=== PATIENT | female | born 1980 | race Caucasian/White ===

== ENCOUNTER 2017-08-13 14:44 | Emergency (ER) | payer SELFPAY ==
[2017-08-13 15:16] VITALS: BP 124/80
[2017-08-13] MEDS ORDERED: NORMAL SALINE 1000 ML 1,000 ML IV PRN (16:17)
[2017-08-13] MEDS ORDERED: MORPHINE SULFATE 10 MG/ML INJ IV ONE (16:17)
[2017-08-13] MEDS ORDERED: ONDANSETRON HCL INJ/PF 4 MG/2 ML SDV IV ONE (16:17)
--- NOTE | 2017-08-13 16:18 | ER Document Report ---
ED Medical Screen (RME) - General Chief Complaint: Abdominal Pain Stated Complaint: ABDOMINAL PAIN Time Seen by Provider: 08/13/17 16:16 Notes: Patient presents with 1 year of right upper quadrant and epigastric pain. It is gotten worse over last 24 hours. She has severe nausea and diarrhea. She has had 3 previous C-sections and several D&Cs. No problems with urination. TRAVEL OUTSIDE OF THE [place] IN LAST 30 DAYS: No - Related Data Allergies/Adverse Reactions: No Known Allergies Allergy (Unverified 08/13/17 15:16) Home Medications: Current Home Medications No Home Medications 08/13/17 [History] Past Medical History - Social History Chew tobacco use (# tins/day): No Frequency of alcohol use: None Drug Abuse: None Neurological Medical History: Reports: Hx Migraine Renal/ Medical History: Denies: Hx Peritoneal Dialysis Past Surgical History: Reports: Hx Section - X3, Hx Genitourinary Surgery - D&Cs, Hx Hysterectomy - Immunizations Hx Diphtheria, Pertussis, Tetanus Vaccination: Yes Physical Exam - Vital signs Vitals: Temp Pulse Resp BP Pulse Ox 97.5 F 92 18 124/80 97 08/13/17 15:13 08/13/17 15:13 08/13/17 15:13 08/13/17 15:13 08/13/17 15:13 Course - Vital Signs Vital signs: Temp Pulse Resp BP Pulse Ox 97.5 F 92 18 124/80 97 08/13/17 15:13 08/13/17 15:13 08/13/17 15:13 08/13/17 15:13 08/13/17 15:13
[2017-08-13 17:12] LABS: ABSOLUTE BASOPHILS # (AUTO) 0.1 10^3/uL (0.0-0.2); ABSOLUTE EOSINOPHILS # (AUTO) 0.1 10^3/uL (0.0-0.6); ABSOLUTE LYMPHOCYTES (AUTO) 1.9 10^3/uL (0.5-4.7); ABSOLUTE MONOCYTES (AUTO) 0.4 10^3/uL (0.1-1.4); ABSOLUTE NEUT (AUTO) 4.9 10^3/uL (1.7-8.2); BASOPHILS % (AUTO) 0.9 % (0-2); EOSINOPHILS % (AUTO) 1.7 % (0-6); HEMOGLOBIN 15.4 g/dL (12.0-15.5); HGB HCT DIFFERENCE 2.2; LYMPHOCYTES % (AUTO) 25.9 % (13-45); MEAN CORPUSCULAR HEMOGLOBIN 36.6 pg (27.0-33.4); MEAN CORPUSCULAR HGB CONC 35.1 g/dL (32.0-36.0); MEAN CORPUSCULAR VOLUME 104 fl (80-97); MONOCYTES % (AUTO) 5.4 % (3-13); RED BLOOD COUNT 4.22 10^6/uL (3.72-5.28); RED CELL DISTRIBUTION WIDTH 12.9 % (11.5-14.0); SEGMENTED NEUTROPHILS % (AUTO) 66.1 % (42-78); WHITE BLOOD COUNT 7.5 10^3/uL (4.0-10.5)
[2017-08-13 17:29] LABS: APPEARANCE,URINE SLIGHTLY-CLOUDY; BILIRUBIN,URINE NEGATIVE (NEGATIVE); GLUCOSE, URINE NEGATIVE (NEGATIVE); KETONES,URINE NEGATIVE (NEGATIVE); LEUKOCYTE ESTERASE,URINE NEGATIVE (NEGATIVE); NITRITE,URINE NEGATIVE (NEGATIVE); PROTEIN,URINE 30 mg/dL (NEGATIVE); URINE SPECIFIC GRAVITY 1.021; UROBILINOGEN,URINE NEGATIVE mg/dL (<2.0)
[2017-08-13 17:39] LABS: ALANINE AMINOTRANSFERASE 24 U/L (9-52); ALBUMIN 4.6 g/dL (3.5-5.0); ALKALINE PHOSPHATASE 40 U/L (38-126); ANION GAP 16 (5-19); ASPARTATE AMINO TRANSFERASE 19 U/L (14-36); BILIRUBIN,DIRECT 0.4 mg/dL (0.0-0.4); BILIRUBIN,TOTAL 0.5 mg/dL (0.2-1.3); BLOOD UREA NITROGEN 14 mg/dL (7-20); CALCIUM 10.1 mg/dL (8.4-10.2); CARBON DIOXIDE 23 mmol/L (22-30); CHLORIDE 105 mmol/L (98-107); CREATININE RESULT 0.86 mg/dL (0.52-1.25); GLUCOSE 87 mg/dL (75-110); LIPASE 68.7 U/L (23-300); POTASSIUM 3.5 mmol/L (3.6-5.0); SODIUM 143.5 mmol/L (137-145); TOTAL PROTEIN 8.2 g/dL (6.3-8.2)
[2017-08-13] MEDS ORDERED: KETOROLAC TROMETHAMINE INJ/PF 30 MG/1 ML SDV IV ONE (19:23)
[2017-08-13] MEDS ORDERED: LIDOCAINE 2% VISCOUS SOLN 20 ML UDCUP PO ONE (19:32)
[2017-08-13] MEDS ORDERED: METOCLOPRAMIDE HCL ORAL SOLN 10 MG/10 ML UDCUP PO ONE (19:32)
[2017-08-13] MEDS ORDERED: MAG HYDROX/AL HYDROX/SIMETH SUSP 30 ML UDCUP PO ONE (19:32)
[2017-08-13] MEDS ORDERED: FAMOTIDINE 20 MG TABLET PO ONE (19:33)
--- NOTE | 2017-08-13 19:34 | ER Document Report ---
ED General - General Chief Complaint: Abdominal Pain Stated Complaint: ABDOMINAL PAIN Time Seen by Provider: 08/13/17 16:16 Notes: Patient is a 37-year-old female with a past medical history, history of chronic abdominal pain for the past 1 year who presents with an acute exacerbation of this chronic abdominal pain. States this pain is located in her central and epigastric abdomen. Describes it as a dull, burning pain that radiates as a burning pain up into her chest. States it is worsened by eating. She has tried Pepto-Bismol without improvement of her symptoms. States that typically the pain does resolve after she takes an [id number] medication such as Pepto-Bismol but has not responded today. She has not seen a primary care doctor regarding today's concerns. She denies any vomiting, melena, hematochezia or hematemesis. She has never seen a GI physician for this pain or had an endoscopy. TRAVEL OUTSIDE OF THE [place] IN LAST 30 DAYS: No - Related Data Allergies/Adverse Reactions: No Known Allergies Allergy (Unverified 08/13/17 15:16) Past Medical History - General Information source: Patient - Social History Smoking Status: Current Every Day Smoker Chew tobacco use (# tins/day): No Frequency of alcohol use: None Drug Abuse: None Lives with: Spouse/Significant other Family History: Reviewed & Not Pertinent Patient has suicidal ideation: No Patient has homicidal ideation: No Neurological Medical History: Reports: Hx Migraine Renal/ Medical History: Denies: Hx Peritoneal Dialysis Past Surgical History: Reports: Hx Section - X3, Hx Genitourinary Surgery - D&Cs, Hx Hysterectomy - Immunizations Hx Diphtheria, Pertussis, Tetanus Vaccination: Yes Review of Systems - Review of Systems Notes: Constitutional: Negative for fever. HENT: Negative for sore throat. Eyes: Negative for visual changes. Cardiovascular: Negative for chest pain. Respiratory: Negative for shortness of breath. Gastrointestinal: Positive for abdominal pain and nausea Genitourinary: Negative for dysuria. Musculoskeletal: Negative for back pain. Skin: Negative for rash. Neurological: Negative for headaches, weakness or numbness. 10 point ROS negative except as marked above and in HPI. Physical Exam - Vital signs Vitals: Temp Pulse Resp BP Pulse Ox 97.5 F 92 18 124/80 97 08/13/17 15:13 08/13/17 15:13 08/13/17 15:13 08/13/17 15:13 08/13/17 15:13 Interpretation: Normal Notes: PHYSICAL EXAMINATION: GENERAL: Appears mildly uncomfortable but no acute distress HEAD: Atraumatic, normocephalic. EYES: Pupils equal round and reactive to light, extraocular movements intact, sclera anicteric, conjunctiva are normal. ENT: nares patent, oropharynx clear without exudates. Moist mucous membranes. NECK: Normal range of motion, supple without lymphadenopathy LUNGS: Breath sounds clear to auscultation bilaterally and equal. No wheezes rales or rhonchi. HEART: Regular rate and rhythm without murmurs ABDOMEN: Soft, focal tenderness to the epigastrium and central abdomen. Negative Terrazas sign. Mild right upper quadrant abdominal tenderness. No focal rebound or guarding. No rigidity. Bowel sounds are present. EXTREMITIES: Normal range of motion, no pitting or edema. No cyanosis. NEUROLOGICAL: No focal neurological deficits. Moves all extremities spontaneously and on command. PSYCH: Normal mood, normal affect. SKIN: Warm, Dry, normal turgor, no rashes or lesions noted. Course - Re-evaluation Re-evalutation: 08/13/17 19:33 Patient presents with epigastric abdominal pain with associated reflux symptoms most consistent with likely chronic upper intestinal irritation. Right upper quadrant ultrasound does not demonstrate any evidence of acute cholecystitis or cholelithiasis. Although patient was reported to have a sonographic Terrazas sign and has sludge, there is no gallbladder wall thickening or pericholecystic fluid. Repeat abdominal exams again consistently show more pain in the epigastrium and central abdomen versus the right upper quadrant. I do not believe she requires an acute cholecystectomy as I suspect that based on her history and exam her symptoms are most more likely to be related to intestinal irritation versus an acute cholecystitis. Lipase is normal. No LFT changes. Based on history and exam, I do not suspect ACS, pulmonary embolus, SBO, mesenteric ischemia, acute pancreatitis, biliary pathology, or an abdominal aortic dissection. Patient has no lower abdominal tenderness to suggest an acute appendicitis. At this time will discharge with return precautions and follow-up recommendations. Verbal discharge instructions given a the bedside and opportunity for questions given. Medication warnings reviewed. Patient is in agreement with this plan and has verbalized understanding of return precautions and the need for primary care follow-up in the next 24-72 hours. - Vital Signs Vital signs: Temp Pulse Resp BP Pulse Ox 97.5 F 92 18 124/80 97 08/13/17 15:13 08/13/17 15:13 08/13/17 15:13 08/13/17 15:13 08/13/17 15:13 - Laboratory Result Diagrams: 08/13/17 16:50 08/13/17 16:50 Laboratory results interpreted by me: 08/13/17 08/13/17 08/13/17 16:36 16:50 16:50 MCV 104 H MCH 36.6 H Potassium 3.5 L Urine Protein 30 H - Diagnostic Test Radiology reviewed: Reports reviewed Discharge - Discharge Clinical Impression: Nausea Abdominal pain Qualifiers: Abdominal location: epigastric Qualified Code(s): R10.13 - Epigastric pain Condition: Good Disposition: HOME, SELF-CARE Additional Instructions: Your symptoms appear to be most consistent with stomach or upper intestinal irritation. Please begin taking famotidine 40 mg in the morning and 40 mg at night. This medicine can be purchased directly [id number]. You may also take medicine such as Pepto-Bismol or Tums to assist with your pain. Please return to emergency department immediately if you have worsening of your pain, shortness of breath, vomiting, become unable to exert yourself due to pain or difficulty breathing, you pass out, or have any pain that radiates into your arms, jaw, or back. Please also return if you have any additional symptoms that are concerning to you. Prescriptions: Sucralfate [Carafate 1 gm Tablet] 1 gm PO ACHS #120 tablet
--- NOTE | 2017-08-13 21:16 | RADIOLOGY REPORT (SQ) ---
EXAM DESCRIPTION: U/S ABDOMEN LIMITED W/O DOP COMPLETED DATE/TIME: 08/13/2017 9:01 pm REASON FOR STUDY: ruq, epigastric pain COMPARISON: None. TECHNIQUE: Dynamic and static grayscale images acquired of the abdomen and recorded on PACS. Additio nal selected color Doppler and spectral images recorded. LIMITATIONS: None. FINDINGS: PANCREAS: No masses. Visualized pancreatic duct normal caliber. LIVER: No masses. Echotexture normal. LIVER VASCULATURE: Normal directional flow of the main portal vein and hepatic veins. GALLBLADDER: Sludge in the gallbladder. No thickening of the gallbladder wall. ULTRASOUND-DETECTED TERRAZAS'S SIGN: Positive. INTRAHEPATIC DUCTS AND COMMON DUCT: CBD and intrahepatic ducts normal caliber. No filling defects. INFERIOR VENA CAVA: Normal flow. AORTA: No aneurysm. RIGHT KIDNEY: Normal size. Normal echogenicity. No solid or suspicious masses. No hydronephrosis. No calcifications. PERITONEAL AND RIGHT PLEURAL SPACE: No ascites or effusions. OTHER: No other significant findings. IMPRESSION: Gallbladder sludge. Positive ultrasound detected Terrazas's sign. TECHNICAL DOCUMENTATION: JOB ID: [id number]- All Rights Reserved
== END 2017-08-13 23:00 | disposition home or self-care (01) ==
LOC: ER 14:44
DX: R10.13 Epigastric pain (principal); G89.29 Other chronic pain; K82.8 Other specified diseases of gallbladder; R11.0 Nausea; F17.200 Nicotine dependence, unspecified, uncomplicated; Z90.710 Acquired absence of both cervix and uterus
CPT/HCPCS: 99284; 96361; 96374; 96375; 36415; 83690; 85025; 80053; 81001; 76705; J3490; J1885; J2270; J2405; J7030

== ENCOUNTER 2017-09-21 08:23 | Emergency (ER) | payer SELFPAY ==
[2017-09-21] MEDS ORDERED: MORPHINE SULFATE 10 MG/ML INJ IV ONE ×2 (09:02→11:28)
[2017-09-21] MEDS ORDERED: ONDANSETRON HCL INJ/PF 4 MG/2 ML SDV IV ONE (09:02)
[2017-09-21] MEDS ORDERED: FLUCONAZOLE 100 MG TABLET PO ONE (09:06)
--- NOTE | 2017-09-21 09:06 | ER Document Report ---
ED General - General Chief Complaint: Abdominal Pain Stated Complaint: ABDOMINAL PAIN, VOMITING Notes: 37-year-old female with a known history of gallbladder sludge presents with pain right upper quadrant worse with eating radiating the left upper quadrant consistent with nausea vomiting and weakness. This is been going on for about a month intermittently but is worse for 2 days. She says she has had fevers and chills but did not measure. She does have some vaginal discharge but it "feels like a yeast infection." No vaginal bleeding. Decreased oral intake for 2-3 days. TRAVEL OUTSIDE OF THE [place] IN LAST 30 DAYS: No - Related Data Allergies/Adverse Reactions: No Known Allergies Allergy (Unverified 09/21/17 08:26) Past Medical History - Social History Smoking Status: Unknown if Ever Smoked Family History: Reviewed & Not Pertinent, Other Patient has suicidal ideation: No Patient has homicidal ideation: No Neurological Medical History: Reports: Hx Migraine Renal/ Medical History: Denies: Hx Peritoneal Dialysis Past Surgical History: Reports: Hx Section - X3, Hx Genitourinary Surgery - D&Cs, Hx Hysterectomy - Immunizations Hx Diphtheria, Pertussis, Tetanus Vaccination: Yes Review of Systems - Review of Systems Notes: REVIEW OF SYSTEMS GEN: Denies fever, chills, weight loss ENT: Denies sore throat, nasal discharge, ear pain EYES: Denies blurry vision, eye pain, discharge CV: Denies chest pain, palpitations, edema RESP: Denies cough, shortness of breath, wheezing GI: Abdominal pain anorexia vomiting MSK: Denies joint pain/swelling, edema, SKIN: Denies rash, skin lesions LYMPH: Denies swollen glands/lymph nodes NEURO: Denies headache, focal weakness or numbness, dizziness PSYCH: Denies depression, suicidal or homicidal ideation PHYSICAL EXAMINATION General: No acute distress, well-nourished Head: Atraumatic, normocephalic ENT: Mouth normal, oropharynx moist, no exudates or tonsillar enlargement Eyes: Conjunctiva normal, pupils equal, lids normal Neck: No JVD, supple, no guarding CVS: Normal rate, regular rhythm, no murmurs Resp: No resp distress, equal and normal breath sounds bilaterally GI: Nondistended, soft, right upper quadrant tenderness with Terrazas's sign, no other tenderness or rebound or guarding Ext: No deformities, no edema, normal range of motion in upper and lower ext Back: No CVA or midline TTP Skin: No rash, warm Lymphatic: No lymphadeopathy noted Neuro: Awake, alert. Face symmetric. GCS 15. Physical Exam - Vital signs Vitals: Temp Pulse Resp BP Pulse Ox 98.2 F 100 16 138/85 H 98 09/21/17 08:26 09/21/17 08:26 09/21/17 08:26 09/21/17 08:26 09/21/17 08:26 Course - Re-evaluation Re-evalutation: 09/21/17 09:06 Ongoing right upper quadrant pain with nausea vomiting anorexia. Well- appearing patient but does have Terrazas sign. Differential includes biliary colic, sludge, stones, cholecystitis. In terms of vaginal discharge is likely yeast I will treat empirically as such. She will receive medicine for symptoms , labs and ultrasound. - Vital Signs Vital signs: Temp Pulse Resp BP Pulse Ox 97.5 F 77 16 113/70 96 09/21/17 11:28 09/21/17 11:28 09/21/17 08:26 09/21/17 11:28 09/21/17 11:28 - Laboratory Result Diagrams: 09/21/17 09:15 09/21/17 10:31 Laboratory results interpreted by me: 09/21/17 09/21/17 09:15 10:31 MCV 105 H MCH 36.1 H Chloride 109 H Carbon Dioxide 20 L AST 11 L Alkaline Phosphatase 37 L Discharge - Discharge Clinical Impression: Abdominal pain, bilateral upper quadrant, Biliary sludge determined by ultrasound Condition: Good Disposition: HOME, SELF-CARE Instructions: Gallbladder Disease ([facility]) Additional Instructions: Your ultrasound looks like it did last time, with sludge but no gallstones or infection. Please eat a mild diet with no fatty foods or spicy foods, take pain medicine and nausea medicine as needed, and call the surgeon today for a follow-up appointment. Prescriptions: Hydrocodone/Acetaminophen [[place] 5-325 Tablet] 1 each PO Q4 PRN 3 Days tablet PRN Reason: Ondansetron HCl [Zofran 4 mg Tablet] 1 - 2 tab PO Q4H PRN #10 tablet PRN Reason: Forms: Return to Work Referrals: OSMAN CLINE DO [SURESH OSPINA] - Follow up in 3-5 days
[2017-09-21 09:29] LABS: ABSOLUTE EOSINOPHILS # (AUTO) 0.1 10^3/uL (0.0-0.6); ABSOLUTE LYMPHOCYTES (AUTO) 1.8 10^3/uL (0.5-4.7); ABSOLUTE MONOCYTES (AUTO) 0.4 10^3/uL (0.1-1.4); ABSOLUTE NEUT (AUTO) 2.5 10^3/uL (1.7-8.2); BASOPHILS % (AUTO) 0.4 % (0-2); EOSINOPHILS % (AUTO) 1.9 % (0-6); HEMATOCRIT 41.1 % (36.0-47.0); HEMOGLOBIN 14.2 g/dL (12.0-15.5); HGB HCT DIFFERENCE 1.5; LYMPHOCYTES % (AUTO) 37.2 % (13-45); MEAN CORPUSCULAR HEMOGLOBIN 36.1 pg (27.0-33.4); MEAN CORPUSCULAR HGB CONC 34.5 g/dL (32.0-36.0); MEAN CORPUSCULAR VOLUME 105 fl (80-97); MONOCYTES % (AUTO) 8.8 % (3-13); RED BLOOD COUNT 3.93 10^6/uL (3.72-5.28); SEGMENTED NEUTROPHILS % (AUTO) 51.7 % (42-78); WHITE BLOOD COUNT 4.8 10^3/uL (4.0-10.5)
--- NOTE | 2017-09-21 10:52 | RADIOLOGY REPORT (SQ) ---
EXAM DESCRIPTION: U/S ABDOMEN LIMITED W/O DOP COMPLETED DATE/TIME: 09/21/2017 10:31 am REASON FOR STUDY: known sludge, ongoing n/v COMPARISON: Comparison 08/13/2017 TECHNIQUE: Dynamic and static grayscale images acquired of the liver and recorded on PACS. Additiona l selected color Doppler and spectral images recorded. Selected velocities recorded. LIMITATIONS: None. FINDINGS: LIVER: Normal in echogenicity and size. No focal lesions are seen. LIVER VASCULATURE: Normal directional flow of the main portal vein and hepatic veins. The IVC is pat ent. GALLBLADDER: Some sludge seen. No definite stones. No pericholecystic fluid. ULTRASOUND-DETECTED SMITH'S SIGN: Negative. INTRAHEPATIC DUCTS AND COMMON DUCT: No dilated intrahepatic ducts. CBD diameter normal. ASCITES: None. OTHER: No hydronephrosis right kidney. Limited visualization of the pancreas. No AAA. IMPRESSION: Some sludge seen of the gallbladder. No definite stones. TECHNICAL DOCUMENTATION: JOB ID: [id number] [employer]- All Rights Reserved
[2017-09-21 11:06] LABS: ALANINE AMINOTRANSFERASE 26 U/L (9-52); ALBUMIN 3.8 g/dL (3.5-5.0); ALKALINE PHOSPHATASE 37 U/L (38-126); ANION GAP 12 (5-19); ASPARTATE AMINO TRANSFERASE 11 U/L (14-36); BILIRUBIN,DIRECT 0.3 mg/dL (0.0-0.4); BILIRUBIN,TOTAL 0.4 mg/dL (0.2-1.3); BLOOD UREA NITROGEN 12 mg/dL (7-20); CARBON DIOXIDE 20 mmol/L (22-30); CHLORIDE 109 mmol/L (98-107); CREATININE RESULT 0.63 mg/dL (0.52-1.25); GLUCOSE 86 mg/dL (75-110); POTASSIUM 3.7 mmol/L (3.6-5.0); SODIUM 141.4 mmol/L (137-145); TOTAL PROTEIN 6.4 g/dL (6.3-8.2)
[2017-09-21 11:08] LABS: CALCIUM 8.9 mg/dL (8.4-10.2)
[2017-09-21 11:30] VITALS: BP 113/70
== END 2017-09-21 11:52 | disposition home or self-care (01) ==
LOC: ER 08:23
DX: R10.10 Upper abdominal pain, unspecified (principal); K83.8 Other specified diseases of biliary tract; Z90.710 Acquired absence of both cervix and uterus
CPT/HCPCS: 96376; 99284; 96374; 96375; 36415; 83690; 85025; 80053; 76705; J2270; J2405

== ENCOUNTER 2017-09-30 19:47 | Inpatient (IN) | payer MEDICAID ==
[2017-09-30] MEDS ORDERED: KETOROLAC TROMETHAMINE INJ/PF 30 MG/1 ML SDV IV ONE (20:50)
[2017-09-30] MEDS ORDERED: NORMAL SALINE 1000 ML 1,000 ML IV ONE (20:50)
[2017-09-30] MEDS ORDERED: ONDANSETRON HCL INJ/PF 4 MG/2 ML SDV IV ONE (20:50)
--- NOTE | 2017-09-30 20:51 | ER Document Report ---
ED Medical Screen (RME) - General Chief Complaint: Abdominal Pain Stated Complaint: VOMITING Time Seen by Provider: 09/30/17 20:49 Notes: Patient states this is her third visit in approximately a month for upper abdominal and epigastric pain. She states she has been diagnosed with gallbladder sludge. She states she has an appointment with a surgeon next Thursday but could not wait due to the pain and vomiting. TRAVEL OUTSIDE OF THE [place] IN LAST 30 DAYS: No - Related Data Allergies/Adverse Reactions: No Known Allergies Allergy (Unverified 09/21/17 08:26) Past Medical History - Social History Chew tobacco use (# tins/day): No Frequency of alcohol use: Rare Drug Abuse: None - Past Medical History Cardiac Medical History: Reports: Hx Hypercholesterolemia, Hx Hypertension Neurological Medical History: Reports: Hx Migraine Renal/ Medical History: Denies: Hx Peritoneal Dialysis Past Surgical History: Reports: Hx Section - X3, Hx Genitourinary Surgery - D&Cs, Hx Hysterectomy - Immunizations Hx Diphtheria, Pertussis, Tetanus Vaccination: Yes Physical Exam - Vital signs Vitals: Temp Pulse Resp BP Pulse Ox 98.2 F 107 H 18 123/79 99 09/30/17 20:07 09/30/17 20:07 09/30/17 20:07 09/30/17 20:07 09/30/17 20:07 Course - Vital Signs Vital signs: Temp Pulse Resp BP Pulse Ox 98.2 F 107 H 18 123/79 99 09/30/17 20:07 09/30/17 20:07 09/30/17 20:07 09/30/17 20:07 09/30/17 20:07
[2017-09-30 21:34] LABS: ABSOLUTE EOSINOPHILS # (AUTO) 0.1 10^3/uL (0.0-0.6); ABSOLUTE LYMPHOCYTES (AUTO) 2.5 10^3/uL (0.5-4.7); ABSOLUTE MONOCYTES (AUTO) 0.4 10^3/uL (0.1-1.4); ABSOLUTE NEUT (AUTO) 3.2 10^3/uL (1.7-8.2); BASOPHILS % (AUTO) 0.6 % (0-2); HEMATOCRIT 47.2 % (36.0-47.0); HGB HCT DIFFERENCE 0.8; LYMPHOCYTES % (AUTO) 41.1 % (13-45); MEAN CORPUSCULAR HEMOGLOBIN 35.5 pg (27.0-33.4); MEAN CORPUSCULAR HGB CONC 33.9 g/dL (32.0-36.0); MEAN CORPUSCULAR VOLUME 105 fl (80-97); MONOCYTES % (AUTO) 6.3 % (3-13); RED BLOOD COUNT 4.51 10^6/uL (3.72-5.28); RED CELL DISTRIBUTION WIDTH 13.3 % (11.5-14.0); WHITE BLOOD COUNT 6.2 10^3/uL (4.0-10.5)
--- NOTE | 2017-09-30 21:43 | ER Document Report ---
ED General - General Chief Complaint: Abdominal Pain Stated Complaint: VOMITING Time Seen by Provider: 09/30/17 20:49 TRAVEL OUTSIDE OF THE [place] IN LAST 30 DAYS: No - HPI Notes: Patient is a 37-year-old female with known history of gallbladder sludge who presents the ED for the second time in 8-9 days and the third time in the last 2 months complaining of right upper quadrant pain that radiates to her left upper quadrant, nausea, vomiting, and decreased p.o. intake. Patient states that over the last 3 days, patient has not had a normal meal because of the nausea and vomiting. Patient states that she has been having trouble keeping any fluids down over the last 24 hours as well. Patient states that she is scheduled to meet with the general surgeon in 6 days, but came here because the pain worsened and unable to keep anything down. Patient denies any drug allergies or significant medical history otherwise. Denies any headache, fever , URI, sore throat, chest pain, palpitations, syncope, cough, shortness of breath, wheeze, dyspnea, melena, hematochezia, hematemesis, acholic stool, diarrhea, urinary retention, dysuria, hematuria, back pain, loss of control of bowel or bladder, numbness/tingling, muscle paralysis/weakness, or rash. - Related Data Allergies/Adverse Reactions: No Known Allergies Allergy (Unverified 09/21/17 08:26) Past Medical History - Social History Smoking Status: Current Every Day Smoker Chew tobacco use (# tins/day): No Frequency of alcohol use: Rare Drug Abuse: None Family History: Reviewed & Not Pertinent, Other Patient has suicidal ideation: No Patient has homicidal ideation: No - Past Medical History Cardiac Medical History: Reports: Hx Hypercholesterolemia, Hx Hypertension Neurological Medical History: Reports: Hx Migraine Renal/ Medical History: Denies: Hx Peritoneal Dialysis Past Surgical History: Reports: Hx Section - X3, Hx Genitourinary Surgery - D&Cs, Hx Hysterectomy - Immunizations Hx Diphtheria, Pertussis, Tetanus Vaccination: Yes Review of Systems - Review of Systems Notes: REVIEW OF SYSTEMS: CONSTITUTIONAL : Denies fever, chills, or sweats. Denies recent illness. EENT: Denies eye, ear, throat, or mouth pain or symptoms. Denies nasal or sinus congestion or discharge. Denies throat, tongue, or mouth swelling or difficulty swallowing. CARDIOVASCULAR: Denies chest pain. Denies palpitations or racing or irregular heart beat. Denies ankle edema. RESPIRATORY: Denies cough, cold, or chest congestion. Denies shortness of breath, difficulty breathing, or wheezing. GASTROINTESTINAL: see hpi GENITOURINARY: Denies difficulty urinating, painful urination, burning, frequency, blood in urine, or discharge. FEMALE GENITOURINARY: Denies vaginal bleeding, heavy or abnormal periods, irregular periods. Denies vaginal discharge or odor. MUSCULOSKELETAL: Denies back or neck pain or stiffness. Denies joint pain or swelling. SKIN: Denies rash, lesions or sores. NEUROLOGICAL: Denies confusion or altered mental status. Denies passing out or loss of consciousness. Denies dizziness or lightheadedness. Denies headache. Denies weakness or paralysis or loss of use of either side. Denies problems with gait or speech. Denies sensory loss, numbness, or tingling. ALL OTHER SYSTEMS REVIEWED AND NEGATIVE. Dictation was performed using [email or web address] voice recognition software Physical Exam - Vital signs Vitals: Temp Pulse Resp BP Pulse Ox 98.2 F 107 H 18 123/79 99 09/30/17 20:07 09/30/17 20:07 09/30/17 20:07 09/30/17 20:07 09/30/17 20:07 Notes: PHYSICAL EXAMINATION: GENERAL: Well-appearing, well-nourished and in no acute distress. A&Ox4 HEAD: Atraumatic, normocephalic. EYES: Pupils equal round and reactive to light, extraocular movements intact, sclera anicteric, conjunctiva are normal. ENT: oropharynx clear without exudates. No tonsilar hypertrophy or erythema. Moist mucous membranes. NECK: Normal range of motion, supple without lymphadenopathy LUNGS: Breath sounds clear to auscultation bilaterally and equal. No wheezes rales or rhonchi. HEART: Regular rate and rhythm without murmurs, rubs, gallops. ABDOMEN: Soft, nondistended abdomen. No guarding, no rebound. No masses appreciated. Normal bowel sounds present. No CVA tenderness bilaterally. + tenderness to the RUQ and epigastrum. Musculoskeletal: FROM to passive/active. Strength 5+/5. Extremities: No cyanosis, clubbing, or edema b/l. Peripheral pulses 2+. Capillary refill less than 3 seconds. NEUROLOGICAL: Normal speech, normal gait. Normal sensory, motor exams PSYCH: Normal mood, normal affect. SKIN: Warm, Dry, normal turgor, no rashes or lesions noted. Course - Re-evaluation Re-evalutation: 09/30/17 23:[address] Arrington and Dr. Garcia (Gen Surg) Dr. Garcia wants patient admitted under his care. He will come in and eval patient and place his orders. Vitals and labs appear stable, clinically, however, she seems in discomfort from what is suspected to be a gallbladder etiology at this time. - Vital Signs Vital signs: Temp Pulse Resp BP Pulse Ox 98.2 F 107 H 18 123/79 99 09/30/17 20:07 09/30/17 20:07 09/30/17 20:07 09/30/17 20:07 09/30/17 20:07 - Laboratory Result Diagrams: 09/30/17 21:07 09/30/17 21:07 Laboratory results interpreted by me: 09/30/17 09/30/17 09/30/17 21:07 21:07 21:59 Hgb 16.0 H Hct 47.2 H MCV 105 H MCH 35.5 H Potassium 5.5 H Carbon Dioxide 17 L Anion Gap 21 H Calcium 11.2 H Total Protein 9.1 H Albumin 5.4 H Urine Ketones 20 H Discharge - Discharge Clinical Impression: Biliary sludge Condition: Stable Disposition: ADMITTED INPATIENT Admitting Provider: Surgicalist - Dr. Garcia Unit Admitted: Surgical Floor
[2017-09-30 21:46] LABS: ALANINE AMINOTRANSFERASE 31 U/L (9-52); ALBUMIN 5.4 g/dL (3.5-5.0); ALKALINE PHOSPHATASE 56 U/L (38-126); ASPARTATE AMINO TRANSFERASE 16 U/L (14-36); BILIRUBIN,DIRECT 0.4 mg/dL (0.0-0.4); BILIRUBIN,TOTAL 0.7 mg/dL (0.2-1.3); BLOOD UREA NITROGEN 16 mg/dL (7-20); CALCIUM 11.2 mg/dL (8.4-10.2); CREATININE RESULT 0.91 mg/dL (0.52-1.25); GLUCOSE 80 mg/dL (75-110); LIPASE 116.2 U/L (23-300); TOTAL PROTEIN 9.1 g/dL (6.3-8.2)
[2017-09-30 21:55] LABS: CARBON DIOXIDE 17 mmol/L (22-30); CHLORIDE 104 mmol/L (98-107); POTASSIUM 5.5 mmol/L (3.6-5.0); SODIUM 141.6 mmol/L (137-145)
[2017-09-30 22:07] LABS: ANION GAP 21 (5-19)
[2017-09-30 22:27] LABS: APPEARANCE,URINE CLEAR; BILIRUBIN,URINE NEGATIVE (NEGATIVE); GLUCOSE, URINE NEGATIVE (NEGATIVE); KETONES,URINE 20 mg/dL (NEGATIVE); LEUKOCYTE ESTERASE,URINE NEGATIVE (NEGATIVE); NITRITE,URINE NEGATIVE (NEGATIVE); PROTEIN,URINE NEGATIVE (NEGATIVE); URINE SPECIFIC GRAVITY 1.026; UROBILINOGEN,URINE NEGATIVE mg/dL (<2.0)
[2017-09-30] MEDS ORDERED: MORPHINE SULFATE 10 MG/ML INJ IV ONE (22:49)
--- NOTE | 2017-09-30 22:55 | RADIOLOGY REPORT (SQ) ---
EXAM DESCRIPTION: U/S ABDOMEN LIMITED W/O DOP COMPLETED DATE/TIME: 09/30/2017 10:42 pm REASON FOR STUDY: RUQ pain, n/v COMPARISON: 09/21/2017. TECHNIQUE: Dynamic and static grayscale images acquired of the abdomen and recorded on PACS. Lyno amy selected color Doppler and spectral images recorded. LIMITATIONS: None. FINDINGS: PANCREAS: No masses. Visualized pancreatic duct normal caliber. Obscured tail. LIVER: No masses. Echotexture normal. LIVER VASCULATURE: Normal directional flow of the main portal vein and hepatic veins. GALLBLADDER: No stones. Normal wall thickness. No pericholecystic fluid. Minimal gallbladder sludge. ULTRASOUND-DETECTED SMITH'S SIGN: Negative. INTRAHEPATIC DUCTS AND COMMON DUCT: 0.2 cm diameter CBD and intrahepatic ducts normal caliber. No parmjit ling defects. INFERIOR VENA CAVA: Normal flow. AORTA: No aneurysm. RIGHT KIDNEY: Normal size. Normal echogenicity. No solid or suspicious masses. No hydronephrosis. No calcifications. PERITONEAL AND RIGHT PLEURAL SPACE: No ascites or effusions. OTHER: No other significant findings. IMPRESSION: No acute findings. Minimal gallbladder sludge. TECHNICAL DOCUMENTATION: JOB ID: [id number] [email or web address]- All Rights Reserved
[2017-09-30] MEDS ORDERED: MAG HYDROX/AL HYDROX/SIMETH SUSP 30 ML UDCUP PO ONE (23:07)
[2017-09-30] MEDS ORDERED: METOCLOPRAMIDE HCL ORAL SOLN 10 MG/10 ML UDCUP PO ONE (23:07)
[2017-09-30] MEDS ORDERED: LIDOCAINE 2% VISCOUS SOLN 20 ML UDCUP PO ONE (23:07)
[2017-09-30] MEDS ORDERED: ACETAMINOPHEN 325 MG TABLET PO PRN (23:53)
[2017-09-30] MEDS ORDERED: ONDANSETRON 4 MG TAB.RAPDIS PO PRN (23:53)
[2017-09-30] MEDS ORDERED: PROMETHAZINE HCL INJ 25 MG/1 ML VIAL IV PRN (23:53)
[2017-09-30] MEDS ORDERED: OXYCODONE-ACETAMINOPHEN 5-325 MG TABLET PO PRN (23:53)
[2017-09-30] MEDS ORDERED: DEXTROSE 50%-WATER 25 GM/50 ML DISP.SYRIN IV PRN ×2 (23:53)
[2017-09-30] MEDS ORDERED: DEXTROSE 40% GEL 15 GM TUBE PO PRN ×2 (23:53)
[2017-09-30] MEDS ORDERED: ONDANSETRON HCL INJ/PF 4 MG/2 ML SDV IV PRN (23:53)
[2017-09-30] MEDS ORDERED: GLUCAGON,HUMAN RECOMB 1 MG INJ SUBCUT PRN (23:53)
[2017-09-30] MEDS ORDERED: MAGNESIUM HYDROXIDE SUSP 30 ML UDCUP PO PRN (23:53)
[2017-09-30] MEDS ORDERED: PROMETHAZINE HCL 25 MG TABLET PO PRN (23:53)
--- NOTE | 2017-09-30 23:56 | RADIOLOGY REPORT (SQ) ---
EXAM DESCRIPTION: CHEST PA/LAT COMPLETED DATE/TIME: 09/30/2017 11:29 pm REASON FOR STUDY: epigastric/RUQ pain COMPARISON: None. EXAM PARAMETERS: NUMBER OF VIEWS: two views TECHNIQUE: Digital Frontal and Lateral radiographic views of the chest acquired. RADIATION DOSE: NA LIMITATIONS: none FINDINGS: LUNGS AND PLEURA: No opacities, masses or pneumothorax. No pleural effusion. MEDIASTINUM AND HILAR STRUCTURES: No masses or contour abnormalities. HEART AND VASCULAR STRUCTURES: Heart normal size. No evidence for failure. BONES: No acute findings. HARDWARE: None in the chest. OTHER: No other significant finding. IMPRESSION: NO SIGNIFICANT RADIOGRAPHIC FINDING IN THE CHEST. TECHNICAL DOCUMENTATION: JOB ID: [id number] [email or web address]- All Rights Reserved
--- NOTE | 2017-10-01 00:08 | PDOC H&P ---
History of Present Illness Admission Date/PCP: 09/30/17 23:30 Patient complains of: Abdominal pain History of Present Illness: AMBER DAMICO is a 37 year old female who presents with a one-year history of abdominal pain. This is been worse over the past 3 months. She reports crampy epigastric and right upper quadrant pain which is worse after eating. She reports about a 100 pound weight loss over the past year because of these symptoms. She reports nausea and vomiting associated with eating as well. She has been seen 3 times in the emergency department over the past several months. She had a scheduled appointment to see a surgeon in the outpatient setting for this coming Thursday but because of the worsening pain nausea and vomiting she presented to the emergency department. Her gallbladder ultrasound revealed sludge. There is no pericholecystic fluid or gallbladder wall thickening. Laboratory studies were normal with normal white count as well as normal liver function test. Because of severe symptomatology, she is being admitted for cholecystectomy. She has no history of pancreatitis. She does not drink alcohol. She does smoke. She does not use nonsteroidals. She has no history of ulcer disease. Past Medical History Cardiac Medical History: Reports: Hyperlipidema, Hypertension Neurological Medical History: Reports: Migraine Psychiatric Medical History: Reports: Depression Past Surgical History Past Surgical History: Tube tympanoplasty Past Surgical History: Reports: Section - X3, Hysterectomy Social History Smoking Status: Current Every Day Smoker Cigarettes Packs Per Day: 0.5 Frequency of Alcohol Use: None Family History Family History: Reviewed & Not Pertinent, Other Parental Family History Reviewed: Yes Children Family History Reviewed: Yes Sibling(s) Family History Reviewed.: Yes Medication/Allergy Home Medications: Hydrocodone/Acetaminophen [[place] 5-325 Tablet] 1 each PO Q4 PRN 3 Days tablet 09/21/17 Ondansetron HCl [Zofran 4 mg Tablet] 1 - 2 tab PO Q4H PRN #10 tablet 09/21/17 Allergies/Adverse Reactions: No Known Allergies Allergy (Unverified 09/21/17 08:26) Physical Exam Vital Signs: Temp Pulse Resp BP Pulse Ox 98.2 F 107 H 18 123/79 99 09/30/17 20:07 09/30/17 20:07 09/30/17 20:07 09/30/17 20:07 09/30/17 20:07 Exam: Awake, alert, oriented. Appears uncomfortable. HEENT: Pupils equal and reactive to light, extraocular motions intact. Sclera is anicteric. Mucous membranes are dry. Neck: Supple without adenopathy or thyromegaly. Lungs: Clear Cardiovascular: Regular rate Abdomen: Soft, tender in the epigastric and right upper quadrant. She does not have Terrazas sign. No hepatomegaly is noted. Results Impressions: Abdomen Ultrasound 09/30/17 21:38 IMPRESSION: No acute findings. Minimal gallbladder sludge. Chest X-Ray 09/30/17 23:07 IMPRESSION: NO SIGNIFICANT RADIOGRAPHIC FINDING IN THE CHEST. Assessment & Plan - Diagnosis (1) Symptomatic cholelithiasis Is this a current diagnosis for this admission?: Yes Plan: She has symptomatic cholelithiasis and this is her third emergency department presentation. She does have right upper quadrant tenderness. She reports 100 pound weight loss over the past year secondary to symptoms of postprandial food intolerance. She will be admitted to the hospital. Start IV fluid hydration. Dr. Mcconnell will see her in the morning and discuss cholecystectomy with her at that time.
[2017-10-01] MEDS: DEXTROSE 5%-LACTATED RINGERS 1,000 ML IV PRN ×3 (00:32→23:38)
[2017-10-01] MEDS: MORPHINE SULFATE 10 MG/ML INJ IV PRN ×5 (00:35→20:35)
[2017-10-01] MEDS ORDERED: INFLUENZA ADLT QUAD (36MOS+) 2017-18 VAC 0.5 ML SYR IM PRN (02:32)
--- NOTE | 2017-10-01 09:16 | PDOC PROGRESS REPORT ---
Subjective Progress Note for:: 10/01/17 Subjective:: Feels better this morning still has some epigastric abdominal pain. Patient notes that symptoms have been present for over a year with resultant 100 pound weight loss. Physical Exam Vital Signs: Temp Pulse Resp BP Pulse Ox 97.9 F 65 16 80/49 L 97 10/01/17 07:50 10/01/17 07:50 10/01/17 07:50 10/01/17 07:50 10/01/17 07:50 Intake & Output 09/30/17 10/01/17 10/02/17 06:59 06:59 06:59 Intake Total 240 Output Total 0 Balance 240 Weight 71 kg General appearance: PRESENT: no acute distress, cooperative Respiratory exam: PRESENT: clear to auscultation jennie Cardiovascular exam: PRESENT: RRR GI/Abdominal exam: PRESENT: other - Soft, nondistended, epigastric and right upper quadrant mild tenderness to palpation with no peritoneal signs. Extremities exam: PRESENT: other - No swelling Results Impressions: Abdomen Ultrasound 09/30/17 21:38 IMPRESSION: No acute findings. Minimal gallbladder sludge. Chest X-Ray 09/30/17 23:07 IMPRESSION: NO SIGNIFICANT RADIOGRAPHIC FINDING IN THE CHEST. Assessment & Plan - Diagnosis (1) Abdominal pain Qualifiers: Abdominal location: epigastric Qualified Code(s): R10.13 - Epigastric pain Is this a current diagnosis for this admission?: Yes Plan: Hard to attribute 100 pound weight loss on fairly minimal findings on ultrasound , that is sludge only. Will obtain an abdominal pelvic CT scan to start her workup. If the study is unremarkable she will need an upper endoscopy.
[2017-10-01] MEDS ORDERED: NORMAL SALINE 1000 ML 1,000 ML IV PRN (09:37)
[2017-10-01] MEDS ORDERED: ENOXAPARIN SODIUM INJ 30 MG/0.3 ML DISP.SYRIN SUBCUT SCH (10:00)
[2017-10-01] MEDS ORDERED: MAGNESIUM HYDROXIDE SUSP 30 ML UDCUP PO PRN (11:00)
[2017-10-01] MEDS ORDERED: OXYCODONE-ACETAMINOPHEN 5-325 MG TABLET PO PRN (11:00)
[2017-10-01] MEDS ORDERED: ONDANSETRON 4 MG TAB.RAPDIS PO PRN (11:00)
[2017-10-01] MEDS ORDERED: PROMETHAZINE HCL INJ 25 MG/1 ML VIAL IV PRN (11:00)
[2017-10-01] MEDS ORDERED: PROMETHAZINE HCL 25 MG TABLET PO PRN (11:00)
[2017-10-01] MEDS ORDERED: ACETAMINOPHEN 325 MG TABLET PO PRN (11:00)
[2017-10-01] MEDS: ONDANSETRON HCL INJ/PF 4 MG/2 ML SDV IV PRN ×2 (11:21→20:35)
--- NOTE | 2017-10-01 13:24 | RADIOLOGY REPORT (SQ) ---
EXAM DESCRIPTION: CT ABD/PELVIS WITH IV ORAL COMPLETED DATE/TIME: 10/01/2017 12:57 pm REASON FOR STUDY: weight loss, abdominal pain COMPARISON: Abdominal ultrasound 09/30/2017, 09/21/2017, 08/13/2017 TECHNIQUE: CT scan of the abdomen and pelvis performed using helical scanning technique with dynamic intravenous contrast injection. Patient drank oral contrast. Images reviewed with lung, soft tissue, and bone windows. Reconstructed coronal and sagittal MPR imag es reviewed. Delayed images for evaluation of the urinary system also acquired. All images stored on PACS. All CT scanners at this facility use dose modulation, iterative reconstruction, and/or weight based d osing when appropriate to reduce radiation dose to as low as reasonably achievable (ALARA). [facility]: Dose Right [facility]: CareDose [facility]: Dose Right [facility]: Teradose 4D [facility]: Unbxd CONTRAST TYPE AND DOSE: contrast/concentration: Isovue 370.00 mg/ml; Total Contrast Delivered: 77.0 ml; Total Saline Delivered: 67.0 ml RENAL FUNCTION: Creatinine 0.91 RADIATION DOSE: Up-to-date CT equipment and radiation dose reduction techniques were employed. CTDIv ol: 9.1 - 12.9 mGy. DLP: 1163 mGy-cm.. LIMITATIONS: None. FINDINGS: There is wall thickening and stranding in the fat around the 2nd portion of the duodenum and duodenum old on axial images 25-34. Question duodenum ulcer or peptic disease/duodenitis. No e xtravasation of contrast or abscess is identified. No free air or fluid. Patient drank oral contrast. No CT evidence of bowel obstruction. No colonic diverticuli. No free air or fluid. LOWER CHEST: No significant findings. No nodules or infiltrates. LIVER: Normal size. No masses. No dilated ducts. SPLEEN: Normal size. No focal lesions. PANCREAS: No masses. No significant calcifications. No adjacent inflammation or peripancreatic fluid collections. Pancreatic duct not dilated. GALLBLADDER: No identified stones by CT criteria. No inflammatory changes to suggest cholecystitis. ADRENAL GLANDS: No significant masses or asymmetry. RIGHT KIDNEY AND URETER: No solid masses. No significant calcifications. No hydronephrosis or hyd roureter. LEFT KIDNEY AND URETER: No solid masses. No significant calcifications. No hydronephrosis or hydr oureter. AORTA AND VESSELS: No aneurysm. No dissection. Renal arteries, SMA, celiac without stenosis. RETROPERITONEUM: No retroperitoneal adenopathy, hemorrhage or masses. BOWEL AND PERITONEAL CAVITY: No masses or inflammatory changes. No free fluid or peritoneal masses. APPENDIX: Normal. PELVIS: No mass. No free fluid. Normal bladder. ABDOMINAL WALL: No masses. No hernias. BONES: No significant or acute findings. OTHER: No other significant finding. IMPRESSION: Wall thickening, luminal narrowing and surrounding inflammation along the proximal duode num worrisome for duodenitis, or peptic disease. Ulcer may be present. TECHNICAL DOCUMENTATION: JOB ID: [id number] Quality ID # [id number]: Final reports with documentation of one or more dose reduction techniques (e.g., Au tomated exposure control, adjustment of the mA and/or kV according to patient size, use of iterative reconstruction technique) 2010 [employer]- All Rights Reserved
--- NOTE | 2017-10-01 15:21 | PDOC PROGRESS REPORT ---
Subjective Progress Note for:: 10/01/17 Physical Exam Vital Signs: Temp Pulse Resp BP Pulse Ox 97.5 F 69 16 100/60 100 10/01/17 11:47 10/01/17 11:47 10/01/17 11:47 10/01/17 13:00 10/01/17 11:47 Intake & Output 09/30/17 10/01/17 10/02/17 06:59 06:59 06:59 Intake Total 240 Output Total 0 Balance 240 Weight 71 kg Results Impressions: Abdomen Ultrasound 09/30/17 21:38 IMPRESSION: No acute findings. Minimal gallbladder sludge. Chest X-Ray 09/30/17 23:07 IMPRESSION: NO SIGNIFICANT RADIOGRAPHIC FINDING IN THE CHEST. Abdomen/Pelvis CT 10/01/17 12:30 IMPRESSION: Wall thickening, luminal narrowing and surrounding inflammation along the proximal duodenum worrisome for duodenitis, or peptic disease. Ulcer may be present. Assessment & Plan - Diagnosis (1) Abdominal pain Qualifiers: Abdominal location: epigastric Qualified Code(s): R10.13 - Epigastric pain Is this a current diagnosis for this admission?: Yes Plan: CT scan demonstrates inflammatory changes around the duodenum consistent with peptic ulcer disease. Will place the patient on Prevacid. Will plan EGD tomorrow.
[2017-10-01] MEDS: LANSOPRAZOLE 30 MG TAB.RAP.DR PO SCH (16:20)
[2017-10-02] MEDS: LANSOPRAZOLE 30 MG TAB.RAP.DR PO SCH ×2 (05:21→16:46)
[2017-10-02] MEDS ORDERED: GLYCOPYRROLATE INJ 0.4 MG/2 ML VIAL ONE (12:02)
[2017-10-02] MEDS ORDERED: NALOXONE HCL INJ/PF 0.4 MG/1 ML SDV ONE ×2 (12:02→18:50)
[2017-10-02] MEDS ORDERED: MIDAZOLAM 2 MG/2 ML INJ ONE (12:03)
[2017-10-02] MEDS ORDERED: FLUMAZENIL INJ 0.5 MG/5 ML VIAL ONE ×2 (12:03→18:51)
[2017-10-02] MEDS ORDERED: EPINEPHRINE INJ 1 MG/10 ML DISP.SYRIN ONE ×2 (12:04→18:51)
[2017-10-02] MEDS ORDERED: ONDANSETRON HCL INJ/PF 4 MG/2 ML SDV ONE ×2 (12:32→18:50)
[2017-10-02] MEDS: MIDAZOLAM 2 MG/2 ML INJ ONE ×7 (12:36→20:39)
[2017-10-02] MEDS: FENTANYL CITRATE INJ/PF 100 MCG/2 ML AMPUL ONE ×4 (12:38→20:34)
[2017-10-02 14:53] LABS: ABSOLUTE EOSINOPHILS # (AUTO) 0.1 10^3/uL (0.0-0.6); ABSOLUTE LYMPHOCYTES (AUTO) 1.4 10^3/uL (0.5-4.7); ABSOLUTE MONOCYTES (AUTO) 0.4 10^3/uL (0.1-1.4); ABSOLUTE NEUT (AUTO) 3.2 10^3/uL (1.7-8.2); BASOPHILS % (AUTO) 0.3 % (0-2); EOSINOPHILS % (AUTO) 1.5 % (0-6); HEMATOCRIT 35.6 % (36.0-47.0); HGB HCT DIFFERENCE 1.3; LYMPHOCYTES % (AUTO) 27.7 % (13-45); MEAN CORPUSCULAR HEMOGLOBIN 35.8 pg (27.0-33.4); MEAN CORPUSCULAR HGB CONC 34.6 g/dL (32.0-36.0); MEAN CORPUSCULAR VOLUME 104 fl (80-97); MONOCYTES % (AUTO) 8.4 % (3-13); RED BLOOD COUNT 3.44 10^6/uL (3.72-5.28); RED CELL DISTRIBUTION WIDTH 12.8 % (11.5-14.0); SEGMENTED NEUTROPHILS % (AUTO) 62.1 % (42-78); WHITE BLOOD COUNT 5.1 10^3/uL (4.0-10.5)
[2017-10-02 14:55] LABS: HEMOGLOBIN 12.3 g/dL (12.0-15.5)
--- NOTE | 2017-10-02 15:22 | OPERATIVE REPORT E ---
Operative Report NAME: AMBER DAMICO : 1980 AGE: 37Y DATE OF SURGERY: 10/02/2017 ROOM: 416 INDICATION: A 37-year-old female admitted with abdominal pain. Upper endoscopy was requested. Patient was seen by Dr. Mcconnell and patient underwent upper scope by myself. PREOPERATIVE DIAGNOSIS: Abdominal pain. POSTOPERATIVE DIAGNOSIS: Prepyloric gastric ulcer, chronic looking penetrating about 1 cm in size causing deformity in the duodenal bulb and prepyloric gastritis. PROCEDURES: 1. Esophagoscopy. 2. Gastroscopy. 3. Duodenoscopy. SURGEON: JV COPPOLA M.D. TISSUE REMOVED OR ALTERED: Gastric biopsy for H. pylori. ANESTHESIA: Versed 6, fentanyl 100. DESCRIPTION: Baby scope passed under guided vision, no difficulties. Esophagoscopy junction at 40. No varices. Gastroscopy: Prepyloric gastric ulcer with some deformity in the antrum and duodenal bulb. Descending duodenum was not visualized. CONCLUSION: Prepyloric gastric ulcer and gastritis. The gastric ulcer looks chronic H. pylori. Biopsy obtained. PLAN: Continue same medications. We will obtain a serology for H. pylori and will do a serum gastrin. Case to be discussed with the attending. DICTATING PHYSICIAN: JV COPPOLA M.D. [id number] [facility]#: [id number] ID: [id number] JOB#: [id number] ACCT: [id number] cc:NATALIO MCCONNELL M.D., MAHMOUD M.D. PRUITT, RUSSELL M.D. >
[2017-10-02] MEDS: MORPHINE SULFATE 10 MG/ML INJ IV PRN (16:44)
[2017-10-02] MEDS ORDERED: GLUCAGON,HUMAN RECOMB 1 MG INJ ONE (18:51)
--- NOTE | 2017-10-02 19:16 | PDOC PROGRESS REPORT ---
Subjective Progress Note for:: 10/02/17 Subjective:: Patient wide-awake and alert. Complained of a headache but otherwise okay. Physical Exam Vital Signs: Temp Pulse Resp BP Pulse Ox 98.1 F 81 14 101/60 99 10/02/17 11:40 10/02/17 13:15 10/02/17 13:15 10/02/17 13:15 10/02/17 13:15 Intake & Output 10/01/17 10/02/17 10/03/17 06:59 06:59 06:59 Intake Total 240 6484 400 Output Total 0 2400 650 Balance 240 4084 -250 Weight 71 kg 71 kg Results Laboratory Results: 10/02/17 14:31 10/02/17 10/02/17 14:31 14:31 WBC 5.1 RBC 3.44 L Hgb 12.3 D Hct 35.6 L MCV 104 H MCH 35.8 H MCHC 34.6 RDW 12.8 Plt Count 166 Seg Neutrophils % 62.1 Lymphocytes % 27.7 Monocytes % 8.4 Eosinophils % 1.5 Basophils % 0.3 Absolute Neutrophils 3.2 Absolute Lymphocytes 1.4 Absolute Monocytes 0.4 Absolute Eosinophils 0.1 Absolute Basophils 0.0 C-Reactive Protein < 5.0 Impressions: Abdomen Ultrasound 09/30/17 21:38 IMPRESSION: No acute findings. Minimal gallbladder sludge. Chest X-Ray 09/30/17 23:07 IMPRESSION: NO SIGNIFICANT RADIOGRAPHIC FINDING IN THE CHEST. Abdomen/Pelvis CT 10/01/17 12:30 IMPRESSION: Wall thickening, luminal narrowing and surrounding inflammation along the proximal duodenum worrisome for duodenitis, or peptic disease. Ulcer may be present. Assessment & Plan - Diagnosis (1) Abdominal pain Qualifiers: Abdominal location: epigastric Qualified Code(s): R10.13 - Epigastric pain Is this a current diagnosis for this admission?: Yes (2) Gastric ulcer Qualifiers: Gastric ulcer chronicity: unspecified ulcer chronicity Is this a current diagnosis for this admission?: Yes Plan: Patient underwent esophagogastroduodenoscopy today. She was noted with a gastric ulcer. Biopsy was taken for H. pylori but the ulcer periphery was not biopsied due to concerns about possibility of causing bleeding. The endoscopy was felt that the gastric ulcer did not appear malignant. I have had a long discussion with the patient concerning management options. One option is to treat her with proton pump inhibitor and H. pylori treatment and re-scope her in a few weeks to ensure that the ulcer has healed. The other option is to go ahead and re-scope today and do biopsies to exclude diagnosis of malignancy followed by repeat scope in a few weeks if the biopsies are negative to ensure healing of the ulcer. I have discussed both of these options with the patient and the patient's . I have discussed with him the risk and benefits. They understand and want to proceed with a upper endoscopy and biopsies now.
[2017-10-02] MEDS: DEXTROSE 5%-LACTATED RINGERS 1,000 ML IV PRN (20:08)
--- NOTE | 2017-10-02 21:02 | Operative Report ---
Operative Report DATE OF SURGERY: 10/02/17 PREOPERATIVE DIAGNOSIS: Gastric ulcer POSTOPERATIVE DIAGNOSIS: Prepyloric ulcer OPERATION: Esophagogastroduodenoscopy with multiple antral and pyloric channel biopsies. ANESTHESIA: Moderate Sedation TISSUE REMOVED OR ALTERED: Prepyloric region. COMPLICATIONS: None ESTIMATED BLOOD LOSS: 10 cc INTRAOPERATIVE FINDINGS: Narrowing at the prepyloric region with marked inflammatory changes with mucosal thickening and a prepyloric ulcer with narrowing of the pylorus. Normal-appearing duodenal bulb and first and second portion the duodenum. PROCEDURE: Informed consent was obtained. Patient was brought to the endoscopy suite. IV sedation with Versed and fentanyl was administered. Endoscope was passed via the patient's mouth patient's prepyloric region was markedly inflamed and narrowed with a ulcer in this region. There was quite a bit of spasm in this area making visualization difficult. The scope was able to be passed into the duodenum. The duodenum itself appeared normal as did the duodenal bulb. However the pylorus was narrowed and the prepyloric region was markedly inflamed with mucosal thickening with deep-seated ulcer with the base that was difficult to visualize. Multiple biopsies were taken of this region with attempts at biopsy of the periphery of the ulcer as well. We had difficulty in sedating the patient. We had to administer 8 mg of Versed and 150 micrograms of fentanyl to finally get her sedated enough to do the biopsies. Patient did have a small hiatal hernia. At the distal esophagus there were small projections of salmon colored mucosa but no ulcerations. With the difficulty with sedating the patient to do the prepyloric biopsies I did not attempt to do a distal esophageal biopsies. Remainder of the esophagus appeared normal. Patient was taken to the recovery area in stable condition. Will await biopsy results.
[2017-10-03] MEDS: MORPHINE SULFATE 10 MG/ML INJ IV PRN ×5 (01:27→23:05)
[2017-10-03] MEDS: DEXTROSE 5%-LACTATED RINGERS 1,000 ML IV PRN (03:21)
[2017-10-03] MEDS: LANSOPRAZOLE 30 MG TAB.RAP.DR PO SCH ×2 (05:09→16:25)
[2017-10-03] MEDS: CLARITHROMYCIN 500 MG TABLET PO SCH ×2 (09:37→21:34)
[2017-10-03] MEDS: AMOXICILLIN TRIHYDRATE 500 MG CAPSULE PO SCH ×2 (09:37→21:33)
[2017-10-03] MEDS ORDERED: AMPICILLIN TRIHYD 500 MG CAPSULE PO SCH (10:00)
[2017-10-03] MEDS ORDERED: SUMATRIPTAN SUCCINATE 50 MG TABLET PO PRN (10:04)
[2017-10-03] MEDS: ONDANSETRON HCL INJ/PF 4 MG/2 ML SDV IV PRN (10:57)
--- NOTE | 2017-10-03 12:43 | PDOC PROGRESS REPORT ---
Subjective Progress Note for:: 10/03/17 Subjective:: Abdominal pain Physical Exam Vital Signs: Temp Pulse Resp BP Pulse Ox 98.1 F 86 20 105/61 94 10/03/17 11:37 10/03/17 11:37 10/03/17 11:37 10/03/17 11:37 10/03/17 11:37 Pulse Oximeter Continuous Start: 10/02/17 22: 04 Freq: RTQ4 Status: Complete Document 10/03/17 08:00 [facility] (Rec: 10/03/17 08:53 [facility] [email or web address]) Pulse Oximetry Assessment Oxygen Saturation (92-100) 95 Oxygen Delivery Method Room Air Fraction of Inspired Oxygen (FIO2) 21 Equipment Usage Equipment Discontinued Continuous SpO2 Machine # 6 Intake & Output 10/02/17 10/03/17 10/04/17 06:59 06:59 06:59 Intake Total 6484 3420 Output Total 2400 1650 Balance 4084 1770 Weight 71 kg 72.4 kg Exam: Abdomen is soft with the tenderness at the epigastric area Results Laboratory Results: 10/02/17 14:31 10/02/17 10/02/17 14:31 14:31 WBC 5.1 RBC 3.44 L Hgb 12.3 D Hct 35.6 L MCV 104 H MCH 35.8 H MCHC 34.6 RDW 12.8 Plt Count 166 Seg Neutrophils % 62.1 Lymphocytes % 27.7 Monocytes % 8.4 Eosinophils % 1.5 Basophils % 0.3 Absolute Neutrophils 3.2 Absolute Lymphocytes 1.4 Absolute Monocytes 0.4 Absolute Eosinophils 0.1 Absolute Basophils 0.0 C-Reactive Protein < 5.0 Impressions: Abdomen Ultrasound 09/30/17 21:38 IMPRESSION: No acute findings. Minimal gallbladder sludge. Chest X-Ray 09/30/17 23:07 IMPRESSION: NO SIGNIFICANT RADIOGRAPHIC FINDING IN THE CHEST. Abdomen/Pelvis CT 10/01/17 12:30 IMPRESSION: Wall thickening, luminal narrowing and surrounding inflammation along the proximal duodenum worrisome for duodenitis, or peptic disease. Ulcer may be present. Assessment & Plan - Time Time Spent with patient: 15-24 minutes - Inpatient Certification Medical Necessity: Need For IV Fluids, Need for Pain Control, Need for IV Antibiotics - Plan Summary Plan Summary: #1 patient had a upper endoscopy yesterday with biopsy. I spoke with Dr. Mcconnell who feels that patient should take it easy with diet since the ulcer right at the prepyloric area with a very narrow opening. 2. Start with anti-H pylori therapy while awaiting biopsy results. Start with Protonix drip because patient still continuing to have severe abdominal pains. 3. Start with clear liquids and gradually increased to full liquid diet 4. Hopefully can be discharged in the next 24-48 hours.
[2017-10-03] MEDS: NORMAL SALINE 100 ML with PANTOPRAZOLE SODIUM 80 MG IV PRN ×4 (13:28→23:34)
[2017-10-03] MEDS ORDERED: SUCRALFATE SUSP 1 GM/10 ML UDCUP PO ONE (13:30)
[2017-10-03] MEDS: SUCRALFATE SUSP 1 GM/10 ML UDCUP PO SCH ×2 (16:25→21:34)
[2017-10-04] MEDS: LANSOPRAZOLE 30 MG TAB.RAP.DR PO SCH (05:51)
[2017-10-04] MEDS: SUCRALFATE SUSP 1 GM/10 ML UDCUP PO SCH ×2 (07:37→11:03)
[2017-10-04] MEDS: AMOXICILLIN TRIHYDRATE 500 MG CAPSULE PO SCH (09:33)
[2017-10-04] MEDS: CLARITHROMYCIN 500 MG TABLET PO SCH (09:33)
[2017-10-04] MEDS: MORPHINE SULFATE 10 MG/ML INJ IV PRN (09:33)
--- NOTE | 2017-10-04 11:58 | DISCHARGE SUMMARY E ---
Discharge Summary NAME: AMBER DAMICO : 1980 AGE: 37Y ADMITTED: 09/30/2017 DISCHARGED: 10/04/2017 FINAL DIAGNOSIS: Gastric ulcer with severe abdominal pains with nausea and vomiting. PROCEDURES: Upper endoscopy by Dr. Whitley and by Dr. Mcconnell. HOSPITAL COURSE: This is a 37-year-old female with chronic abdominal pains about a year with nausea and vomiting and weight loss about 100 pounds. She has sludge in her gallbladder by ultrasound, but a CAT scan showed inflammation around the area of the duodenum. An upper endoscopy done by Dr. Whitley showed large inflamed area of the gastric ulcer, the prepyloric area. This was repeated by Dr. Mcconnell who this time took a biopsy. The first biopsy apparently was not done, though biopsy for H. pylori was obtained initially. The patient was then treated with anti-ulcer regimen with Protonix and clarithromycin and amoxicillin. The patient is being treated as if positive for H. pylori. The patient's symptoms improved and pain is more tolerable with pain pills on 10/04/2017. The patient able to tolerate a soft diet. The pains also subsided and abdomen is soft and nontender. The patient discharged improved somewhat on anti-H. pylori regimen and antacid regimen. The patient to be followed in the surgical clinic care of Dr. Mcconnell in about 2 weeks. The patient will be informed if H. pylori biopsy is negative and, therefore, can stop her anti-H. pylori medications. Otherwise, continue all the medications and follow up in the clinic. DICTATING PHYSICIAN: HORACIO LEIVA M.D. [id number] PHY#: [id number] ID: [id number] JOB#: [id number] ACCT: [id number] cc:ROXANNA RUIZ M.D., FAUSTINO M.D. >
[2017-10-04 12:16] VITALS: BP 107/66
== END 2017-10-04 13:47 | disposition home or self-care (01) | DRG 384 ==
LOC: ER 19:47 → UNDOADMIN 23:30 → EH 23:30 → 4W 10-01 01:57
PROVIDERS: ADMIT Specialist; ATTEND Specialist
PROC: 0DB68ZX Excision of Stomach, Via Natural or Artificial Opening Endoscopic, Diagnostic (ICD-10-PCS; 2017-10-02)
PROC: 0DD78ZX Extraction of Stomach, Pylorus, Via Natural or Artificial Opening Endoscopic, Diagnostic (ICD-10-PCS; principal; 2017-10-02 12:00)
DX: K25.7 Chronic gastric ulcer without hemorrhage or perforation (principal); A04.8 Other specified bacterial intestinal infections; K44.9 Diaphragmatic hernia without obstruction or gangrene; K29.70 Gastritis, unspecified, without bleeding; K83.8 Other specified diseases of biliary tract; F17.210 Nicotine dependence, cigarettes, uncomplicated; E78.5 Hyperlipidemia, unspecified; R63.4 Abnormal weight loss; F32.9 Major depressive disorder, single episode, unspecified; I10 Essential (primary) hypertension; G43.909 Migraine, unspecified, not intractable, without status migrainosus; Z90.710 Acquired absence of both cervix and uterus
CPT/HCPCS: 36415; 43239; 71020; 74177; 76705; 80053; 81001; 82941; 83690; 84703; 85025; 86140; 88305; 88342; 94762; 96361; 96374; 96375; 99285; J0171; J1610; J1885; J2250; J2270; J2310; J2405; J2550; J3010; J3490; J7030; S0164

== ENCOUNTER 2017-11-18 16:13 | Emergency (ER) | payer SELFPAY ==
--- NOTE | 2017-11-18 17:09 | ER Document Report ---
ED Medical Screen (RME) - General Chief Complaint: Vomiting Stated Complaint: VOMITING Time Seen by Provider: 11/18/17 17:03 Notes: 37-year-old female past medical history gastric ulcer here with complaints of one episode of emesis with bright red blood and small blood clots. Patient states she has never had this in the past. She has epigastric abdominal pain but states that she has had this for the past few months and it is at her baseline pain level and is not of concern today. She denies any liver disease alcohol use. Denies history of esophageal varices but states that heartburn runs in the family. EXAM Clear to auscultation bilaterally Tachycardic low 110s-120s Minimal epigastric tenderness to palpation No peritoneal signs TRAVEL OUTSIDE OF THE [place] IN LAST 30 DAYS: No - Related Data Allergies/Adverse Reactions: No Known Allergies Allergy (Verified 11/18/17 16:14) Home Medications: Current Home Medications No Home Medications 11/18/17 [History] Past Medical History - Social History Frequency of alcohol use: Rare Drug Abuse: None - Past Medical History Cardiac Medical History: Reports: Hx Hypercholesterolemia, Hx Hypertension Neurological Medical History: Reports: Hx Migraine. Denies: Hx Seizures Renal/ Medical History: Denies: Hx Peritoneal Dialysis Psychiatric Medical History: Reports: Hx Depression Past Surgical History: Reports: Hx Section - X3, Hx Genitourinary Surgery - D&Cs. Denies: Hx Hysterectomy - Immunizations Hx Diphtheria, Pertussis, Tetanus Vaccination: Yes History of Influenza Vaccine for 08/2017 - 01/2018 Season: Refused Physical Exam - Vital signs Vitals: Temp Pulse Resp BP Pulse Ox 97.9 F 104 H 18 118/72 100 11/18/17 16:30 11/18/17 16:30 11/18/17 16:30 11/18/17 16:30 11/18/17 16:30 Course - Vital Signs Vital signs: Temp Pulse Resp BP Pulse Ox 97.9 F 104 H 18 118/72 100 11/18/17 16:30 11/18/17 16:30 11/18/17 16:30 11/18/17 16:30 11/18/17 16:30
[2017-11-18] MEDS ORDERED: NORMAL SALINE 1000 ML 1,000 ML IV ONE (17:10)
[2017-11-18] MEDS ORDERED: ONDANSETRON HCL INJ/PF 4 MG/2 ML SDV IV ONE (17:10)
[2017-11-18] MEDS ORDERED: PANTOPRAZOLE SODIUM 40 MG VIAL IV ONE (17:14)
[2017-11-18] MEDS ORDERED: FENTANYL CITRATE INJ/PF 100 MCG/2 ML AMPUL IV ONE (17:14)
[2017-11-18 17:42] LABS: ABSOLUTE EOSINOPHILS # (AUTO) 0.1 10^3/uL (0.0-0.6); ABSOLUTE LYMPHOCYTES (AUTO) 1.1 10^3/uL (0.5-4.7); ABSOLUTE MONOCYTES (AUTO) 0.7 10^3/uL (0.1-1.4); ABSOLUTE NEUT (AUTO) 7.1 10^3/uL (1.7-8.2); BASOPHILS % (AUTO) 0.3 % (0-2); EOSINOPHILS % (AUTO) 1.6 % (0-6); HEMATOCRIT 40.3 % (36.0-47.0); HEMOGLOBIN 13.5 g/dL (12.0-15.5); LYMPHOCYTES % (AUTO) 12.6 % (13-45); MEAN CORPUSCULAR HEMOGLOBIN 35.3 pg (27.0-33.4); MEAN CORPUSCULAR HGB CONC 33.6 g/dL (32.0-36.0); MEAN CORPUSCULAR VOLUME 105 fl (80-97); MONOCYTES % (AUTO) 7.8 % (3-13); PLATELET COUNT 277 10^3/uL (150-450); RED BLOOD COUNT 3.83 10^6/uL (3.72-5.28); RED CELL DISTRIBUTION WIDTH 14.5 % (11.5-14.0); SEGMENTED NEUTROPHILS % (AUTO) 77.7 % (42-78); TOTAL CELLS COUNTED % (AUTO) 100 %; WHITE BLOOD COUNT 9.1 10^3/uL (4.0-10.5)
[2017-11-18 17:55] LABS: ALANINE AMINOTRANSFERASE 19 U/L (9-52); ALBUMIN 4.2 g/dL (3.5-5.0); ALKALINE PHOSPHATASE 47 U/L (38-126); ANION GAP 15 (5-19); ASPARTATE AMINO TRANSFERASE 16 U/L (14-36); BILIRUBIN,DIRECT 0.5 mg/dL (0.0-0.4); BILIRUBIN,TOTAL 0.5 mg/dL (0.2-1.3); BLOOD UREA NITROGEN 24 mg/dL (7-20); CALCIUM 10.4 mg/dL (8.4-10.2); CARBON DIOXIDE 23 mmol/L (22-30); CHLORIDE 104 mmol/L (98-107); GLUCOSE 80 mg/dL (75-110); LIPASE 45.9 U/L (23-300); POTASSIUM 4.9 mmol/L (3.6-5.0); SODIUM 141.9 mmol/L (137-145); TOTAL PROTEIN 6.9 g/dL (6.3-8.2)
--- NOTE | 2017-11-18 17:56 | RADIOLOGY REPORT (SQ) ---
EXAM DESCRIPTION: CHEST PA/LAT COMPLETED DATE/TIME: 11/18/2017 5:34 pm REASON FOR STUDY: vomiting blood; eval boerhaave's COMPARISON: 09/30/2017 EXAM PARAMETERS: NUMBER OF VIEWS: two views TECHNIQUE: Digital Frontal and Lateral radiographic views of the chest acquired. RADIATION DOSE: NA LIMITATIONS: none FINDINGS: LUNGS AND PLEURA: No opacities, masses or pneumothorax. No pleural effusion. MEDIASTINUM AND HILAR STRUCTURES: No masses or contour abnormalities. HEART AND VASCULAR STRUCTURES: Heart normal size. No evidence for failure. BONES: No acute findings. HARDWARE: None in the chest. OTHER: No other significant finding. IMPRESSION: NO SIGNIFICANT RADIOGRAPHIC FINDING IN THE CHEST. TECHNICAL DOCUMENTATION: JOB ID: [id number] [email or web address]- All Rights Reserved
--- NOTE | 2017-11-18 17:58 | ER Document Report ---
ED GI/ - General Chief Complaint: Vomiting Stated Complaint: VOMITING Time Seen by Provider: 11/18/17 17:03 Notes: The patient is a 37-year-old female, past medical history gastric ulcer, cholecystectomy, presents with 1 day of diarrhea and epigastric pain. She had an episode of vomiting and noticed blood in her vomit. She had 2 EGDs performed a few months ago which showed gastric and duodenal ulcers. She was taking Carafate and said this was helping her pain, but it ran out. When she saw her surgeon, Dr. Mcconnell, she was taken off the Carafate. Patient denies lightheadedness, blood in stool, dark stool, back pain, urinary symptoms, fevers , abdominal distention or rash. TRAVEL OUTSIDE OF THE [place] IN LAST 30 DAYS: No - Related Data Allergies/Adverse Reactions: No Known Allergies Allergy (Verified 11/18/17 16:14) Past Medical History - General Information source: Patient - Social History Smoking Status: Current Every Day Smoker Frequency of alcohol use: Rare Drug Abuse: None Family History: Reviewed & Not Pertinent, Other Patient has suicidal ideation: No Patient has homicidal ideation: No - Past Medical History Cardiac Medical History: Reports: Hx Hypercholesterolemia, Hx Hypertension Neurological Medical History: Reports: Hx Migraine. Denies: Hx Seizures Renal/ Medical History: Denies: Hx Peritoneal Dialysis Psychiatric Medical History: Reports: Hx Depression Past Surgical History: Reports: Hx Section - X3, Hx Genitourinary Surgery - D&Cs. Denies: Hx Hysterectomy - Immunizations Hx Diphtheria, Pertussis, Tetanus Vaccination: Yes Review of Systems - Review of Systems Notes: REVIEW OF SYSTEMS: CONSTITUTIONAL: -fevers, -chills EENT: -eye pain, -difficulty swallowing, -nasal congestion CARDIOVASCULAR:-chest pain, -syncope. RESPIRATORY: -cough, -SOB GASTROINTESTINAL: +epigastric abdominal pain, +nausea, +vomiting, +diarrhea GENITOURINARY: -dysuria, -hematuria MUSCULOSKELETAL: -back pain, -neck pain SKIN: -rash or skin lesions. HEMATOLOGIC: -easy bruising or bleeding. LYMPHATIC: -swollen, enlarged glands. NEUROLOGICAL: -altered mental status or loss of consciousness, -headache, - neurologic symptoms PSYCHIATRIC: -anxiety, -depression. ALL OTHER SYSTEMS REVIEWED AND NEGATIVE. Physical Exam - Vital signs Vitals: Temp Pulse Resp BP Pulse Ox 97.9 F 104 H 18 118/72 100 11/18/17 16:30 11/18/17 16:30 11/18/17 16:30 11/18/17 16:30 11/18/17 16:30 - Notes Notes: PHYSICAL EXAMINATION: GENERAL: Well-appearing, well-nourished and in no acute distress. HEAD: Atraumatic, normocephalic. EYES: Pupils equal round and reactive to light, extraocular movements intact, sclera anicteric, conjunctiva are normal. ENT: nares patent, oropharynx clear without exudates. Moist mucous membranes. NECK: Normal range of motion, supple without lymphadenopathy LUNGS: Breath sounds clear to auscultation bilaterally and equal. No wheezes rales or rhonchi. HEART: Regular rate and rhythm without murmurs ABDOMEN: Soft, mild epigastric tenderness, normoactive bowel sounds. No guarding, no rebound. No masses appreciated. EXTREMITIES: Normal range of motion, no pitting or edema. No cyanosis. NEUROLOGICAL: Cranial nerves grossly intact. Normal speech, normal gait. Normal sensory and motor exams. PSYCH: Normal mood, normal affect. SKIN: Warm, Dry, normal turgor, no rashes or lesions noted. Course - Re-evaluation Re-evalutation: Patient appears well. Her initial tachycardia in triage resolved after IV fluids and pain control. Patient's hemoglobin is 13.5 and she is hemodynamically stable. Instructed patient to increase her Nexium from once a day to twice a day and will add Carafate. She will follow-up with her surgeon and GI doctor for further evaluation and treatment. Given very strict return precautions and she understands. - Vital Signs Vital signs: Temp Pulse Resp BP Pulse Ox 97.9 F 104 H 18 118/72 100 11/18/17 16:30 11/18/17 16:30 11/18/17 16:30 11/18/17 16:30 11/18/17 16:30 - Laboratory Result Diagrams: 11/18/17 17:25 11/18/17 17:25 Laboratory results interpreted by me: 11/18/17 11/18/17 17:25 17:25 MCV 105 H MCH 35.3 H RDW 14.5 H Lymphocytes % 12.6 L BUN 24 H Calcium 10.4 H Direct Bilirubin 0.5 H Discharge - Discharge Clinical Impression: Epigastric pain, Nausea vomiting and diarrhea Condition: Stable Disposition: HOME, SELF-CARE Additional Instructions: Gastritis You have an inflammation of the stomach called gastritis. This commonly causes upper abdominal pain, nausea, and vomiting. In severe cases, bleeding of the stomach lining can occur. Gastritis can be caused by bacteria or viruses , alcohol, or stomach-irritating drugs. Begin with sips of clear liquids. Take increasing amounts of fluid over the first 24 hours. Then start small amounts of bland foods (such as dry toast , applesauce, mashed potato). Gradually resume your usual diet. You should take antacids every two hours until the pain has subsided. Acid -suppressing drugs may be prescribed as well. Avoid aspirin, caffeine, tobacco , and alcohol. If the abdominal pain worsens, or there is evidence of major bleeding in the stomach (such as black, tarry stool, bloody or black vomit, or lightheadedness), you should return immediately. Call the doctor if you aren't improved in 24 to 36 hours. VOMITING: Vomiting (or nausea without vomiting) can be caused by many other different problems. It can mean that something's wrong with the stomach, such as ulcers or inflammation or the intestinal tract, such as appendicitis. But it can also be a symptom of a problem that has nothing to do with the stomach or intestines. Vomiting is common with severe headaches, earaches, tonsillitis, and kidney infections, etc. We see it with pneumonia or heart attacks. Drugs can cause nausea and vomiting. Many abdominal problems cause vomiting; for example, gallstones, kidney stones, pancreatitis, and intestinal obstruction ( blocked bowels). In most cases, curing the vomiting depends on fixing the problem that caused it. For temporary relief, we may use an anti-nausea medicine. For home use, we can prescribe suppositories, chewable pills, pills that dissolve in the mouth, or liquid anti-nausea drugs. If the vomiting seems to be caused by a problem in the stomach, acid-suppressing drugs may be prescribed as well. It's important to avoid dehydration. Sip small amounts of clear liquids ( soft drinks, tea, broth, etc) . Try to take fluids frequently even if you are vomiting to prevent dehydration. Take increasing amounts of fluid and when liquids are being consumed successfully, advance to small amounts of bland food (toast, soups, mashed potatoes, etc.) until you are able to resume a regular diet. Avoid aspirin, tobacco, and alcohol. If the vomiting worsens, if the problem that's making you vomit worsens, or if there's evidence of bleeding in the stomach (such as black, tarry stool, or bloody or black vomit), you should return immediately. Also, return if abdominal pain worsens or becomes localized to one area or you develop high fever. Call your doctor if you aren't improved in 24 hours. DIARRHEA, NON-SPECIFIC: Diarrhea means frequent, watery stools. There are many causes. Any problem that keeps the intestinal tract from absorbing water from the stool can lead to diarrhea. A sudden new diarrhea problem is usually caused by a virus, food sensitivity, toxic bacteria, or drugs. In this case, we expect the problem to go away soon. Testing is done only if you seem seriously ill from the diarrhea. If you have chronic diarrhea, or diarrhea that keeps coming back, we need to find out why. Chronic diarrhea can be due to inflammation of the bowels such as Crohn's disease or ulcerative colitis, food sensitivity such as intolerance to lactose or wheat protein, irritable bowel syndrome, and other problems. If your diarrhea is a significant problem but it's not clear why you have it, we' ll refer you to a specialist for further testing. During an episode of diarrhea, drink small amounts (two to six ounces) of clear liquids (soft drinks, sport drinks, herb teas, broth, etc). Take fluids frequently to prevent dehydration. It's usually not a problem to take mild anti- diarrhea medication such as Kaopectate or Pepto-Bismol. As the diarrhea eases, advance to small amounts of bland food (mashed potato, toast) for 24 hours. Call the physician if blood appears in your vomit or stool, if vomiting lasts longer than 24 hours, if the abdominal pain worsens or becomes localized to one area, if you develop high fever, or if you become lightheaded and weak. VIRAL SYNDROME: The physician has diagnosed a viral infection. Viruses not only cause "colds," but can cause many different symptoms including generalized aching, fever, headache, cough, diarrhea, nausea, vomiting, and fatigue. The treatment, for the most part, is simply relief of symptoms. This means that antibiotics are usually not given. Rest, fluids, pain medications and, occasionally, medication for the specific symptoms that are most bothersome will be prescribed. Use good handwashing to avoid passing the virus to others. Shared toys should be cleaned with disinfectant. Clean the toilets, sinks, and counter surfaces in bathrooms. Launder clothing in hot water. Contact the physician if you develop any new or unusual symptoms such as severe headache, stiff neck, high fever, chest pain, productive cough, or shortness of breath. You should be rechecked if you don't see marked improvement within seven to 10 days. INTRAVENOUS (I V) FLUIDS: As part of your care today, you received intravenous (IV) fluids. IV fluids are administered to patients who are dehydrated or to those who have certain chemical (electrolyte) abnormalities that need correcting. ANTINAUSEA MEDICATION: You have been given a medication to suppress nausea and vomiting. This type of medication can be given as a shot, pill, or suppository. It will usually last for many hours. Pills and shots usually last six to eight hours. For the typical illness, only one or two doses of the medication may be necessary. Mild lightheadedness may occur. This type of medicine can cause drowsiness. Do not drive or operate dangerous machinery while under its influence. Do not mix with alcohol. See your doctor at once if you have muscle spasms or tightness, or uncontrollable motions (particularly of the neck, mouth, or jaw). Persistent vomiting or severe lightheadedness should also be evaluated by the physician. FOLLOW-UP CARE: If you have been referred to a physician for follow-up care, call the physician s office for an appointment as you were instructed or within the next two days. If you experience worsening or a significant change in your symptoms, notify the physician immediately or return to the Emergency Department at any time for re-evaluation. Prescriptions: Ondansetron [Zofran Odt 4 mg Tablet] 1 - 2 tab PO Q4H PRN #15 tab.rapdis PRN Reason: For Nausea/Vomiting Sucralfate [Carafate 1 gm Tablet] 1 gm PO ACHS #30 tablet Referrals: KIEL BEGUM MD [ACTIVE STAFF] - Follow up as needed
[2017-11-18] MEDS ORDERED: SUCRALFATE 1 GM TABLET PO ONE (19:18)
[2017-11-18 19:23] VITALS: BP 121/71
== END 2017-11-18 19:45 | disposition home or self-care (01) ==
LOC: ER 16:13
DX: R10.13 Epigastric pain (principal); R11.2 Nausea with vomiting, unspecified; R19.7 Diarrhea, unspecified; R00.0 Tachycardia, unspecified; E78.00 Pure hypercholesterolemia, unspecified; I10 Essential (primary) hypertension; Z90.49 Acquired absence of other specified parts of digestive tract
CPT/HCPCS: 99284; 96361; 96374; 96375; 36415; 83690; 85025; 80053; 71020; J3010; S0164; J2405; J7030

== ENCOUNTER 2017-11-23 17:52 | Emergency (ER) | payer MEDICAID ==
[2017-11-23] MEDS ORDERED: ONDANSETRON HCL INJ/PF 4 MG/2 ML SDV IV ONE ×2 (18:49→21:46)
[2017-11-23] MEDS ORDERED: PANTOPRAZOLE SODIUM 40 MG VIAL IV ONE (18:50)
[2017-11-23] MEDS ORDERED: DEXTROSE 5%-LACTATED RINGERS 1,000 ML IV ONE (18:50)
--- NOTE | 2017-11-23 18:53 | ER Document Report ---
ED Medical Screen (RME) - General Chief Complaint: Nausea/Vomiting/Diarrhea Stated Complaint: DIARRHEA Time Seen by Provider: 11/23/17 18:43 Notes: 37-year-old female patient with nausea vomiting diarrhea abdominal pain. She has been here 5 times since 08/13/2017 with abdominal issues. On October 02, 2017 she is brought in with gallbladder disease, but ended up having EGD twice with biopsies of ulcers. She last came in here on 11/18/2017 with symptoms and felt like things got worse when her Carafate was stopped. They started her Carafate back and increase Nexium but it did not seem to help any. She states she has not really been able to eat since Thursday and has lost 5 pounds. I have greeted and performed a rapid initial assessment of this patient. A comprehensive ED assessment and evaluation of the patient, analysis of test results and completion of the medical decision making process will be conducted by additional ED providers. TRAVEL OUTSIDE OF THE [place] IN LAST 30 DAYS: No - Related Data Allergies/Adverse Reactions: No Known Allergies Allergy (Verified 11/23/17 18:33) Past Medical History - Social History Chew tobacco use (# tins/day): No Frequency of alcohol use: None Drug Abuse: None - Past Medical History Cardiac Medical History: Reports: Hx Hypercholesterolemia, Hx Hypertension Neurological Medical History: Reports: Hx Migraine. Denies: Hx Seizures Renal/ Medical History: Denies: Hx Peritoneal Dialysis Psychiatric Medical History: Reports: Hx Depression Past Surgical History: Reports: Hx Section - X3, Hx Genitourinary Surgery - D&Cs x 2, Hx Hysterectomy - Immunizations Hx Diphtheria, Pertussis, Tetanus Vaccination: Yes History of Influenza Vaccine for 08/2017 - 01/2018 Season: Refused Physical Exam - Vital signs Vitals: Temp Pulse Resp BP Pulse Ox 98.4 F 108 H 18 114/78 96 11/23/17 18:15 11/23/17 18:15 11/23/17 18:15 11/23/17 18:15 11/23/17 18:15 Course - Vital Signs Vital signs: Temp Pulse Resp BP Pulse Ox 98.4 F 108 H 18 114/78 96 11/23/17 18:15 11/23/17 18:15 11/23/17 18:15 11/23/17 18:15 11/23/17 18:15
[2017-11-23 19:25] LABS: APPEARANCE,URINE SLIGHTLY-CLOUDY; BILIRUBIN,URINE NEGATIVE (NEGATIVE); COLOR,URINE YELLOW; GLUCOSE, URINE NEGATIVE (NEGATIVE); KETONES,URINE 20 mg/dL (NEGATIVE); LEUKOCYTE ESTERASE,URINE NEGATIVE (NEGATIVE); NITRITE,URINE NEGATIVE (NEGATIVE); PROTEIN,URINE 30 mg/dL (NEGATIVE); URINE SPECIFIC GRAVITY 1.041; UROBILINOGEN,URINE NEGATIVE mg/dL (<2.0)
[2017-11-23 19:37] LABS: ABSOLUTE EOSINOPHILS # (AUTO) 0.1 10^3/uL (0.0-0.6); ABSOLUTE LYMPHOCYTES (AUTO) 1.9 10^3/uL (0.5-4.7); ABSOLUTE MONOCYTES (AUTO) 0.6 10^3/uL (0.1-1.4); ABSOLUTE NEUT (AUTO) 11.4 10^3/uL (1.7-8.2); BASOPHILS % (AUTO) 0.2 % (0-2); EOSINOPHILS % (AUTO) 0.5 % (0-6); HEMATOCRIT 42.1 % (36.0-47.0); HEMOGLOBIN 14.3 g/dL (12.0-15.5); LYMPHOCYTES % (AUTO) 13.4 % (13-45); MEAN CORPUSCULAR HEMOGLOBIN 35.3 pg (27.0-33.4); MEAN CORPUSCULAR VOLUME 104 fl (80-97); MONOCYTES % (AUTO) 4.4 % (3-13); PLATELET COUNT 554 10^3/uL (150-450); RED BLOOD COUNT 4.06 10^6/uL (3.72-5.28); RED CELL DISTRIBUTION WIDTH 14.4 % (11.5-14.0); SEGMENTED NEUTROPHILS % (AUTO) 81.5 % (42-78); TOTAL CELLS COUNTED % (AUTO) 100 %
[2017-11-23 20:42] LABS: ALANINE AMINOTRANSFERASE 21 U/L (9-52); ALKALINE PHOSPHATASE 32 U/L (38-126); ANION GAP 9 (5-19); ASPARTATE AMINO TRANSFERASE 9 U/L (14-36); BILIRUBIN,DIRECT 0.2 mg/dL (0.0-0.4); BILIRUBIN,TOTAL 0.2 mg/dL (0.2-1.3); BLOOD UREA NITROGEN 24 mg/dL (7-20); CALCIUM 9.2 mg/dL (8.4-10.2); CARBON DIOXIDE 20 mmol/L (22-30); CHLORIDE 107 mmol/L (98-107); GLUCOSE 286 mg/dL (75-110); POTASSIUM 4.2 mmol/L (3.6-5.0); SODIUM 135.6 mmol/L (137-145); TOTAL PROTEIN 5.4 g/dL (6.3-8.2)
[2017-11-23] MEDS ORDERED: MAG HYDROX/AL HYDROX/SIMETH SUSP 30 ML UDCUP PO ONE (21:47)
[2017-11-23] MEDS ORDERED: LIDOCAINE 2% VISCOUS SOLN 20 ML UDCUP PO ONE (21:47)
[2017-11-23] MEDS ORDERED: METOCLOPRAMIDE HCL ORAL SOLN 10 MG/10 ML UDCUP PO ONE (21:47)
[2017-11-23] MEDS ORDERED: MORPHINE SULFATE 10 MG/ML INJ IV ONE (21:47)
--- NOTE | 2017-11-23 22:42 | ER Document Report ---
ED General - General Chief Complaint: Nausea/Vomiting/Diarrhea Stated Complaint: DIARRHEA Time Seen by Provider: 11/23/17 18:43 TRAVEL OUTSIDE OF THE [place] IN LAST 30 DAYS: No - HPI Notes: Patient is a 37-year-old female with a history of gastric ulcer, cholecystectomy who presents to the ED for her fifth visit since July for the same epigastric pain. Pt states that she has had the same pain everyday since her last visit. Pt has associated n/v. Patient states that she was evaluated a couple weeks ago and was given Carafate and increase in her Nexium. patient was recently diagnosed with Gastric ulcers and had biopsies performed with an EGD a few months ago. Patient states that she has had a decreased p.o. intake over the last several days because of her epigastric pain. Patient still urinating normally and having normal bowel movements otherwise. Patient has not noticed any hematemesis, melena, or hematochezia. Denies any drug allergies. Denies any headache, fever, neck pain, changes in vision/speech/mentation/hearing, URI, sore throat, chest pain, palpitations, syncope, cough, shortness of breath, wheeze, dyspnea, diarrhea, urinary retention, dysuria, hematuria, loss of control of bowel or bladder, numbness/ tingling, muscle paralysis/weakness, or rash. - Related Data Allergies/Adverse Reactions: No Known Allergies Allergy (Verified 11/23/17 18:33) Past Medical History - Social History Smoking Status: Current Every Day Smoker Chew tobacco use (# tins/day): No Frequency of alcohol use: None Drug Abuse: None Family History: Reviewed & Not Pertinent, Other Patient has suicidal ideation: No Patient has homicidal ideation: No - Past Medical History Cardiac Medical History: Reports: Hx Hypercholesterolemia, Hx Hypertension Neurological Medical History: Reports: Hx Migraine. Denies: Hx Seizures Renal/ Medical History: Denies: Hx Peritoneal Dialysis Psychiatric Medical History: Reports: Hx Depression Past Surgical History: Reports: Hx Section - X3, Hx Genitourinary Surgery - D&Cs x 2, Hx Hysterectomy - Immunizations Hx Diphtheria, Pertussis, Tetanus Vaccination: Yes Review of Systems - Review of Systems Notes: REVIEW OF SYSTEMS: CONSTITUTIONAL : Denies fever, chills, or sweats. Denies recent illness. EENT: Denies eye, ear, throat, or mouth pain or symptoms. Denies nasal or sinus congestion or discharge. Denies throat, tongue, or mouth swelling or difficulty swallowing. CARDIOVASCULAR: Denies chest pain. Denies palpitations or racing or irregular heart beat. Denies ankle edema. RESPIRATORY: Denies cough, cold, or chest congestion. Denies shortness of breath, difficulty breathing, or wheezing. GASTROINTESTINAL: see hpi GENITOURINARY: Denies difficulty urinating, painful urination, burning, frequency, blood in urine, or discharge. MUSCULOSKELETAL: Denies back or neck pain or stiffness. Denies joint pain or swelling. SKIN: Denies rash, lesions or sores. NEUROLOGICAL: Denies confusion or altered mental status. Denies passing out or loss of consciousness. Denies dizziness or lightheadedness. Denies headache. Denies problems with gait or speech. Denies sensory loss, numbness, or tingling. Denies seizures. ALL OTHER SYSTEMS REVIEWED AND NEGATIVE. Dictation was performed using [employer] voice recognition software Physical Exam - Vital signs Vitals: Temp Pulse Resp BP Pulse Ox 98.4 F 108 H 18 114/78 96 11/23/17 18:15 11/23/17 18:15 11/23/17 18:15 11/23/17 18:15 11/23/17 18:15 Notes: PHYSICAL EXAMINATION: GENERAL: Well-appearing, well-nourished and in no acute distress. A&Ox4 HEAD: Atraumatic, normocephalic. EYES: Pupils equal round and reactive to light, extraocular movements intact, sclera anicteric, conjunctiva are normal. ENT: Nares patent and without discharge. oropharynx clear without exudates. No tonsilar hypertrophy or erythema. Moist mucous membranes. No sinus tenderness. NECK: Normal range of motion, supple without lymphadenopathy. No rigidity/ meningismus. LUNGS: Breath sounds clear to auscultation bilaterally and equal. No wheezes rales or rhonchi. HEART: Regular rate and rhythm without murmurs, rubs, gallops. ABDOMEN: Soft, nondistended abdomen. No guarding, no rebound. No masses appreciated. Normal bowel sounds present. No CVA tenderness bilaterally. + tenderness to the epigastrum. No lower abdominal tenderness. Musculoskeletal: FROM to passive/active. Strength 5+/5. Extremities: No cyanosis, clubbing, or edema b/l. Peripheral pulses 2+. Capillary refill less than 3 seconds. NEUROLOGICAL: Cranial nerves grossly intact. Normal speech, normal gait. Normal sensory, motor exams PSYCH: Normal mood, normal affect. SKIN: Warm, Dry, normal turgor, no rashes or lesions noted. Course - Re-evaluation Re-evalutation: 11/23/17 23:45 Patient is an afebrile, well-hydrated, 37-year-old female who presents to the ED with epigastric pain, chronic. Vitals are stable. PE is otherwise unremarkable. CBC, CMP, lipase, urinalysis, HCG, guaiac unremarkable for any acute pathology at this time. IV fluids given. Patient is tolerating p.o. x- ray was unremarkable for any acute pathology as well. GI cocktail was given which improved symptoms. Low suspicion/risk for acute appendicitis, bowel obstruction, acute cholecystitis, acute cholangitis, perforated diverticulitis, incarcerated hernia, pancreatitis, perforated ulcer, peritonitis, sepsis, pelvic inflammatory disease, ectopic , tubo-ovarian abscess, ovarian torsion, or other systemic emergent condition at this time. Patient is aware that her condition can change from initial presentation and she needs to monitor symptoms closely and seek medical attention if any acute changes. Conservative measures otherwise for symptoms. Recheck with your PCM in 3-5 days. Schedule an appointment/keep your appointment with GI. Return to the ED with any worsening/concerning symptoms otherwise as reviewed in discharge. Patient is in agreement. - Vital Signs Vital signs: Temp Pulse Resp BP Pulse Ox 98.4 F 108 H 18 114/78 96 11/23/17 18:15 11/23/17 18:15 11/23/17 18:15 11/23/17 18:15 11/23/17 18:15 - Laboratory Result Diagrams: 11/23/17 19:13 11/23/17 20:10 Laboratory results interpreted by me: 11/23/17 11/23/17 11/23/17 18:58 19:13 20:10 WBC 14.0 H MCV 104 H MCH 35.3 H RDW 14.4 H Plt Count 554 H Seg Neutrophils % 81.5 H Absolute Neutrophils 11.4 H Sodium 135.6 L Carbon Dioxide 20 L BUN 24 H Glucose 286 H AST 9 L Alkaline Phosphatase 32 L Total Protein 5.4 L Albumin 3.0 L Urine Protein 30 H Urine Ketones 20 H Discharge - Discharge Clinical Impression: Epigastric pain Condition: Stable Disposition: HOME, SELF-CARE Instructions: Antinausea Medication ([facility]), Evaluation of Upper Abdominal Pain ( [facility]) Additional Instructions: Maintain adequate fluid and food intake [place] diet ([employer] Bananas, rice, apples, toast, etc Avoid spices, caffeine, smoking, acidic foods/liquids, eating late at night; try to elevate head of bed when sleeping Zofran as needed tylenol if needed Take your Nexium and Carafate as directed Monitor for any worsening symptoms Make sure you are staying hydrated enough to urinate and have normal BM's Recheck with your PCM in 3-5 days Call Gastroenterology tomorrow to schedule an appointment if you have not yet done so* Return to the ED with any worsening symptoms and/or development of fever, headache, chest pain, palpitations, syncope, shortness of breath, trouble breathing, abdominal pain, n/v/d, blood in stool/urine, weakness, or other worsening symptoms that are concerning to you. Prescriptions: Promethazine HCl [Phenergan 25 mg Supp.rect] 1 supp TN Q6H #15 supp.rect Forms: Smoking Cessation Education Referrals: PRADIP MARTINEZ MD [ACTIVE STAFF] - Follow up as needed KIEL BEGUM MD [ACTIVE STAFF] - Follow up as needed
--- NOTE | 2017-11-23 22:46 | RADIOLOGY REPORT (SQ) ---
EXAM DESCRIPTION: CHEST PA/LAT COMPLETED DATE/TIME: 11/23/2017 10:33 pm REASON FOR STUDY: epigastric pain COMPARISON: 11/18/2017. TECHNIQUE: Frontal and lateral radiographic views of the chest acquired. NUMBER OF VIEWS: Two view. LIMITATIONS: None. FINDINGS: LUNGS AND PLEURA: No opacities, masses or pneumothorax. No pleural effusion. MEDIASTINUM AND HILAR STRUCTURES: No masses or contour abnormalities. HEART AND VASCULAR STRUCTURES: Heart normal size. No evidence for failure. BONES: No acute findings. HARDWARE: None in the chest. OTHER: No other significant finding. IMPRESSION: NO SIGNIFICANT RADIOGRAPHIC FINDING IN THE CHEST. TECHNICAL DOCUMENTATION: JOB ID: [id number] [employer]- All Rights Reserved
[2017-11-23] MEDS ORDERED: NORMAL SALINE 1000 ML 1,000 ML IV ONE (22:53)
[2017-11-24 00:18] VITALS: BP 116/65
== END 2017-11-24 00:21 | disposition home or self-care (01) ==
LOC: ER 17:52
DX: K25.9 Gastric ulcer, unspecified as acute or chronic, without hemorrhage or perforation (principal); Z79.899 Other long term (current) drug therapy; R10.13 Epigastric pain; G89.29 Other chronic pain; R11.2 Nausea with vomiting, unspecified; F17.200 Nicotine dependence, unspecified, uncomplicated; Z90.49 Acquired absence of other specified parts of digestive tract; Z98.890 Other specified postprocedural states; I10 Essential (primary) hypertension
CPT/HCPCS: 96376; 99284; 96361; 96374; 96375; 36415; 83690; 85025; 82272; 81025; 80053; 81001; 71046; J3490 ×3; J2270; S0164; J2405; J7030

== ENCOUNTER 2017-11-28 10:31 | Emergency (ER) | payer MEDICAID ==
[2017-11-28] MEDS ORDERED: METOCLOPRAMIDE HCL ORAL SOLN 10 MG/10 ML UDCUP PO ONE (10:36)
[2017-11-28] MEDS ORDERED: MAG HYDROX/AL HYDROX/SIMETH SUSP 30 ML UDCUP PO ONE (10:36)
[2017-11-28] MEDS ORDERED: LIDOCAINE 2% VISCOUS SOLN 20 ML UDCUP PO ONE (10:36)
[2017-11-28] MEDS ORDERED: MORPHINE SULFATE 10 MG/ML INJ IV ONE (11:06)
[2017-11-28] MEDS ORDERED: NORMAL SALINE 1000 ML 1,000 ML IV ONE ×2 (11:06→12:35)
[2017-11-28] MEDS ORDERED: METOCLOPRAMIDE HCL INJ/PF 10 MG/2 ML SDV IV ONE (11:06)
[2017-11-28 11:48] LABS: APPEARANCE,URINE CLEAR; BILIRUBIN,URINE NEGATIVE (NEGATIVE); COLOR,URINE YELLOW; GLUCOSE, URINE NEGATIVE (NEGATIVE); KETONES,URINE TRACE mg/dL (NEGATIVE); LEUKOCYTE ESTERASE,URINE NEGATIVE (NEGATIVE); NITRITE,URINE NEGATIVE (NEGATIVE); PROTEIN,URINE 30 mg/dL (NEGATIVE); URINE SPECIFIC GRAVITY 1.047; UROBILINOGEN,URINE NEGATIVE mg/dL (<2.0)
--- NOTE | 2017-11-28 11:51 | ER Document Report ---
ED GI/ - General Chief Complaint: Abdominal Pain Stated Complaint: ABDOMINAL PAIN Time Seen by Provider: 11/28/17 10:36 Mode of Arrival: Medic Information source: Patient Notes: Patient is a 37-year-old female with a history of peptic ulcer disease who presents to the ER today for upper abdominal pain. Patient states that she does not have insurance that she has not been able to see a lapping machine tender or any other doctor for quite some time. Patient states that she takes Carafate and Nexium at home but she "cannot keep anything down because of the pain." She states that she has been trying to drink and eat but that she vomits right afterwards for many weeks now. Patient was found by EMS doubled over her toilet trying to throw up after being called to the house. She denies any diarrhea, last normal bowel movement was yesterday. TRAVEL OUTSIDE OF THE [place] IN LAST 30 DAYS: No - Related Data Allergies/Adverse Reactions: No Known Allergies Allergy (Verified 11/23/17 18:33) Past Medical History - General Information source: Patient - Social History Smoking Status: Current Every Day Smoker Frequency of alcohol use: None Drug Abuse: None Family History: Reviewed & Not Pertinent, Other Patient has suicidal ideation: No Patient has homicidal ideation: No - Past Medical History Cardiac Medical History: Reports: Hx Hypercholesterolemia, Hx Hypertension Neurological Medical History: Reports: Hx Migraine. Denies: Hx Seizures Renal/ Medical History: Denies: Hx Peritoneal Dialysis Psychiatric Medical History: Reports: Hx Depression Past Surgical History: Reports: Hx Section - X3, Hx Genitourinary Surgery - D&Cs x 2, Hx Hysterectomy - Immunizations Hx Diphtheria, Pertussis, Tetanus Vaccination: Yes Review of Systems - Review of Systems Constitutional: No symptoms reported EENT: No symptoms reported Cardiovascular: No symptoms reported Respiratory: No symptoms reported Gastrointestinal: See HPI Genitourinary: No symptoms reported Female Genitourinary: No symptoms reported Musculoskeletal: No symptoms reported Skin: No symptoms reported Hematologic/Lymphatic: No symptoms reported Neurological/Psychological: No symptoms reported Physical Exam - Vital signs Vitals: Temp Pulse Resp BP Pulse Ox 97.5 F 94 22 H 137/76 H 100 11/28/17 10:34 11/28/17 10:34 11/28/17 10:34 11/28/17 10:34 11/28/17 10:34 - Notes Notes: PHYSICAL EXAMINATION: GENERAL: Holding emesis bag, but in no acute distress. HEAD: Atraumatic, normocephalic. EYES: Pupils equal round and reactive to light, extraocular movements intact, sclera anicteric, conjunctiva are normal. ENT: Moist mucous membranes. NECK: Normal range of motion, supple without lymphadenopathy LUNGS: CTAB and equal. No wheezes rales or rhonchi. HEART: Regular rate and rhythm without murmurs ABDOMEN: Soft, epigastric, right upper quadrant tenderness. No guarding, no rebound BACK: no vertebral tenderness, normal ROM GI/: no CVA tenderness EXTREMITIES: Normal range of motion, no pitting edema. No cyanosis. NEUROLOGICAL: Cranial nerves grossly intact. Normal sensory/motor exams. PSYCH: Normal mood, normal affect. SKIN: Warm, Dry, normal turgor, no rashes or lesions noted Course - Re-evaluation Re-evalutation: 11/29/17 08:31 Lab work is unremarkable today except for specific gravity 1.047 on urinalysis. Patient has not vomited after being given Reglan here and has held down water and saltine crackers. At this time I will discharge her home with Carafate and Zantac, advising her to follow up with lapping machine tender. Right upper quadrant ultrasound was negative for any acute pathology. - Vital Signs Vital signs: Temp Pulse Resp BP Pulse Ox 98.4 F 99 18 125/68 100 11/28/17 15:43 11/28/17 15:43 11/28/17 15:43 11/28/17 15:43 11/28/17 15:43 - Laboratory Result Diagrams: 11/28/17 12:00 11/28/17 12:00 Laboratory results interpreted by me: 11/28/17 11/28/17 11/28/17 11:28 12:00 12:00 MCV 103 H MCH 34.9 H RDW 14.3 H Plt Count 563 H Carbon Dioxide 17 L BUN 21 H AST 10 L Urine Protein 30 H Urine Ketones TRACE H Discharge - Discharge Clinical Impression: Gastric ulcer Qualifiers: Gastric ulcer chronicity: acute Gastric ulcer complication status: without hemorrhage or perforation Qualified Code(s): K25.3 - Acute gastric ulcer without hemorrhage or perforation Abdominal pain Qualifiers: Abdominal location: upper abdomen, unspecified Qualified Code(s): R10.10 - Upper abdominal pain, unspecified Condition: Stable Disposition: HOME, SELF-CARE Instructions: Gastritis ([facility]) Additional Instructions: Return immediately for any new or worsening symptoms. Follow up with primary care provider, call tomorrow to make followup appointment. Prescriptions: Metoclopramide HCl [Reglan 10 mg Tablet] 10 mg PO TID PRN #30 tablet PRN Reason: Ranitidine HCl [Zantac 150 mg Tablet] 150 mg PO BID #40 tablet Sucralfate [Carafate 1 gm Tablet] 1 gm PO ACHS #40 tablet Forms: Return to Work Referrals: KIEL BEGUM MD [ACTIVE STAFF] - Follow up as needed
--- NOTE | 2017-11-28 12:07 | RADIOLOGY REPORT (SQ) ---
EXAM DESCRIPTION: U/S ABDOMEN LIMITED W/O DOP COMPLETED DATE/TIME: 11/28/2017 11:57 am REASON FOR STUDY: ruq pain, n/v COMPARISON: 09/30/2017 TECHNIQUE: Dynamic and static grayscale images acquired of the abdomen and recorded on PACS. Lyno amy selected color Doppler and spectral images recorded. LIMITATIONS: None. FINDINGS: PANCREAS: No masses. Visualized pancreatic duct normal caliber. LIVER: No masses. Echotexture normal. LIVER VASCULATURE: Normal directional flow of the main portal vein and hepatic veins. GALLBLADDER: No stones. Normal wall thickness. No pericholecystic fluid. ULTRASOUND-DETECTED SMITH'S SIGN: Negative. INTRAHEPATIC DUCTS AND COMMON DUCT: CBD and intrahepatic ducts normal caliber. No filling defects. INFERIOR VENA CAVA: Normal flow. AORTA: No aneurysm. RIGHT KIDNEY: Normal size. Normal echogenicity. No solid or suspicious masses. No hydronephrosis. No calcifications. PERITONEAL AND RIGHT PLEURAL SPACE: No ascites or effusions. OTHER: No other significant findings. IMPRESSION: NORMAL RIGHT UPPER QUADRANT ULTRASOUND. TECHNICAL DOCUMENTATION: JOB ID: [id number] [employer]- All Rights Reserved
[2017-11-28 12:15] LABS: ABSOLUTE LYMPHOCYTES (AUTO) 2.4 10^3/uL (0.5-4.7); ABSOLUTE MONOCYTES (AUTO) 0.5 10^3/uL (0.1-1.4); ABSOLUTE NEUT (AUTO) 6.9 10^3/uL (1.7-8.2); BASOPHILS % (AUTO) 0.4 % (0-2); EOSINOPHILS % (AUTO) 0.3 % (0-6); HEMOGLOBIN 13.3 g/dL (12.0-15.5); LYMPHOCYTES % (AUTO) 24.3 % (13-45); MEAN CORPUSCULAR HEMOGLOBIN 34.9 pg (27.0-33.4); MEAN CORPUSCULAR VOLUME 103 fl (80-97); MONOCYTES % (AUTO) 4.7 % (3-13); PLATELET COUNT 563 10^3/uL (150-450); RED BLOOD COUNT 3.79 10^6/uL (3.72-5.28); RED CELL DISTRIBUTION WIDTH 14.3 % (11.5-14.0); SEGMENTED NEUTROPHILS % (AUTO) 70.3 % (42-78); TOTAL CELLS COUNTED % (AUTO) 100 %; WHITE BLOOD COUNT 9.9 10^3/uL (4.0-10.5)
[2017-11-28 12:32] LABS: ALANINE AMINOTRANSFERASE 12 U/L (9-52); ALBUMIN 4.3 g/dL (3.5-5.0); ALKALINE PHOSPHATASE 44 U/L (38-126); ANION GAP 17 (5-19); ASPARTATE AMINO TRANSFERASE 10 U/L (14-36); BILIRUBIN,DIRECT 0.2 mg/dL (0.0-0.4); BILIRUBIN,TOTAL 0.2 mg/dL (0.2-1.3); BLOOD UREA NITROGEN 21 mg/dL (7-20); CALCIUM 10.1 mg/dL (8.4-10.2); CARBON DIOXIDE 17 mmol/L (22-30); CHLORIDE 106 mmol/L (98-107); GLUCOSE 88 mg/dL (75-110); POTASSIUM 3.8 mmol/L (3.6-5.0); SODIUM 139.7 mmol/L (137-145); TOTAL PROTEIN 7.1 g/dL (6.3-8.2)
[2017-11-28] MEDS ORDERED: HYDROCODONE/ACETAMINOPHEN 5-325 MG (6 TAB/ER DISP) PO PRN (14:53)
[2017-11-28] MEDS ORDERED: OXYCODONE-ACETAMINOPHEN 5-325 MG TABLET PO ONE (14:53)
[2017-11-28 15:44] VITALS: BP 125/68
== END 2017-11-28 15:43 | disposition home or self-care (01) ==
LOC: ER 10:31
DX: K25.3 Acute gastric ulcer without hemorrhage or perforation (principal); R10.10 Upper abdominal pain, unspecified; Z79.899 Other long term (current) drug therapy; F17.200 Nicotine dependence, unspecified, uncomplicated
CPT/HCPCS: 99284; 96361; 96374; 96375; 36415; 83690; 85025; 81025; 80053; 81001; 76705; J3490 ×3; J2765; J2270; J7030

== ENCOUNTER 2018-01-29 08:06 | Emergency (ER) | payer MEDICAID ==
[2018-01-29] MEDS ORDERED: ONDANSETRON HCL INJ/PF 4 MG/2 ML SDV IV ONE (08:55)
[2018-01-29] MEDS ORDERED: NORMAL SALINE 1000 ML 1,000 ML IV ONE ×2 (08:55→10:44)
[2018-01-29 09:12] LABS: ABSOLUTE EOSINOPHILS # (AUTO) 0.1 10^3/uL (0.0-0.6); ABSOLUTE MONOCYTES (AUTO) 0.5 10^3/uL (0.1-1.4); ABSOLUTE NEUT (AUTO) 3.1 10^3/uL (1.7-8.2); BASOPHILS % (AUTO) 0.5 % (0-2); EOSINOPHILS % (AUTO) 1.2 % (0-6); HEMATOCRIT 40.9 % (36.0-47.0); HEMOGLOBIN 13.8 g/dL (12.0-15.5); LYMPHOCYTES % (AUTO) 34.8 % (13-45); MEAN CORPUSCULAR HEMOGLOBIN 32.7 pg (27.0-33.4); MEAN CORPUSCULAR HGB CONC 33.6 g/dL (32.0-36.0); MEAN CORPUSCULAR VOLUME 97 fl (80-97); MONOCYTES % (AUTO) 9.5 % (3-13); PLATELET COUNT 319 10^3/uL (150-450); RED BLOOD COUNT 4.21 10^6/uL (3.72-5.28); RED CELL DISTRIBUTION WIDTH 15.5 % (11.5-14.0); TOTAL CELLS COUNTED % (AUTO) 100 %; WHITE BLOOD COUNT 5.8 10^3/uL (4.0-10.5)
[2018-01-29 09:22] LABS: APPEARANCE,URINE CLEAR; BILIRUBIN,URINE NEGATIVE (NEGATIVE); COLOR,URINE YELLOW; GLUCOSE, URINE NEGATIVE (NEGATIVE); KETONES,URINE NEGATIVE (NEGATIVE); LEUKOCYTE ESTERASE,URINE NEGATIVE (NEGATIVE); NITRITE,URINE NEGATIVE (NEGATIVE); PROTEIN,URINE NEGATIVE (NEGATIVE); URINE SPECIFIC GRAVITY 1.056; UROBILINOGEN,URINE NEGATIVE mg/dL (<2.0)
[2018-01-29 11:03] LABS: PROTHROMBIN TIME 12.8 SEC (11.4-15.4)
[2018-01-29 11:04] LABS: PARTIAL THROMBOPLASTIN TIME 27.6 SEC (23.5-35.8)
[2018-01-29 11:17] LABS: ALANINE AMINOTRANSFERASE 21 U/L (9-52); ALBUMIN 4.3 g/dL (3.5-5.0); ALKALINE PHOSPHATASE 39 U/L (38-126); ANION GAP 14 (5-19); ASPARTATE AMINO TRANSFERASE 10 U/L (14-36); BILIRUBIN,DIRECT 0.2 mg/dL (0.0-0.4); BILIRUBIN,TOTAL 0.2 mg/dL (0.2-1.3); BLOOD UREA NITROGEN 15 mg/dL (7-20); CALCIUM 9.2 mg/dL (8.4-10.2); CARBON DIOXIDE 16 mmol/L (22-30); CHLORIDE 108 mmol/L (98-107); GLUCOSE 81 mg/dL (75-110); LIPASE 89.1 U/L (23-300); POTASSIUM 4.2 mmol/L (3.6-5.0); SODIUM 137.9 mmol/L (137-145); TOTAL PROTEIN 6.8 g/dL (6.3-8.2)
--- NOTE | 2018-01-29 13:26 | ER Document Report ---
ED General - General Chief Complaint: Nausea/Vomiting Stated Complaint: ABDOMINAL PAIN Time Seen by Provider: 01/29/18 08:49 Mode of Arrival: Ambulatory Information source: Patient TRAVEL OUTSIDE OF THE [place] IN LAST 30 DAYS: No - HPI Notes: 37-year-old female with a history of gastric ulcers presents today today with complaints of nausea vomiting that has become progressively worse over the last 3 days. Reports she vomited this morning, vomited yesterday, twice a day before that and has been doing this pattern for the last 2 weeks. Patient is seen by Dr. German Martínez, consultant nurse, who has attempted to do an endoscopy on her but she was unable to complete due to having vomiting issues. Patient has a history of precancerous cells that was seen when she had an endoscopy done last year. Recent traumas. Denies new medications, travel or food. Ports she recently has lost 100 pounds over the last year, patient has been seen multiple times by this emergency room as well as consultant nurse this weight loss has been evaluated. denies fevers, chills, chest pain, palpitations, shortness of breath, dyspnea, , diarrhea, hematuria,blurred vision, double vision, loss of vision, speech changes, LH, dizziness, syncope, headaches, wheezing, ST, URI, neck pain, weakness, bowel or bladder dysfunction , saddle anesthesia, numbness or tingling in bilateral upper or lower extremities equally, muscle paralysis, weakness in bilateral upper or lower extremities equally or rash. Denies IV drug use. - Related Data Allergies/Adverse Reactions: No Known Allergies Allergy (Verified 01/29/18 08:07) Past Medical History - General Information source: Patient - Social History Smoking Status: Current Every Day Smoker Chew tobacco use (# tins/day): No Frequency of alcohol use: None Drug Abuse: None Family History: Reviewed & Not Pertinent, Other Patient has suicidal ideation: No Patient has homicidal ideation: No - Past Medical History Cardiac Medical History: Reports: Hx Hypercholesterolemia, Hx Hypertension Neurological Medical History: Reports: Hx Migraine. Denies: Hx Seizures Renal/ Medical History: Denies: Hx Peritoneal Dialysis Psychiatric Medical History: Reports: Hx Depression Past Surgical History: Reports: Hx Section - X3, Hx Genitourinary Surgery - D&Cs x 2, Hx Hysterectomy - Immunizations Hx Diphtheria, Pertussis, Tetanus Vaccination: Yes Review of Systems - Review of Systems Notes: REVIEW OF SYSTEMS: CONSTITUTIONAL : Denies fever, chills, or sweats. Denies recent illness. EENT: Denies eye, ear, throat, or mouth pain or symptoms. Denies nasal or sinus congestion or discharge. Denies throat, tongue, or mouth swelling or difficulty swallowing. CARDIOVASCULAR: Denies chest pain. Denies palpitations or racing or irregular heart beat. Denies ankle edema. RESPIRATORY: Denies cough, cold, or chest congestion. Denies shortness of breath, difficulty breathing, or wheezing. GASTROINTESTINAL: + nausea and epigastric, RUQ and LUQ abd pain. Denies distention. Denies nausea, vomiting, or diarrhea. Denies blood in vomitus, stools, or per rectum. Denies black, tarry stools. Denies constipation. GENITOURINARY: Denies difficulty urinating, painful urination, burning, frequency, blood in urine, or discharge. FEMALE GENITOURINARY: Denies vaginal bleeding, heavy or abnormal periods, irregular periods. Denies vaginal discharge or odor. MUSCULOSKELETAL: Denies back or neck pain or stiffness. Denies joint pain or swelling. SKIN: Denies rash, lesions or sores. HEMATOLOGIC : Denies easy bruising or bleeding. LYMPHATIC: Denies swollen, enlarged glands. NEUROLOGICAL: Denies confusion or altered mental status. Denies passing out or loss of consciousness. Denies dizziness or lightheadedness. Denies headache. Denies weakness or paralysis or loss of use of either side. Denies problems with gait or speech. Denies sensory loss, numbness, or tingling. Denies seizures. PSYCHIATRIC: Denies anxiety or stress. Denies depression, suicidal ideation, or homicidal ideation. ALL OTHER SYSTEMS REVIEWED AND NEGATIVE. PHYSICAL EXAMINATION: GENERAL: Well-appearing, well-nourished and in no acute distress. HEAD: Atraumatic, normocephalic. EYES: Pupils equal round and reactive to light, extraocular movements intact, conjunctiva are normal. ENT: Nares patent, oropharynx clear without exudates. Moist mucous membranes. NECK: Normal range of motion, supple without lymphadenopathy LUNGS: Breath sounds clear to auscultation bilaterally and equal. No wheezes rales or rhonchi. HEART: Regular rate and rhythm without murmurs ABDOMEN: Soft,nondistended abdomen. RUQ epigastric and left upper quadrant pain on palpation. no guarding, no rebound. No masses appreciated. CVA tenderness bilaterally Female : deferred Musculoskeletal: Normal range of motion, no pitting or edema. No cyanosis. NEUROLOGICAL: Cranial nerves grossly intact. Normal speech, normal gait. Normal sensory, motor exams PSYCH: Normal mood, normal affect. SKIN: Warm, Dry, normal turgor, no rashes or lesions noted. Dictation was performed using [employer] voice recognition software Physical Exam - Vital signs Vitals: Temp Pulse Resp BP Pulse Ox 98.8 F 102 H 18 119/83 99 01/29/18 08:12 01/29/18 08:12 01/29/18 08:12 01/29/18 08:12 01/29/18 08:12 Course - Re-evaluation Re-evalutation: 01/29/18 14:25 On reevaluation, patient did feel better, no vomiting during duration of stay emergency room. CT abdomen pelvis with IV and oral contrast did show some inflammation around gastric lining, no bowel obstruction or other concerning etiologies seen on CT. CBC negative for leukocytosis or anemia. CMP negative for renal or liver dysfunction. Electrolytes within normal range. Urinalysis negative for any proteinuria, TIA. No hematuria noted. Consulted with Dr. German Martínez MD, at 1430, regarding pertinent laboratory diagnostic examinations as well as clinical examination patient, he advised to have patient continue taking PPI, will start her on oral Zofran for the next 3 days to help with nausea. Patient states that Zofran works for her, she said she never filled her Phenergan rectal suppository, stated she would like to try that instead of oral Zofran. He plans on reevaluating her 1-2 weeks with a endoscope, but advised her to call during week to be seen sooner. All questions and concerns answered by this provider. Advised patient if symptoms become worse return to the emergency room immediately for but if not limited to fevers, chills, chest pain,palpitations, shortness of breath, dyspnea, worsening: nausea, vomiting, diarrhea, abdominal pain, as well as hematuria, blurred vision, double vision, loss of vision, speech changes, LH, dizziness, syncope, headaches, wheezing, ST, URI, neck pain, weakness, bowel or bladder dysfunction, saddle anesthesia, numbness or tingling in bilateral upper or lower extremities equally, muscle paralysis, weakness in bilateral upper or lower extremities equally or rash. Patient verbalized understanding of plan of care and agree with plan of care. Patient was discharged home. After performing a Medical Screening Examination, I estimate there is LOW risk for ACUTE APPENDICITIS, BOWEL OBSTRUCTION, ACUTE CHOLECYSTITIS, PERFORATED DIVERTICULITIS, INCARCERATED HERNIA, PANCREATITIS, PELVIC INFLAMMATORY DISEASE, PERFORATED ULCER, ECTOPIC , or TUBO-OVARIAN ABSCESS, thus I consider the discharge disposition reasonable. Also, there is no evidence or peritonitis , sepsis, or toxicity. I have reevaluated this patient multiple times and no significant life threatening changes are noted. The patient and I have discussed the diagnosis and risks, and we agree with discharging home with close follow-up with the understanding that symptoms and presentations can change. We also discussed returning to the Emergency Department immediately if new or worsening symptoms occur. We have discussed the symptoms which are most concerning (e.g., bloody stool, fever, changing or worsening pain, vomiting) that necessitate immediate return. - Vital Signs Vital signs: Temp Pulse Resp BP Pulse Ox 98.2 F 89 18 114/60 99 01/29/18 15:03 01/29/18 15:03 01/29/18 15:03 01/29/18 15:03 01/29/18 15:03 - Laboratory Result Diagrams: 01/29/18 08:46 01/29/18 10:42 Laboratory results interpreted by me: 01/29/18 01/29/18 01/29/18 08:46 08:46 10:42 RDW 15.5 H Chloride 108 H Carbon Dioxide 16 L AST 10 L Urine Ascorbic Acid 40 H Discharge - Discharge Clinical Impression: Abdominal pain Qualifiers: Abdominal location: epigastric Qualified Code(s): R10.13 - Epigastric pain Nausea and vomiting Qualifiers: Vomiting type: unspecified Condition: Good Disposition: HOME, SELF-CARE Instructions: Abdominal Pain ([facility]), Antinausea Medication ([facility]), Vomiting ([facility]) Additional Instructions: Ulcer You have an ulcer. An ulcer is an erosion of the lining of the stomach or duodenum. It's a hole "burned out" by acid. Typically, this causes a burning or gnawing upper abdominal pain. Bleeding may occur from the ulcer. Ulcers may be started by alcohol or medicines, or by infection of the stomach. Antacids may be taken for pain, and may allow the ulcer to heal when taken after meals and at bedtime. More commonly, acid- suppressing drugs or ulcer- protective drugs (like Carafate) are prescribed. Avoid aspirin, ibuprofen, caffeine, tobacco, and alcohol. Repeat tests to confirm healing of the ulcer may be necessary. Some ulcers seem to be brought on by infection. If the doctor feels this is likely, you may be treated with bismuth for several weeks. If the abdominal pain worsens, or there's evidence of bleeding (such as black, tarry stool, bloody or black vomit, or lightheadedness), you should call the doctor or return immediately. Advised to follow a brat diet. Continue taking Prevacid 300 mg twice a day as well as her Carafate, stay hydrated so you have normal bowel movements. Follow- up with Dr. German Martínez, your consultant nurse on Thursday to set up appointment. Avoid any triggering foods. Take Zofran as needed for any nausea. Return to the emergency room if symptoms become worse. Return immediately for any new or worsening symptoms. Follow up with primary care provider, call tomorrow to make followup appointment. Prescriptions: Ondansetron [Zofran Odt 4 mg Tablet] 1 - 2 tab PO Q4H PRN #20 tab.rapdis PRN Reason: For Nausea/Vomiting Promethazine HCl [Phenergan 25 mg Supp.rect] 1 supp OR Q6H #12 supp.rect Referrals: GERMAN MARTÍNEZ MD [ACTIVE STAFF] - Follow up in 3-5 days JOHANNA PEPE MD [ACTIVE STAFF] - Follow up as needed
--- NOTE | 2018-01-29 13:56 | RADIOLOGY REPORT (SQ) ---
EXAM DESCRIPTION: CT ABDOMEN WITH IV ORAL CONT COMPLETED DATE/TIME: 01/29/2018 1:40 pm REASON FOR STUDY: epigastric, LUQ pain, hx of gastric ulcer COMPARISON: None. TECHNIQUE: CT scan of the abdomen performed with intravenous and with oral contrast using helical sc anning technique with dynamic intravenous contrast injection. Images reviewed with lung, soft tissue, and bone windows. Reconstructed coronal and sagittal MPR images reviewed. Delayed images for evaluat ion of the urinary system also acquired and evaluated. All images stored on PACS. All CT scanners at this facility use dose modulation, iterative reconstruc tion, and/or weight based dosing when appropriate to reduce radiation dose to as low as reasonably ac hievable (ALARA). [facility]: Dose Right [facility]: CareDose [facility]: Dose Right [facility]: Teradose 4D [facility]: [place] CONTRAST TYPE AND DOSE: contrast/concentration: Isovue 370.00 mg/ml; Total Contrast Delivered: 70.0 ml; Total Saline Delivered: 66.0 ml RENAL FUNCTION: None required. The patient is less than 50 years old. RADIATION DOSE: CT Rad equipment meets quality standard of care and radiation dose reduction techniq ues were employed. CTDIvol: 6.5 - 9.1 mGy. DLP: 826 mGy-cm. . LIMITATIONS: None. FINDINGS: LOWER CHEST: No significant findings. No nodules or infiltrates. LIVER: Normal size. No masses. No dilated ducts. SPLEEN: Normal size. No focal lesions. PANCREAS: No masses. No significant calcifications. No adjacent inflammation or peripancreatic fluid collections. Pancreatic duct not dilated. GALLBLADDER: No identified stones by CT criteria. No inflammatory changes to suggest cholecystitis. ADRENAL GLANDS: No significant masses or asymmetry. RIGHT KIDNEY AND URETER: No solid masses. No significant calcifications. No hydronephrosis or hyd roureter. LEFT KIDNEY AND URETER: No solid masses. No significant calcifications. No hydronephrosis or hydr oureter. AORTA AND VESSELS: No aneurysm. No dissection. Renal arteries, SMA, celiac without stenosis. RETROPERITONEUM: No retroperitoneal adenopathy, hemorrhage or masses. BOWEL AND PERITONEAL CAVITY: There is thickening of the wall of the gastric antrum, likely related to peristalsis no bowel mass is seen. No inflammatory changes are appreciated in small or large bowel. APPENDIX: Normal. PELVIS: The urinary bladder is normal. The uterus is absent. There is no free fluid. ABDOMINAL WALL: No masses. No hernias. BONES: No significant or acute findings. OTHER: No other significant finding. IMPRESSION: There is thickening of the wall of the gastric antrum. This could be secondary to peris talsis. To inflammatory change cannot be excluded. There is no free air or fluid in the abdomen. TECHNICAL DOCUMENTATION: JOB ID: [id number] Quality ID # [id number]: Final reports with documentation of one or more dose reduction techniques (e.g., Au tomated exposure control, adjustment of the mA and/or kV according to patient size, use of iterative reconstruction technique) 2010 [employer] All Rights Reserved Reading location - IP/workstation name: [email or web address]
[2018-01-29] MEDS ORDERED: FENTANYL CITRATE INJ/PF 100 MCG/2 ML AMPUL IV ONE (14:19)
[2018-01-29 15:07] VITALS: BP 114/60
== END 2018-01-29 15:07 | disposition home or self-care (01) ==
LOC: ER 08:06
DX: K25.9 Gastric ulcer, unspecified as acute or chronic, without hemorrhage or perforation (principal); R10.13 Epigastric pain; R11.2 Nausea with vomiting, unspecified; F17.200 Nicotine dependence, unspecified, uncomplicated
CPT/HCPCS: 99284; 96361; 96374; 96375; 36415; 87086; 84702; 83690; 85025; 85610; 85730; 80053; 81001; 74160; J3010; J2405; J7030

== ENCOUNTER 2018-02-10 19:05 | Inpatient (IN) | payer MEDICAID ==
[2018-02-10] MEDS ORDERED: NORMAL SALINE 1000 ML 1,000 ML IV ONE (19:23)
[2018-02-10] MEDS ORDERED: MORPHINE SULFATE 10 MG/ML INJ IV ONE (19:23)
--- NOTE | 2018-02-10 19:24 | ER Document Report ---
ED Medical Screen (RME) - General Chief Complaint: Nausea/Vomiting Stated Complaint: STOMACH PAIN Time Seen by Provider: 02/10/18 19:23 Notes: pt states this is the worst abdominal pain she has had, she has nvd. TRAVEL OUTSIDE OF THE [place] IN LAST 30 DAYS: No - Related Data Allergies/Adverse Reactions: No Known Allergies Allergy (Verified 01/29/18 08:07) Past Medical History - Past Medical History Cardiac Medical History: Reports: Hx Hypercholesterolemia, Hx Hypertension Neurological Medical History: Reports: Hx Migraine. Denies: Hx Seizures Renal/ Medical History: Denies: Hx Peritoneal Dialysis Psychiatric Medical History: Reports: Hx Depression Past Surgical History: Reports: Hx Section - X3, Hx Genitourinary Surgery - D&Cs x 2, Hx Hysterectomy - Immunizations Hx Diphtheria, Pertussis, Tetanus Vaccination: Yes History of Influenza Vaccine for 08/2017 - 01/2018 Season: Refused Physical Exam - Vital signs Vitals: Temp Pulse Resp BP Pulse Ox 98.4 F 111 H 24 H 136/94 H 99 02/10/18 19:16 02/10/18 19:16 02/10/18 19:16 02/10/18 19:16 02/10/18 19:16 Course - Vital Signs Vital signs: Temp Pulse Resp BP Pulse Ox 98.4 F 111 H 24 H 136/94 H 99 02/10/18 19:16 02/10/18 19:16 02/10/18 19:16 02/10/18 19:16 02/10/18 19:16
[2018-02-10] MEDS ORDERED: ONDANSETRON HCL INJ/PF 4 MG/2 ML SDV IV ONE (19:48)
[2018-02-10 19:53] LABS: ABSOLUTE LYMPHOCYTES (AUTO) 0.9 10^3/uL (0.5-4.7); ABSOLUTE MONOCYTES (AUTO) 0.4 10^3/uL (0.1-1.4); ABSOLUTE NEUT (AUTO) 6.9 10^3/uL (1.7-8.2); BASOPHILS % (AUTO) 0.3 % (0-2); EOSINOPHILS % (AUTO) 0.4 % (0-6); HEMATOCRIT 43.4 % (36.0-47.0); HEMOGLOBIN 14.8 g/dL (12.0-15.5); LYMPHOCYTES % (AUTO) 10.8 % (13-45); MEAN CORPUSCULAR HEMOGLOBIN 32.3 pg (27.0-33.4); MEAN CORPUSCULAR VOLUME 95 fl (80-97); MONOCYTES % (AUTO) 4.4 % (3-13); PLATELET COUNT 395 10^3/uL (150-450); RED BLOOD COUNT 4.57 10^6/uL (3.72-5.28); SEGMENTED NEUTROPHILS % (AUTO) 84.1 % (42-78); TOTAL CELLS COUNTED % (AUTO) 100 %; WHITE BLOOD COUNT 8.2 10^3/uL (4.0-10.5)
[2018-02-10 21:45] LABS: ALANINE AMINOTRANSFERASE 21 U/L (9-52); ALBUMIN 4.4 g/dL (3.5-5.0); ALKALINE PHOSPHATASE 39 U/L (38-126); ANION GAP 12 (5-19); ASPARTATE AMINO TRANSFERASE 17 U/L (14-36); BILIRUBIN,DIRECT 0.2 mg/dL (0.0-0.4); BILIRUBIN,TOTAL 0.4 mg/dL (0.2-1.3); BLOOD UREA NITROGEN 12 mg/dL (7-20); CALCIUM 9.8 mg/dL (8.4-10.2); CARBON DIOXIDE 23 mmol/L (22-30); CHLORIDE 105 mmol/L (98-107); GLUCOSE 104 mg/dL (75-110); LIPASE 81.9 U/L (23-300); POTASSIUM 4.2 mmol/L (3.6-5.0); SODIUM 140.3 mmol/L (137-145)
[2018-02-10] MEDS ORDERED: PROMETHAZINE HCL INJ 25 MG/1 ML VIAL IM ONE (22:24)
--- NOTE | 2018-02-10 22:48 | ER Document Report ---
ED General - General TRAVEL OUTSIDE OF THE [place] IN LAST 30 DAYS: No <JAE SPARROW - Last Filed: 02/11/18 01:50> <LUC CASTRO - Last Filed: 02/11/18 07:47> - General Chief Complaint: Nausea/Vomiting Stated Complaint: STOMACH PAIN Time Seen by Provider: 02/10/18 19:23 Notes: Patient is a 38-year-old female presents with complaint of right-sided abdominal pain is more in the lower portion of her abdomen and also into the suprapubic region. She says it has been there for approximately 24 hours. Some nausea and vomiting. No fevers. No diarrhea. No black tarry stools. She also has some epigastric pain but says this is chronic due to history of ulcers. She is followed by Dr. Martínez. She does have an upcoming repeat endoscopy. She denies any dysuria. She denies any abnormal vaginal discharge or bleeding. She has no other complaints at this time. No previous history of kidney stones. (AJE SPARROW) - Related Data Allergies/Adverse Reactions: No Known Allergies Allergy (Verified 01/29/18 08:07) Past Medical History - Social History Smoking Status: Current Every Day Smoker Frequency of alcohol use: None Drug Abuse: None Family History: Reviewed & Not Pertinent, Other Patient has suicidal ideation: No Patient has homicidal ideation: No - Past Medical History Cardiac Medical History: Reports: Hx Hypercholesterolemia, Hx Hypertension Neurological Medical History: Reports: Hx Migraine. Denies: Hx Seizures Renal/ Medical History: Denies: Hx Peritoneal Dialysis Psychiatric Medical History: Reports: Hx Depression Past Surgical History: Reports: Hx Section - X3, Hx Genitourinary Surgery - D&Cs x 2, Hx Hysterectomy - Immunizations Hx Diphtheria, Pertussis, Tetanus Vaccination: Yes <JAE SPARROW - Last Filed: 02/11/18 01:50> Review of Systems <JAE SPARROW - Last Filed: 02/11/18 01:50> <LUC CASTRO - Last Filed: 02/11/18 07:47> - Review of Systems Notes: My Normal Review Basic REVIEW OF SYSTEMS: CONSTITUTIONAL : Denies fever, chills, or sweats. Denies recent illness. EENT: Denies eye, ear, throat, or mouth pain or symptoms. Denies nasal or sinus congestion. RESPIRATORY: Denies cough, cold, or chest congestion. Denies shortness of breath, difficulty breathing, or wheezing. GASTROINTESTINAL: Lower and right-sided abdominal pain. Denies nausea, vomiting , or diarrhea. GENITOURINARY: Denies difficulty urinating, painful urination, burning, frequency, or blood in urine. FEMALE GENITOURINARY: Denies vaginal bleeding, abnormal or irregular periods. LMP: History of hysterectomy. MUSCULOSKELETAL: Denies neck or back pain or joint pain or swelling. SKIN: Denies rash or skin lesions. NEUROLOGICAL: Denies altered mental status or loss of consciousness. Denies headache. Denies weakness or paralysis or loss of use of either side. Denies problems with gait or speech. Denies sensory or motor loss. ALL OTHER SYSTEMS REVIEWED AND NEGATIVE. (JAE SPARROW) Physical Exam <JAE SPARROW - Last Filed: 02/11/18 01:50> <LUC CASTRO - Last Filed: 02/11/18 07:47> - Vital signs Vitals: Temp Pulse Resp BP Pulse Ox 98.4 F 111 H 24 H 136/94 H 99 02/10/18 19:16 02/10/18 19:16 02/10/18 19:16 02/10/18 19:16 02/10/18 19:16 - Notes Notes: General Appearance: Well nourished, alert, cooperative, no acute distress, mild to moderate obvious discomfort. Vitals: reviewed, See vital signs table. Head: no swelling or tenderness to the head Eyes: PERRL, EOMI, Conjuctiva clear Mouth: No decreasd moisture Lungs: No wheezing, No rales, No rhonci, No accessory muscle use, good air exchange bilaterally. Heart: Normal rate, Regular rythm, Abdomen: Normal BS, soft, No rigidity, moderate suprapubic and right lower quadrant abdominal tenderness to palpation, No guarding, no rebound, no abdominal masses, no organomegaly Extremities: strength 5/5 in all extremities, good pulses in all extremities, no swelling or tenderness in the extremities, no edema. Skin: warm, dry, appropriate color, no rash Neuro: speech clear, oriented x 3, normal affect, responds appropriately to questions. (JAE SPARROW) Course - Laboratory Result Diagrams: 02/10/18 19:42 02/10/18 21:15 <JAE SPARROW - Last Filed: 02/11/18 01:50> - Laboratory Result Diagrams: 02/10/18 19:42 02/10/18 21:15 <LUC CASTRO - Last Filed: 02/11/18 07:47> - Re-evaluation Re-evalutation: 02/10/18 23:59 On reevaluation patient continues to have pain mainly in the right lower quadrant portion of her abdomen. Is not rebound. She is his worst pain is different than her chronic pain. She still has her appendix. Ultrasounds of her kidneys as well as her pelvic ultrasound was negative. Will obtain a CT scan to look at the appendix. 02/11/18 01:50 CT scan shows partial small bowel obstruction with with the feels obstruction in the distal ileum which coincides the patient's location of pain in the right lower quadrant. I did call the surgeon, Dr. Norris, who wants a repeat CT scan performed with oral contrast only. He wants us to wait 2 hours to repeat the scan after the patient has drank the oral contrast. (JAE SPARROW) 02/11/18 06:00: Sign-out from Dr. Sparrow. 38 yo female with N/V and diffuse abdominal pain, worse in the right lower quadrant. CT scan with IV contrast shows a possible obstruction distal ileum. He spoke to Dr. Krueger, the surgeon , who is requesting a repeat CT scan with oral contrast only. Patient's nausea has improved slightly on my reeval. 02/11/18 07:43 CT A/P w/ PO contrast shows a partial small bowel obstruction with transition point in the distal ileum. Will place NG tube and begin IV fluids. Spoke to Dr. Mcconnell who is aware of the patient. Pt requires admission for further monitoring and treatment. (LUC CASTRO) - Vital Signs Vital signs: Temp Pulse Resp BP Pulse Ox 98.2 F 88 18 130/88 H 100 02/11/18 04:54 02/11/18 04:54 02/11/18 04:54 02/11/18 04:54 02/11/18 04:54 - Laboratory Laboratory results interpreted by me: 02/10/18 02/10/18 19:42 22:20 RDW 16.0 H Seg Neutrophils % 84.1 H Lymphocytes % 10.8 L Urine Protein 30 H Urine Ketones 20 H Urine Ascorbic Acid 20 H Discharge <JAE SPARROW - Last Filed: 02/11/18 01:50> - Discharge Admitting Provider: Surgicalist - [facility] Unit Admitted: Surgical Floor <LUC CASTRO - Last Filed: 02/11/18 07:47> - Discharge Clinical Impression: Partial small bowel obstruction Condition: Stable Disposition: ADMITTED INPATIENT Referrals: CYRUS GALLARDO MD [Primary Care Provider] - Follow up as needed
[2018-02-10 22:55] LABS: APPEARANCE,URINE SLIGHTLY-CLOUDY; BILIRUBIN,URINE NEGATIVE (NEGATIVE); COLOR,URINE YELLOW; GLUCOSE, URINE NEGATIVE (NEGATIVE); KETONES,URINE 20 mg/dL (NEGATIVE); LEUKOCYTE ESTERASE,URINE NEGATIVE (NEGATIVE); NITRITE,URINE NEGATIVE (NEGATIVE); PROTEIN,URINE 30 mg/dL (NEGATIVE); URINE SPECIFIC GRAVITY 1.027; UROBILINOGEN,URINE NEGATIVE mg/dL (<2.0)
[2018-02-10] MEDS ORDERED: KETOROLAC TROMETHAMINE INJ/PF 30 MG/1 ML SDV IV ONE (23:08)
--- NOTE | 2018-02-10 23:35 | RADIOLOGY REPORT (SQ) ---
EXAM DESCRIPTION: U/S RETROPERITON (RENAL/AORTA) COMPLETED DATE/TIME: 02/10/2018 11:20 pm REASON FOR STUDY: right sided pain COMPARISON: None. TECHNIQUE: Dynamic and static grayscale images acquired of the kidneys and bladder and recorded on P ACS. Additional selected color Doppler and spectral images recorded. LIMITATIONS: None. FINDINGS: RIGHT KIDNEY: Normal size. Normal echogenicity. No solid or suspicious masses. No hydronep hrosis. No calcifications. LEFT KIDNEY: Normal size. Normal echogenicity. No solid or suspicious masses. No hydronephrosis. No calcifications. BLADDER: No masses. OTHER FINDINGS: No other significant finding. IMPRESSION: No acute findings. TECHNICAL DOCUMENTATION: JOB ID: [id number] 2010 [employer]- All Rights Reserved Reading location - IP/workstation name: [email or web address]
--- NOTE | 2018-02-10 23:37 | RADIOLOGY REPORT (SQ) ---
EXAM DESCRIPTION: U/S NON OB PEL TV W/DOPPLER COMPLETED DATE/TIME: 02/10/2018 11:21 pm REASON FOR STUDY: pelvic pain COMPARISON: None. TECHNIQUE: Dynamic and static grayscale images acquired of the pelvis via transvaginal approach and recorded on PACS. Additional selected color Doppler and spectral images recorded. LIMITATIONS: None. FINDINGS: Uterus and ovaries are not identified. FREE FLUID: Trace. OTHER: No other significant finding. IMPRESSION: Uterus and ovaries are not identified. Trace free fluid. TECHNICAL DOCUMENTATION: JOB ID: [id number] [place]-[id number] 2010 [employer]- All Rights Reserved Reading location - IP/workstation name: [email or web address]
--- NOTE | 2018-02-11 01:32 | RADIOLOGY REPORT (SQ) ---
EXAM DESCRIPTION: CT ABDOMEN AND PELVIS WITH CONTRAST CLINICAL HISTORY: RLQ abdominal tenderness COMPARISON: 01/29/2018 TECHNIQUE: CT of the abdomen and pelvis performed following IV administration of 70.2 mL of Isovue-370. DLP: 748.90 mGycm FINDINGS: Lung Bases: The visualized lung bases are clear. Bones: No destructive bone lesions identified. Abdomen: Liver: The liver has normal size and density. Gallbladder: No calcified gallstones. Spleen, Pancreas, and Adrenal Glands: The spleen, pancreas, and adrenal glands are unremarkable. Kidneys: The kidneys have normal size and contour without evidence of solid mass or hydronephrosis. Vasculature: The aorta and IVC have normal caliber and position Stomach: The stomach and duodenum have normal course. Other: No free intraperitoneal air. No free fluid or lymphadenopathy. Pelvis: Bladder: Urinary bladder is unremarkable. Bowel: Dilated loops of small bowel throughout the abdomen with fecalization of the distal ileum. The colon is decompressed. Appendix: Normal appendix. Pelvis: No adnexal masses. IMPRESSION: 1. Findings suggestive of at least partial small bowel obstruction with the level of obstruction in the distal or terminal ileum. Exact transition point is not identified. This exam was performed according to our departmental dose-optimization program, which includes automated exposure control, adjustment of the mA and/or kV according to patient size and/or use of iterative reconstruction technique.
[2018-02-11] MEDS ORDERED: MORPHINE SULFATE 10 MG/ML INJ IV ONE (01:49)
[2018-02-11] MEDS ORDERED: ONDANSETRON HCL INJ/PF 4 MG/2 ML SDV IV ONE (02:18)
--- NOTE | 2018-02-11 06:33 | RADIOLOGY REPORT (SQ) ---
EXAM DESCRIPTION: CT ABDOMEN AND PELVIS WITHOUT CONTRAST CLINICAL HISTORY: small bowel obstruciton COMPARISON: 02/11/2018 TECHNIQUE: CT of the abdomen and pelvis without IV contrast. Evaluation of the solid organs and vasculature is suboptimal due to lack of IV contrast. Oral contrast administered. DLP: 352.10 mGy-cm FINDINGS: Lung Bases: The visualized lung bases are clear. Bones: No destructive bone lesions identified. Abdomen: Liver: The liver has normal size and density. Gallbladder: No calcified gallstones. Spleen, Pancreas, and Adrenal Glands: The spleen, pancreas, and adrenal glands are unremarkable. Kidneys: The kidneys have normal size and contour without evidence of hydronephrosis. No obstructing ureteral calculi. Vasculature: The aorta and IVC have normal caliber and position. Stomach: The stomach and duodenum have normal course. Other: No free intraperitoneal air. No free fluid or lymphadenopathy. Pelvis: Bladder: Urinary bladder is unremarkable. Displayed administered IV contrast noted in the renal collecting system and urinary bladder. Bowel: Dilated loops of small bowel throughout the abdomen. There is fecalization of the distal ileum. The terminal ileum has normal caliber suggesting transition point in the distal ileum. The colon is decompressed. Contrast does not reach the distal small bowel or colon. Appendix: Normal appendix. Pelvis: No adnexal masses. IMPRESSION: 1. Findings compatible with likely partial small bowel obstruction with transition point in the distal or terminal ileum. No oral contrast identified in the distal small bowel or proceeding into the colon. This exam was performed according to our departmental dose-optimization program, which includes automated exposure control, adjustment of the mA and/or kV according to patient size and/or use of iterative reconstruction technique.
[2018-02-11] MEDS ORDERED: NORMAL SALINE 1000 ML 1,000 ML IV ONE (07:05)
[2018-02-11] MEDS ORDERED: MIDAZOLAM 2 MG/2 ML INJ IV ONE (07:05)
--- NOTE | 2018-02-11 09:00 | RADIOLOGY REPORT (SQ) ---
EXAM DESCRIPTION: CHEST SINGLE VIEW COMPLETED DATE/TIME: 02/11/2018 8:44 am REASON FOR STUDY: ng tube placement COMPARISON: 11/23/2017 EXAM PARAMETERS: NUMBER OF VIEWS: One view. TECHNIQUE: Single frontal radiographic view of the chest acquired. RADIATION DOSE: NA LIMITATIONS: None. FINDINGS: LUNGS AND PLEURA: No opacities, masses or pneumothorax. No pleural effusion. MEDIASTINUM AND HILAR STRUCTURES: No masses. Contour normal. HEART AND VASCULAR STRUCTURES: Heart normal in size. Normal vasculature. BONES: No acute findings. HARDWARE: Distal NG tube beneath the diaphragm and appears to be in satisfactory position. OTHER: No other significant finding. IMPRESSION: NO ACUTE RADIOGRAPHIC FINDING IN THE CHEST. Distal NG tube beneath the diaphragm and wi thin the fundus of the stomach. TECHNICAL DOCUMENTATION: JOB ID: [id number] [employer]- All Rights Reserved Reading location - IP/workstation name: [email or web address]
[2018-02-11] MEDS ORDERED: GLUCAGON,HUMAN RECOMB 1 MG INJ SUBCUT PRN (09:18)
[2018-02-11] MEDS ORDERED: DEXTROSE 50%-WATER 25 GM/50 ML DISP.SYRIN IV PRN ×2 (09:18)
[2018-02-11] MEDS ORDERED: DEXTROSE 40% GEL 15 GM TUBE PO PRN ×2 (09:18)
--- NOTE | 2018-02-11 09:18 | PDOC H&P ---
History of Present Illness Admission Date/PCP: 02/11/18 08:04 CYRUS GALLARDO MD Patient complains of: Abdominal pain and nausea vomiting History of Present Illness: AMBER DAMICO is a 38 year old female with long history of peptic ulcer disease with abdominal pain and nausea and vomiting. Returning back to the hospital with recurrent episodes of epigastric abdominal pain along with multiple episodes of emesis. Patient had a bowel movement couple of days ago. Patient's current episodes of nausea and vomiting and abdominal pain began couple of days ago. NG tube was placed in the ER and there is very scant amount of fluid in the container. The pain has decreased since being in the ER. Patient is pending an upper endoscopy with Dr. Martínez tomorrow. She has had multiple gynecologic surgeries including C-sections and laparoscopic hysterectomy. No prior bowel surgery no prior abdominal hernia surgeries. No fevers or chills. She has been passing small amounts of flatus over the past couple of days. Past Medical History Cardiac Medical History: Reports: Hyperlipidema, Hypertension Neurological Medical History: Reports: Migraine Denies: Seizures Psychiatric Medical History: Reports: Depression Past Surgical History Past Surgical History: Reports: Section - X3, Hysterectomy Social History Smoking Status: Current Every Day Smoker Frequency of Alcohol Use: None Hx Recreational Drug Use: No Hx Prescription Drug Abuse: No Family History Family History: Reviewed & Not Pertinent, Other Parental Family History Reviewed: No Children Family History Reviewed: No Sibling(s) Family History Reviewed.: No Medication/Allergy Home Medications: Omeprazole [Omeprazole] 40 mg PO BID 02/11/18 Promethazine HCl 12.5 mg PO Q6HP PRN 02/11/18 Sucralfate [Carafate 1 gm Tablet] 1 gm PO QID 02/11/18 Allergies/Adverse Reactions: No Known Allergies Allergy (Verified 01/29/18 08:07) Physical Exam Vital Signs: Temp Pulse Resp BP Pulse Ox 98.2 F 88 18 130/88 H 100 02/11/18 04:54 02/11/18 04:54 02/11/18 04:54 02/11/18 04:54 02/11/18 04:54 General appearance: PRESENT: no acute distress, cooperative Eye exam: PRESENT: conjunctiva pink Neck exam: PRESENT: other - Supple with no tenderness Respiratory exam: PRESENT: clear to auscultation jennie Cardiovascular exam: PRESENT: RRR GI/Abdominal exam: PRESENT: other - With epigastric abdominal tenderness without peritoneal signs. No right upper quadrant abdominal tenderness. No right lower quadrant abdominal tenderness. Bowel sounds heard. Extremities exam: PRESENT: other - No swelling and no tenderness. Neurological exam: PRESENT: alert, awake Psychiatric exam: PRESENT: appropriate affect Skin exam: PRESENT: warm Results Impressions: Renal Ultrasound 02/10/18 22:24 IMPRESSION: No acute findings. Transvaginal US 02/10/18 22:24 IMPRESSION: Uterus and ovaries are not identified. Trace free fluid. Chest X-Ray 02/11/18 00:00 IMPRESSION: NO ACUTE RADIOGRAPHIC FINDING IN THE CHEST. Distal NG tube beneath the diaphragm and within the fundus of the stomach. Abdomen/Pelvis CT 02/11/18 01:48 IMPRESSION: 1. Findings compatible with likely partial small bowel obstruction with transition point in the distal or terminal ileum. No oral contrast identified in the distal small bowel or proceeding into the colon. This exam was performed according to our departmental dose-optimization program, which includes automated exposure control, adjustment of the mA and/or kV according to patient size and/or use of iterative reconstruction technique. Assessment & Plan - Diagnosis (1) Abdominal pain Qualifiers: Abdominal location: epigastric Qualified Code(s): R10.13 - Epigastric pain Is this a current diagnosis for this admission?: Yes Plan: Along with nausea and vomiting although NG output is very scant at this time. CT scan demonstrates a possible partial small bowel obstruction very distally. She does have duodenal wall thickening. I believe that peptic ulcer disease is the primary culprit of her problems. I am reluctant to give her 2 diagnoses. However partial small bowel obstruction cannot be completely excluded. I will admit the patient and place her on IV fluids, continued NG to low wall intermittent suction, IV proton pump inhibitor. I will consult Dr. 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 I will obtain repeat abdominal x-rays later today to see whether the contrast has gone into the colon. She has a history of gallstones documented in her records but her last ultrasound demonstrates no gallstones. In fact the gallbladder appeared normal on her last ultrasound.
[2018-02-11] MEDS ORDERED: (PENDING PHARMACY ID) (Promethazine Hcl [Promethazine Hcl] 12.5 MG) PO PRN (09:23)
[2018-02-11] MEDS ORDERED: PROMETHAZINE HCL 25 MG TABLET PO PRN (10:56)
[2018-02-11] MEDS ORDERED: PANTOPRAZOLE SODIUM 40 MG VIAL IV ONE (11:00)
[2018-02-11] MEDS: NORMAL SALINE 1000 ML 1,000 ML IV PRN ×2 (11:16→21:05)
[2018-02-11] MEDS: HYDROMORPHONE HCL INJ/PF 2 MG/ML AMPULE IV PRN ×3 (11:27→20:20)
[2018-02-11] MEDS ORDERED: SUCRALFATE 1 GM TABLET PO SCH (14:00)
--- NOTE | 2018-02-11 15:29 | RADIOLOGY REPORT (SQ) ---
EXAM DESCRIPTION: ABDOMEN 2 VIEWS COMPLETED DATE/TIME: 02/11/2018 2:54 pm REASON FOR STUDY: f/u psbo COMPARISON: None. NUMBER OF VIEWS: Two views. TECHNIQUE: Supine and erect/decubitus radiographic images of the abdomen acquired. LIMITATIONS: None. FINDINGS: There is a nasogastric tube in the stomach. There is oral contrast throughout nondilated colon. Cecum is not dilated. Gas fluid levels within nondilated loops of large and small bowel. There is contrast in the urinary bladder. IMPRESSION: Ileus. No obstruction. TECHNICAL DOCUMENTATION: JOB ID: [id number] [employer]- All Rights Reserved Reading location - IP/workstation name: [email or web address]
--- NOTE | 2018-02-11 17:16 | PDOC PROGRESS REPORT ---
Subjective Progress Note for:: 02/11/18 Subjective:: Appears comfortable but still complaining of epigastric abdominal pain. Reason For Visit: PEPTIC ULCER DISEASE. ABDOMINAL PAIN. NAUSEA Physical Exam Vital Signs: Temp Pulse Resp BP Pulse Ox 98.3 F 77 16 98/51 L 100 02/11/18 15:31 02/11/18 15:31 02/11/18 15:31 02/11/18 15:31 02/11/18 15:31 Intake & Output 02/10/18 02/11/18 02/12/18 06:59 06:59 06:59 Weight 73.7 kg General appearance: PRESENT: no acute distress, cooperative GI/Abdominal exam: PRESENT: other - Soft, nondistended, epigastric abdominal tenderness without peritoneal signs. Results Impressions: Renal Ultrasound 02/10/18 22:24 IMPRESSION: No acute findings. Transvaginal US 02/10/18 22:24 IMPRESSION: Uterus and ovaries are not identified. Trace free fluid. Chest X-Ray 02/11/18 00:00 IMPRESSION: NO ACUTE RADIOGRAPHIC FINDING IN THE CHEST. Distal NG tube beneath the diaphragm and within the fundus of the stomach. Abdomen/Pelvis CT 02/11/18 01:48 IMPRESSION: 1. Findings compatible with likely partial small bowel obstruction with transition point in the distal or terminal ileum. No oral contrast identified in the distal small bowel or proceeding into the colon. This exam was performed according to our departmental dose-optimization program, which includes automated exposure control, adjustment of the mA and/or kV according to patient size and/or use of iterative reconstruction technique. Abdomen X-Ray 02/11/18 13:00 IMPRESSION: Ileus. No obstruction. Assessment & Plan - Diagnosis (1) Abdominal pain Qualifiers: Abdominal location: epigastric Qualified Code(s): R10.13 - Epigastric pain Is this a current diagnosis for this admission?: Yes Plan: Follow-up KUB demonstrated passage of contrast into the colon therefore small bowel obstruction is excluded. Her symptoms are due to her peptic ulcer disease. Pending evaluation by Dr. Martínez for upper endoscopy.
[2018-02-11] MEDS ORDERED: PHENOL/SODIUM PHENOLATE 100 SPRAY/177 ML BOTTLE PO PRN (21:03)
[2018-02-11] MEDS: BENZOCAINE/MENTHOL SORE THROAT LOZENGE BUCCAL PRN (21:47)
[2018-02-11] MEDS: PANTOPRAZOLE SODIUM 40 MG VIAL IV SCH (21:47)
[2018-02-12] MEDS: HYDROMORPHONE HCL INJ/PF 2 MG/ML AMPULE IV PRN ×6 (00:06→22:51)
[2018-02-12] MEDS: BENZOCAINE/MENTHOL SORE THROAT LOZENGE BUCCAL PRN ×3 (00:09→11:38)
[2018-02-12 05:12] LABS: HEMATOCRIT 31.5 % (36.0-47.0); MEAN CORPUSCULAR HEMOGLOBIN 31.5 pg (27.0-33.4); MEAN CORPUSCULAR HGB CONC 32.3 g/dL (32.0-36.0); MEAN CORPUSCULAR VOLUME 98 fl (80-97); PLATELET COUNT 189 10^3/uL (150-450); RED BLOOD COUNT 3.23 10^6/uL (3.72-5.28); RED CELL DISTRIBUTION WIDTH 15.6 % (11.5-14.0)
[2018-02-12 05:15] LABS: HEMOGLOBIN 10.2 g/dL (12.0-15.5)
[2018-02-12 05:30] LABS: ANION GAP 10 (5-19); BLOOD UREA NITROGEN 10 mg/dL (7-20); CALCIUM 8.5 mg/dL (8.4-10.2); CARBON DIOXIDE 22 mmol/L (22-30); CHLORIDE 110 mmol/L (98-107); GLUCOSE 71 mg/dL (75-110); POTASSIUM 3.4 mmol/L (3.6-5.0); SODIUM 141.9 mmol/L (137-145)
[2018-02-12] MEDS: PANTOPRAZOLE SODIUM 40 MG VIAL IV SCH (11:35)
[2018-02-12] MEDS ORDERED: NALOXONE HCL INJ/PF 0.4 MG/1 ML SDV ONE (14:46)
[2018-02-12] MEDS ORDERED: FLUMAZENIL INJ 0.5 MG/5 ML VIAL ONE (14:47)
[2018-02-12] MEDS ORDERED: EPINEPHRINE INJ 1 MG/10 ML DISP.SYRIN ONE (14:47)
[2018-02-12] MEDS ORDERED: GLUCAGON,HUMAN RECOMB 1 MG INJ ONE (14:47)
[2018-02-12] MEDS ORDERED: FENTANYL CITRATE INJ/PF 100 MCG/2 ML AMPUL ONE (14:47)
[2018-02-12] MEDS: MIDAZOLAM 2 MG/2 ML INJ ONE ×2 (16:38→16:43)
--- NOTE | 2018-02-12 17:16 | PDOC CONSULTATION ---
Consultation Consult Date: 02/11/18 History of Present Illness Admission Date/PCP: 02/11/18 08:04 CYRUS GALLARDO MD History of Present Illness: This is a 38-year-old patient was admitted on 02/11/2018 with abdominal pain and vomiting. The pain started many hours prior to presenting to the ER. She has a chronic constant pain that has been going on since August of last year with location exacerbation. She tends to vomit when the pain is worse and vomiting makes the pain better for a short while. She was diagnosed with prepyloric gastric ulcer by Dr. Gutierrez ruiz in September 2017. I repeated her endoscopy a few weeks ago and this again showed large gastroduodenal ulcer. She had a colonoscopy within the last few weeks that showed some ulceration in the terminal ileum. I started her on Apriso and she has been taking lansoprazole twice a day and Carafate 4 times a day. She had been to the emergency room twice in the last few weeks each time with abdominal pain and vomiting. She had a CAT scan on 02/11/2018 showing some dilated small bowel loops throughout the abdomen with the terminal ileum having a normal caliber suggestive of a transition point in the distal ileum. Past Medical History Cardiac Medical History: Reports: Hyperlipidema, Hypertension Neurological Medical History: Reports: Migraine Denies: Seizures Psychiatric Medical History: Reports: Depression Past Surgical History Past Surgical History: Reports: Section - X3, Hysterectomy Social History Smoking Status: Current Every Day Smoker Cigarettes Packs Per Day: 0.5 Number of Years Smokin Last Time Smoked: 02/10/2018 Frequency of Alcohol Use: Occasional Hx Recreational Drug Use: No Drugs: None Hx Prescription Drug Abuse: No - Advance Directive Resuscitation Status: Full Code Family History Family History: Reviewed & Not Pertinent, Other Parental Family History Reviewed: No Children Family History Reviewed: NA Sibling(s) Family History Reviewed.: NA Medication/Allergy Home Medications: Omeprazole [Omeprazole] 40 mg PO BID 02/11/18 Promethazine HCl 12.5 mg PO Q6HP PRN 02/11/18 Sucralfate [Carafate 1 gm Tablet] 1 gm PO QID 02/11/18 Allergies/Adverse Reactions: No Known Allergies Allergy (Verified 01/29/18 08:07) Review of Systems All systems: reviewed and no additional remarkable complaints except as stated Physical Exam Vital Signs: Temp Pulse Resp BP Pulse Ox 97.7 F 78 13 104/52 L 98 02/12/18 08:21 02/12/18 16:40 02/12/18 16:40 02/12/18 16:40 02/12/18 16:40 Intake & Output 02/11/18 02/12/18 02/13/18 06:59 06:59 06:59 Intake Total 1200 Output Total 1750 Balance -550 Weight 78.3 kg Exam: General: Patient is alert and looks well. HEENT: There is no pallor or jaundice. PERRLA. Oropharynx normal Respiratory: No chest deformity. No respiratory distress. Chest wall palpitation was unremarkable. Breath sounds were normal Cardiovascular: Heart sounds 1 and 2 normal with no murmurs. Abdominal: Not distended. Soft and nontender. Liver and spleen not palpable. No ascites demonstrated. Bowel sounds active. Rectal examination was deferred. Extremities: No edema Neurological: Alert and oriented x4. Grossly nonfocal. Normal speech Skin: No significant rash Psychological: Normal affect Results Laboratory Results: 02/12/18 04:08 02/12/18 04:08 02/12/18 02/12/18 04:08 04:08 WBC 4.0 RBC 3.23 L Hgb 10.2 L D Hct 31.5 L MCV 98 H MCH 31.5 MCHC 32.3 RDW 15.6 H Plt Count 189 Sodium 141.9 Potassium 3.4 L Chloride 110 H Carbon Dioxide 22 Anion Gap 10 BUN 10 Creatinine 0.56 Est GFR ( Amer) > 60 Est GFR (Non-Af Amer) > 60 Glucose 71 L Calcium 8.5 Impressions: Renal Ultrasound 02/10/18 22:24 IMPRESSION: No acute findings. Transvaginal US 02/10/18 22:24 IMPRESSION: Uterus and ovaries are not identified. Trace free fluid. Chest X-Ray 02/11/18 00:00 IMPRESSION: NO ACUTE RADIOGRAPHIC FINDING IN THE CHEST. Distal NG tube beneath the diaphragm and within the fundus of the stomach. Abdomen/Pelvis CT 02/11/18 01:48 IMPRESSION: 1. Findings compatible with likely partial small bowel obstruction with transition point in the distal or terminal ileum. No oral contrast identified in the distal small bowel or proceeding into the colon. This exam was performed according to our departmental dose-optimization program, which includes automated exposure control, adjustment of the mA and/or kV according to patient size and/or use of iterative reconstruction technique. Abdomen X-Ray 02/11/18 13:00 IMPRESSION: Ileus. No obstruction. Assessment & Plan - Diagnosis (1) Vomiting Is this a current diagnosis for this admission?: Yes Plan: She was admitted for abdominal pain and vomiting and has been to the ER 1 or 2 other times in the last few weeks. I suspect her vomiting is related to her peptic ulcer disease though her CAT scan suggests a small bowel obstruction. Her last EGD showed a large gastroduodenal ulcer and she was taking NSAIDs every day prior to the last EGD. She has since discontinued NSAIDs and has been compliant with her PPI twice a day. She will undergo an EGD to reevaluate her ulcer. (2) Gastric ulcer Is this a current diagnosis for this admission?: Yes Plan: This is probably NSAID induced. She will continue with a PPI twice a day. (3) Abdominal pain Qualifiers: Abdominal location: epigastric Qualified Code(s): R10.13 - Epigastric pain Is this a current diagnosis for this admission?: Yes (4) Partial small bowel obstruction Is this a current diagnosis for this admission?: Yes Plan: She has recurrent worsening of her abdominal pain followed by vomiting which could be related to her pyloric channel ulcer and stenosis but small bowel disease is also possible. She did have a few ulcers in her terminal ileum which I felt was related to her NSAID use. We should continue conservative management for possible small bowel obstruction
--- NOTE | 2018-02-12 17:20 | Operative Report ---
Operative Report DATE OF SURGERY: 02/12/18 Operative Report: Pre-op diagnosis: Abdominal pain, vomiting, with history of gastric ulcer Post-op diagnosis: 1. 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 Rule out duodenal villous atrophy Surgery: Esophagogastroduodenoscopy with biopsy Medications: Versed 4 mg Fentanyl 100 mcg IV push Tissue removed: Antral and duodenal biopsy for pathology Procedure: After informed consent obtained from patient, the throat was sprayed with Hurricane and conscious sedation was achieved. The upper endoscope was inserted into the esophagus under direct vision and advanced into the stomach. The duodenum was entered and examined to the second part. Endoscope was then slowly pulled out of the patient as the mucosa was examined into details. Patient tolerated procedure well. Findings Esophagus: Normal Z-line at: 40 cm Antrum: 1 to 1.5 cm ulcer at the distal antrum and pyloric channel with surrounding edema and minimum stenosis. The ulcer actually appear smaller than 4 weeks ago. Biopsies were taken from the edge of the ulcer. Body: Normal Fundus: Normal Duodenum first part: The mucosa villi was not as prominent Duodenum second part: Mucosa villi was not as prominent Plan: Await pathology. Continue PPI twice a day. Avoid high-fiber diet and eat smaller more frequent meals OPERATION: .
--- NOTE | 2018-02-12 20:26 | PDOC PROGRESS REPORT ---
Subjective Progress Note for:: 02/12/18 Subjective:: No new issues. EGD for today Reason For Visit: PEPTIC ULCER DISEASE. ABDOMINAL PAIN. NAUSEA Physical Exam Vital Signs: Temp Pulse Resp BP Pulse Ox 98.7 F 90 12 125/74 98 02/12/18 19:28 02/12/18 19:28 02/12/18 19:28 02/12/18 19:28 02/12/18 19:28 Intake & Output 02/11/18 02/12/18 02/13/18 06:59 06:59 06:59 Intake Total 1200 3374 Output Total 1750 1700 Balance -550 1674 Weight 78.3 kg General appearance: PRESENT: no acute distress Respiratory exam: PRESENT: clear to auscultation jennie. ABSENT: rales, rhonchi, wheezes Cardiovascular exam: PRESENT: RRR. ABSENT: diastolic murmur, rubs, systolic murmur GI/Abdominal exam: PRESENT: soft, tenderness Neurological exam: PRESENT: alert, awake, oriented to person, oriented to place , oriented to time, oriented to situation, CN II-XII grossly intact. ABSENT: motor sensory deficit Results Laboratory Results: 02/12/18 04:08 02/12/18 04:08 02/12/18 02/12/18 04:08 04:08 WBC 4.0 RBC 3.23 L Hgb 10.2 L D Hct 31.5 L MCV 98 H MCH 31.5 MCHC 32.3 RDW 15.6 H Plt Count 189 Sodium 141.9 Potassium 3.4 L Chloride 110 H Carbon Dioxide 22 Anion Gap 10 BUN 10 Creatinine 0.56 Est GFR ( Amer) > 60 Est GFR (Non-Af Amer) > 60 Glucose 71 L Calcium 8.5 Impressions: Renal Ultrasound 02/10/18 22:24 IMPRESSION: No acute findings. Transvaginal US 02/10/18 22:24 IMPRESSION: Uterus and ovaries are not identified. Trace free fluid. Chest X-Ray 02/11/18 00:00 IMPRESSION: NO ACUTE RADIOGRAPHIC FINDING IN THE CHEST. Distal NG tube beneath the diaphragm and within the fundus of the stomach. Abdomen/Pelvis CT 02/11/18 01:48 IMPRESSION: 1. Findings compatible with likely partial small bowel obstruction with transition point in the distal or terminal ileum. No oral contrast identified in the distal small bowel or proceeding into the colon. This exam was performed according to our departmental dose-optimization program, which includes automated exposure control, adjustment of the mA and/or kV according to patient size and/or use of iterative reconstruction technique. Abdomen X-Ray 02/11/18 13:00 IMPRESSION: Ileus. No obstruction. Assessment & Plan - Diagnosis (2) Abdominal pain Qualifiers: Abdominal location: epigastric Qualified Code(s): R10.13 - Epigastric pain Is this a current diagnosis for this admission?: Yes - Plan Summary Plan Summary: EGD and medical management for now.
[2018-02-12] MEDS: ONDANSETRON HCL INJ/PF 4 MG/2 ML SDV IV PRN (21:31)
[2018-02-13] MEDS: HYDROMORPHONE HCL INJ/PF 2 MG/ML AMPULE IV PRN ×5 (03:38→21:48)
[2018-02-13] MEDS: NORMAL SALINE 1000 ML 1,000 ML IV PRN (08:02)
[2018-02-13] MEDS: LANSOPRAZOLE 30 MG TAB.RAP.DR PO SCH ×2 (08:02→16:01)
[2018-02-13] MEDS: ONDANSETRON HCL INJ/PF 4 MG/2 ML SDV IV PRN ×4 (08:02→21:48)
[2018-02-13] MEDS ORDERED: ACETAMINOPHEN 325 MG TABLET PO ONE (12:56)
--- NOTE | 2018-02-13 15:02 | PDOC PROGRESS REPORT ---
Subjective Progress Note for:: 02/13/18 Subjective:: No new issues On clear liquids - tolerating No nausea or vomiting. Reason For Visit: PEPTIC ULCER DISEASE Physical Exam Vital Signs: Temp Pulse Resp BP Pulse Ox 97.9 F 74 12 108/64 99 02/13/18 12:28 02/13/18 12:28 02/13/18 12:28 02/13/18 12:28 02/13/18 12:28 Intake & Output 02/12/18 02/13/18 02/14/18 06:59 06:59 06:59 Intake Total 1200 4214 Output Total 1750 3500 Balance -550 714 Weight 78.3 kg 78.4 kg Respiratory exam: PRESENT: clear to auscultation jennie. ABSENT: rales, rhonchi, wheezes Cardiovascular exam: PRESENT: +S1, +S2 GI/Abdominal exam: PRESENT: normal bowel sounds, soft, tenderness - epigastric area Neurological exam: PRESENT: alert, awake, oriented to person, oriented to place , oriented to time, oriented to situation, CN II-XII grossly intact. ABSENT: motor sensory deficit Results Laboratory Results: 02/12/18 04:08 02/12/18 04:08 Impressions: Renal Ultrasound 02/10/18 22:24 IMPRESSION: No acute findings. Transvaginal US 02/10/18 22:24 IMPRESSION: Uterus and ovaries are not identified. Trace free fluid. Chest X-Ray 02/11/18 00:00 IMPRESSION: NO ACUTE RADIOGRAPHIC FINDING IN THE CHEST. Distal NG tube beneath the diaphragm and within the fundus of the stomach. Abdomen/Pelvis CT 02/11/18 01:48 IMPRESSION: 1. Findings compatible with likely partial small bowel obstruction with transition point in the distal or terminal ileum. No oral contrast identified in the distal small bowel or proceeding into the colon. This exam was performed according to our departmental dose-optimization program, which includes automated exposure control, adjustment of the mA and/or kV according to patient size and/or use of iterative reconstruction technique. Abdomen X-Ray 02/11/18 13:00 IMPRESSION: Ileus. No obstruction. Assessment & Plan - Diagnosis (2) Abdominal pain Qualifiers: Abdominal location: epigastric Qualified Code(s): R10.13 - Epigastric pain Is this a current diagnosis for this admission?: Yes - Plan Summary Plan Summary: Will transfer care to hospitalists.
[2018-02-13] MEDS: METOCLOPRAMIDE HCL ORAL SOLN 10 MG/10 ML UDCUP PO SCH ×2 (16:01→21:49)
--- NOTE | 2018-02-13 20:46 | PDOC PROGRESS REPORT ---
Subjective Progress Note for:: 02/13/18 Subjective:: Assumed care of this patient from Surgery team. The patient is a 38 y.o. female who presented to the ED with abdominal pain, nausea, and vomiting. The patient has chronic abdominal pain that began in August of last year. She was treated with antibiotics for H.Pylori. Her most recent outpatient EGD showed a large gastroduodenal ulcer. Recent colonoscopy shows some ulcerations in the terminal ileum. CT Scan from 02/11/2018 shows some dilated small bowel loops. There was concern for small bowel obstruction, however an EGD done 02/12 only shows peptic ulcer disease - there was no sign of obstruction. The patient was turned over to the hospitalist service for medical management. Patient seen this morning on rounds. She is awake, resting in bed with a heating pad on her stomach. She states she has some mild periumbilical pain but she is comfortable now that she has a heating pad. The patient expressed her frustrations with her current situation. She feels that her N/V is cyclical, and she has an acute flare up almost every month. She doesn't always require hospitalization, but she has had frequent trips to the emergency department. Reason For Visit: PEPTIC ULCER DISEASE Physical Exam Vital Signs: Temp Pulse Resp BP Pulse Ox 98.3 F 79 17 107/58 L 99 02/13/18 19:30 02/13/18 19:30 02/13/18 19:30 02/13/18 19:30 02/13/18 19:30 Intake & Output 02/12/18 02/13/18 02/14/18 06:59 06:59 06:59 Intake Total 1200 4214 1200 Output Total 1750 3500 Balance -489 651 4999 Weight 78.3 kg 78.4 kg General appearance: PRESENT: no acute distress Head exam: PRESENT: atraumatic Eye exam: PRESENT: conjunctiva pink Mouth exam: PRESENT: moist Neck exam: PRESENT: full ROM Respiratory exam: PRESENT: clear to auscultation jennie, symmetrical, unlabored Cardiovascular exam: PRESENT: +S1, +S2 Pulses: PRESENT: normal radial pulses, normal dorsalis pedis pul GI/Abdominal exam: PRESENT: normal bowel sounds, soft, tenderness - periumbilical Rectal exam: PRESENT: deferred Extremities exam: PRESENT: full ROM Musculoskeletal exam: PRESENT: ambulatory, full ROM Results Laboratory Results: 02/12/18 04:08 02/12/18 04:08 Impressions: Renal Ultrasound 02/10/18 22:24 IMPRESSION: No acute findings. Transvaginal US 02/10/18 22:24 IMPRESSION: Uterus and ovaries are not identified. Trace free fluid. Chest X-Ray 02/11/18 00:00 IMPRESSION: NO ACUTE RADIOGRAPHIC FINDING IN THE CHEST. Distal NG tube beneath the diaphragm and within the fundus of the stomach. Abdomen/Pelvis CT 02/11/18 01:48 IMPRESSION: 1. Findings compatible with likely partial small bowel obstruction with transition point in the distal or terminal ileum. No oral contrast identified in the distal small bowel or proceeding into the colon. This exam was performed according to our departmental dose-optimization program, which includes automated exposure control, adjustment of the mA and/or kV according to patient size and/or use of iterative reconstruction technique. Abdomen X-Ray 02/11/18 13:00 IMPRESSION: Ileus. No obstruction. Status: Imported from PACS Assessment & Plan - Diagnosis (1) Nausea & vomiting Qualifiers: Vomiting type: unspecified Vomiting Intractability: unspecified Qualified Code(s): R11.2 - Nausea with vomiting, unspecified Is this a current diagnosis for this admission?: Yes Plan: Unclear etiology. EGD confirms there is no small bowel obstruction. Possibly gastroparesis - will initiate Reglan 5mg PO ACHS Continue PRN zofran (2) Gastric ulcer Qualifiers: Gastric ulcer chronicity: chronic Gastric ulcer complication status: unspecified whether hemorrhage or perforation present Qualified Code(s): K25.7 - Chronic gastric ulcer without hemorrhage or perforation Is this a current diagnosis for this admission?: Yes Plan: gastrodudenal ulcer seen on EGD Multiple ulcerations seen on colonoscopy in terminal ileum Will resume Carafate Dilaudid IV PRN pain Continue clear liquid diet - Time Time Spent with patient: 15-24 minutes Medications reviewed and adjusted accordingly: Yes Anticipated discharge: Home Within: within 48 hours - Inpatient Certification Based on my medical assessment, after consideration of the patient's comorbidities, presenting symptoms, or acuity I expect that the services needed warrant INPATIENT care.: Yes I certify that my determination is in accordance with my understanding of Medicare's requirements for reasonable and necessary INPATIENT services [42 CFR 412.3e].: Yes Medical Necessity: Risk of Complication if Not Cared For in Hospital - Plan Summary Plan Summary: Perla, the plan is to discharge the patient home and 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
[2018-02-14] MEDS: ACETAMINOPHEN 325 MG TABLET PO PRN ×2 (00:14→08:18)
[2018-02-14] MEDS: HYDROMORPHONE HCL INJ/PF 2 MG/ML AMPULE IV PRN ×5 (01:59→21:17)
[2018-02-14] MEDS: ONDANSETRON HCL INJ/PF 4 MG/2 ML SDV IV PRN ×4 (01:59→22:39)
[2018-02-14] MEDS: METOCLOPRAMIDE HCL ORAL SOLN 10 MG/10 ML UDCUP PO SCH ×2 (08:17→11:07)
[2018-02-14] MEDS: LANSOPRAZOLE 30 MG TAB.RAP.DR PO SCH (08:17)
[2018-02-14] MEDS: NORMAL SALINE 1000 ML 1,000 ML IV PRN (15:37)
--- NOTE | 2018-02-14 16:03 | PDOC PROGRESS REPORT ---
Subjective Progress Note for:: 02/14/18 Subjective:: Assumed care of this patient from Surgery team. The patient is a 38 y.o. female who presented to the ED with abdominal pain, nausea, and vomiting. The patient has chronic abdominal pain that began in August of last year. She was treated with antibiotics for H.Pylori. Her most recent outpatient EGD showed a large gastroduodenal ulcer. Recent colonoscopy shows some ulcerations in the terminal ileum. CT Scan from 02/11/2018 shows some dilated small bowel loops. There was concern for small bowel obstruction, however an EGD done 02/12 only shows peptic ulcer disease - there was no sign of obstruction. The patient was turned over to the hospitalist service for medical management. Patient seen this morning on rounds. She is awake, resting in bed with a heating pad on her stomach. She states she has mild postprandial abdominal pain that she was not experiencing over night. Reason For Visit: PEPTIC ULCER DISEASE Physical Exam Vital Signs: Temp Pulse Resp BP Pulse Ox 97.9 F 85 16 125/67 99 02/14/18 15:23 02/14/18 15:23 02/14/18 15:23 02/14/18 15:23 02/14/18 15:23 Intake & Output 02/13/18 02/14/18 02/15/18 06:59 06:59 06:59 Intake Total 4214 2190 Output Total 3500 1700 Balance 714 490 Weight 78.4 kg 80.6 kg General appearance: PRESENT: no acute distress Head exam: PRESENT: atraumatic Eye exam: PRESENT: conjunctiva pink Mouth exam: PRESENT: moist Teeth exam: PRESENT: poor dentation Neck exam: PRESENT: full ROM Respiratory exam: PRESENT: clear to auscultation jennie, symmetrical, unlabored Cardiovascular exam: PRESENT: +S1, +S2 Pulses: PRESENT: normal radial pulses, normal dorsalis pedis pul Vascular exam: PRESENT: normal capillary refill GI/Abdominal exam: PRESENT: normal bowel sounds, soft, tenderness. ABSENT: distended, firm Rectal exam: PRESENT: deferred Extremities exam: PRESENT: full ROM Musculoskeletal exam: PRESENT: ambulatory Neurological exam: PRESENT: alert, awake, oriented to person, oriented to place , oriented to time, oriented to situation Psychiatric exam: PRESENT: appropriate affect Results Laboratory Results: 02/12/18 04:08 02/12/18 04:08 Impressions: Renal Ultrasound 02/10/18 22:24 IMPRESSION: No acute findings. Transvaginal US 02/10/18 22:24 IMPRESSION: Uterus and ovaries are not identified. Trace free fluid. Chest X-Ray 02/11/18 00:00 IMPRESSION: NO ACUTE RADIOGRAPHIC FINDING IN THE CHEST. Distal NG tube beneath the diaphragm and within the fundus of the stomach. Abdomen/Pelvis CT 02/11/18 01:48 IMPRESSION: 1. Findings compatible with likely partial small bowel obstruction with transition point in the distal or terminal ileum. No oral contrast identified in the distal small bowel or proceeding into the colon. This exam was performed according to our departmental dose-optimization program, which includes automated exposure control, adjustment of the mA and/or kV according to patient size and/or use of iterative reconstruction technique. Abdomen X-Ray 02/11/18 13:00 IMPRESSION: Ileus. No obstruction. Status: Imported from PACS Assessment & Plan - Diagnosis (1) Nausea & vomiting Qualifiers: Vomiting type: unspecified Vomiting Intractability: unspecified Qualified Code(s): R11.2 - Nausea with vomiting, unspecified Is this a current diagnosis for this admission?: Yes Plan: Unclear etiology. EGD confirms there is no small bowel obstruction. Dr. Martínez told the patient she may have gastroparesis, attempted Reglan PO but the patient stated it didn't help her symptoms. Continue PRN zofran (2) Gastric ulcer Qualifiers: Gastric ulcer chronicity: chronic Gastric ulcer complication status: unspecified whether hemorrhage or perforation present Qualified Code(s): K25.7 - Chronic gastric ulcer without hemorrhage or perforation Is this a current diagnosis for this admission?: Yes Plan: gastrodudenal ulcer seen on EGD Multiple ulcerations seen on colonoscopy in terminal ileum Will resume Carafate Max dose protonix 80mg IV Q12 Dilaudid IV PRN pain Continue clear liquid diet - Time Time Spent with patient: 15-24 minutes Medications reviewed and adjusted accordingly: Yes Anticipated discharge: Home - Inpatient Certification Based on my medical assessment, after consideration of the patient's comorbidities, presenting symptoms, or acuity I expect that the services needed warrant INPATIENT care.: Yes I certify that my determination is in accordance with my understanding of Medicare's requirements for reasonable and necessary INPATIENT services [42 CFR 412.3e].: Yes Medical Necessity: Risk of Complication if Not Cared For in Hospital - Plan Summary Plan Summary: Plan to discharge home with close follow up to gastroenteritologist.
[2018-02-14] MEDS: MESALAMINE 400 MG CAPSULE.DR PO SCH (16:59)
[2018-02-14] MEDS: PANTOPRAZOLE SODIUM 80 MG in NORMAL SALINE 100 ML IV SCH (17:02)
[2018-02-14] MEDS ORDERED: PANTOPRAZOLE SODIUM 40 MG VIAL IV SCH (18:00)
[2018-02-14] MEDS: SUCRALFATE 1 GM TABLET PO SCH (21:21)
[2018-02-15] MEDS: HYDROMORPHONE HCL INJ/PF 2 MG/ML AMPULE IV PRN (01:30)
[2018-02-15] MEDS: NORMAL SALINE 1000 ML 1,000 ML IV PRN ×2 (02:34→14:11)
[2018-02-15] MEDS: PROMETHAZINE HCL INJ 25 MG/1 ML VIAL IV PRN ×2 (03:27→10:30)
[2018-02-15] MEDS: MORPHINE SULFATE 10 MG/ML INJ IV PRN ×2 (06:10→10:30)
[2018-02-15] MEDS: PANTOPRAZOLE SODIUM 80 MG in NORMAL SALINE 100 ML IV SCH ×2 (06:12→17:10)
[2018-02-15 07:03] LABS: HEMOGLOBIN 9.8 g/dL (12.0-15.5); MEAN CORPUSCULAR HEMOGLOBIN 32.7 pg (27.0-33.4); MEAN CORPUSCULAR HGB CONC 33.8 g/dL (32.0-36.0); MEAN CORPUSCULAR VOLUME 97 fl (80-97); PLATELET COUNT 140 10^3/uL (150-450); RED BLOOD COUNT 2.99 10^6/uL (3.72-5.28); RED CELL DISTRIBUTION WIDTH 15.3 % (11.5-14.0); WHITE BLOOD COUNT 3.1 10^3/uL (4.0-10.5)
[2018-02-15 07:18] LABS: BLOOD UREA NITROGEN 2 mg/dL (7-20); CALCIUM 8.2 mg/dL (8.4-10.2); CARBON DIOXIDE 31 mmol/L (22-30); GLUCOSE 84 mg/dL (75-110); PHOSPHORUS 3.8 mg/dL (2.5-4.5); POTASSIUM 3.2 mmol/L (3.6-5.0)
[2018-02-15 07:25] LABS: ANION GAP 5 (5-19); CHLORIDE 107 mmol/L (98-107); SODIUM 142.8 mmol/L (137-145)
[2018-02-15] MEDS: MAGNESIUM SULFATE/D5W 1 GM/100 ML RTUPB IV SCH ×2 (08:47→10:30)
[2018-02-15] MEDS: MESALAMINE 400 MG CAPSULE.DR PO SCH ×3 (10:30→17:10)
[2018-02-15] MEDS: SUCRALFATE 1 GM TABLET PO SCH (10:31)
[2018-02-15 12:03] LABS: HEMATOCRIT 29.5 % (36.0-47.0); HEMOGLOBIN 9.8 g/dL (12.0-15.5); MEAN CORPUSCULAR HEMOGLOBIN 32.3 pg (27.0-33.4); MEAN CORPUSCULAR HGB CONC 33.2 g/dL (32.0-36.0); MEAN CORPUSCULAR VOLUME 97 fl (80-97); PLATELET COUNT 159 10^3/uL (150-450); RED BLOOD COUNT 3.03 10^6/uL (3.72-5.28); RED CELL DISTRIBUTION WIDTH 15.2 % (11.5-14.0); WHITE BLOOD COUNT 3.6 10^3/uL (4.0-10.5)
[2018-02-15] MEDS: ONDANSETRON HCL INJ/PF 4 MG/2 ML SDV IV PRN (15:23)
[2018-02-15 17:59] VITALS: BP 95/43
--- NOTE | 2018-03-22 16:40 | PDOC DISCHARGE SUMMARY ---
General - Admit/Disc Date/PCP Admission Date/Primary Care Provider: 02/11/18 08:04 CYRUS GALLARDO MD Discharge Date: 02/16/18 - Discharge Diagnosis (1) Nausea & vomiting Is this a current diagnosis for this admission?: Yes Summary: unclear etiology. EGD confirmed that there was no bowel obstruction. Attempted Reglan, but pt stated it did NOT help her symptoms. PRN zofran for symptom relief (2) Gastric ulcer Is this a current diagnosis for this admission?: Yes Summary: gastroduodenal ulcer seen on EGD tx with carafate max dose protonix pain medication PRN clear liquid diet - Additional Information Resuscitation Status: Full Code Discharge Diet: As Tolerated Discharge Activity: Activity As Tolerated Prescriptions: Mesalamine [Asacol Sr 400 mg Capsule] 1,600 mg PO TID #90 capsule. Omeprazole 40 mg PO TID #90 capsule. Oxycodone HCl [Oxy-Ir 5 mg Tablet] 5 mg PO Q4HP PRN #30 tab PRN Reason: Oxycodone HCl [Oxycontin Sr 10 mg Tablet] 10 mg PO Q12 #60 tab.sr.12h Pantoprazole Sodium [Protonix] 40 mg PO DAILY #30 tablet. Promethazine HCl 12.5 mg PO Q6HP PRN #90 tablet PRN Reason: NAUSEA Home Medications: Sucralfate [Carafate 1 gm Tablet] 1 gm PO QID 02/11/18 Mesalamine [Asacol Sr 400 mg Capsule] 1,600 mg PO TID #90 capsule. 02/15/18 Omeprazole 40 mg PO TID #90 capsule. 02/15/18 Oxycodone HCl [Oxy-Ir 5 mg Tablet] 5 mg PO Q4HP PRN #30 tab 02/15/18 Oxycodone HCl [Oxycontin Sr 10 mg Tablet] 10 mg PO Q12 #60 tab.sr.12h 02/15/18 Pantoprazole Sodium [Protonix] 40 mg PO DAILY #30 tablet. 02/15/18 Promethazine HCl 12.5 mg PO Q6HP PRN #90 tablet 02/15/18 History of Present Illness History of Present Illness: AMBER DAMICO is a 38 year old female Hospital Course Hospital Course: Assumed care of this patient from Surgery team. The patient is a 38 y.o. female who presented to the ED with abdominal pain, nausea, and vomiting. The patient has chronic abdominal pain that began in August of last year. She was treated with antibiotics for H.Pylori. Her most recent outpatient EGD showed a large gastroduodenal ulcer. Recent colonoscopy shows some ulcerations in the terminal ileum. CT Scan from 02/11/2018 shows some dilated small bowel loops. There was concern for small bowel obstruction, however an EGD done 02/12 only shows peptic ulcer disease - there was no sign of obstruction. The patient was turned over to the hospitalist service for medical management. Since there was no surgical emergency and the patient's symptoms were relatively well controlled with medication, the decision was made to discharge her home. 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 She was sent home with prescriptions for promethazine, protonix, and Asacol. Physical Exam Vital Signs: Temp Pulse Resp BP Pulse Ox 99.0 F 70 16 95/43 L 96 02/15/18 17:53 02/15/18 17:53 02/15/18 17:53 02/15/18 17:53 02/15/18 17:53 General appearance: PRESENT: no acute distress, well-developed, well-nourished Head exam: PRESENT: atraumatic, normocephalic Eye exam: PRESENT: conjunctiva pink, EOMI, PERRLA. ABSENT: scleral icterus Ear exam: PRESENT: normal external ear exam Mouth exam: PRESENT: moist, tongue midline Neck exam: ABSENT: carotid bruit, JVD, lymphadenopathy, thyromegaly Respiratory exam: PRESENT: clear to auscultation jennie. ABSENT: rales, rhonchi, wheezes Cardiovascular exam: PRESENT: RRR. ABSENT: diastolic murmur, rubs, systolic murmur Pulses: PRESENT: normal dorsalis pedis pul Vascular exam: PRESENT: normal capillary refill GI/Abdominal exam: PRESENT: guarding, normal bowel sounds, soft, tenderness. ABSENT: distended, hernia, mass, Terrazas's sign, organolmegaly, rebound, rigid Rectal exam: PRESENT: deferred Extremities exam: PRESENT: full ROM. ABSENT: calf tenderness, clubbing, pedal edema Neurological exam: PRESENT: alert, awake, oriented to person, oriented to place , oriented to time, oriented to situation, CN II-XII grossly intact. ABSENT: motor sensory deficit Psychiatric exam: PRESENT: appropriate affect, normal mood. ABSENT: homicidal ideation, suicidal ideation Skin exam: PRESENT: dry, intact, warm. ABSENT: cyanosis, rash Results Laboratory Results: 02/15/18 11:55 02/15/18 06:29 Impressions: Renal Ultrasound 02/10/18 22:24 IMPRESSION: No acute findings. Transvaginal US 02/10/18 22:24 IMPRESSION: Uterus and ovaries are not identified. Trace free fluid. Chest X-Ray 02/11/18 00:00 IMPRESSION: NO ACUTE RADIOGRAPHIC FINDING IN THE CHEST. Distal NG tube beneath the diaphragm and within the fundus of the stomach. Abdomen/Pelvis CT 02/11/18 01:48 IMPRESSION: 1. Findings compatible with likely partial small bowel obstruction with transition point in the distal or terminal ileum. No oral contrast identified in the distal small bowel or proceeding into the colon. This exam was performed according to our departmental dose-optimization program, which includes automated exposure control, adjustment of the mA and/or kV according to patient size and/or use of iterative reconstruction technique. Abdomen X-Ray 02/11/18 13:00 IMPRESSION: Ileus. No obstruction. Status: Imported from PACS Qualifiers - * PATIENT BEING DISCHARGED WITH ANY OF THE FOLLOWING DIAGNOSIS: No
== END 2018-02-15 18:47 | disposition home or self-care (01) | DRG 384 ==
LOC: ER 19:05 → EH 02-11 08:04 → UNDOADMIN 02-11 08:04 → EH 02-11 10:33 → 4S 02-11 10:33
PROVIDERS: ADMIT Emergency Medicine; ATTEND Emergency Medicine
PROC: 0DB68ZX Excision of Stomach, Via Natural or Artificial Opening Endoscopic, Diagnostic (ICD-10-PCS; 2018-02-12)
PROC: 0DB98ZX Excision of Duodenum, Via Natural or Artificial Opening Endoscopic, Diagnostic (ICD-10-PCS; principal; 2018-02-12 15:30)
DX: K27.7 Chronic peptic ulcer, site unspecified, without hemorrhage or perforation (principal); E78.5 Hyperlipidemia, unspecified; I10 Essential (primary) hypertension; G43.909 Migraine, unspecified, not intractable, without status migrainosus; F32.9 Major depressive disorder, single episode, unspecified; F17.210 Nicotine dependence, cigarettes, uncomplicated; Z90.710 Acquired absence of both cervix and uterus; R11.2 Nausea with vomiting, unspecified; R10.13 Epigastric pain
CPT/HCPCS: 36415; 43239; 71045; 74019; 74176; 74177; 76770; 76830; 80048; 80053; 81001; 82941; 83690; 83735; 84100; 85025; 85027; 88305; 88342; 93976; 96361; 96372; 96374; 96375; 96376; 99285; J0171; J1170; J1610; J1885; J2250; J2270; J2310; J2405; J2550; J3010; J3475; J3490; J7030; S0164

== ENCOUNTER 2018-04-05 17:31 | Emergency (ER) | payer MEDICAID ==
[2018-04-05 18:09] VITALS: BP 109/73
[2018-04-05] MEDS ORDERED: METOCLOPRAMIDE HCL INJ/PF 10 MG/2 ML SDV IM ONE (18:39)
[2018-04-05] MEDS ORDERED: FENTANYL CITRATE INJ/PF 100 MCG/2 ML AMPUL IM ONE (18:39)
--- NOTE | 2018-04-05 18:41 | ER Document Report ---
ED Medical Screen (RME) - General Chief Complaint: Abdominal Pain Stated Complaint: VOMITING Time Seen by Provider: 04/05/18 18:36 Notes: RAPID MEDICAL EVALUATION DISCLOSURE I have seen this patient as part of a Rapid Medical Evaluation and, if applicable, placed any initially appropriate orders. The patient will be seen and fully evaluated, including a full history and physical exam, by a provider ( in Main ED or Fast Track) when a room becomes available. 38-year-old female PMH gastroparesis here with complaints of epigastric abdominal pain nausea vomiting diarrhea that started back up again 1 week ago. She has been unable to keep anything down. She has been trying Tylenol with minimal relief. She has not had worsening of the pain with anything in particular. EXAM CTAB Minimal epigastric TTP Mild left upper quadrant TTP TRAVEL OUTSIDE OF THE [place] IN LAST 30 DAYS: No - Related Data Allergies/Adverse Reactions: No Known Allergies Allergy (Verified 01/29/18 08:07) Past Medical History - Social History Chew tobacco use (# tins/day): No Frequency of alcohol use: None Drug Abuse: Marijuana - Past Medical History Cardiac Medical History: Reports: Hx Hypercholesterolemia, Hx Hypertension Neurological Medical History: Reports: Hx Migraine. Denies: Hx Seizures Renal/ Medical History: Denies: Hx Peritoneal Dialysis Psychiatric Medical History: Reports: Hx Depression Past Surgical History: Reports: Hx Section - X3, Hx Genitourinary Surgery - D&Cs x 2, Hx Hysterectomy - Immunizations Hx Diphtheria, Pertussis, Tetanus Vaccination: Yes History of Influenza Vaccine for 08/2017 - 01/2018 Season: Refused Physical Exam - Vital signs Vitals: Temp Pulse Resp BP Pulse Ox 98.4 F 104 H 18 109/73 98 04/05/18 18:07 04/05/18 18:07 04/05/18 18:07 04/05/18 18:07 04/05/18 18:07 Course - Vital Signs Vital signs: Temp Pulse Resp BP Pulse Ox 98.4 F 104 H 18 109/73 98 04/05/18 18:07 04/05/18 18:07 04/05/18 18:07 04/05/18 18:07 04/05/18 18:07
[2018-04-05 19:11] LABS: ABSOLUTE EOSINOPHILS # (AUTO) 0.1 10^3/uL (0.0-0.6); ABSOLUTE LYMPHOCYTES (AUTO) 1.5 10^3/uL (0.5-4.7); ABSOLUTE MONOCYTES (AUTO) 0.5 10^3/uL (0.1-1.4); ABSOLUTE NEUT (AUTO) 3.3 10^3/uL (1.7-8.2); BASOPHILS % (AUTO) 0.4 % (0-2); EOSINOPHILS % (AUTO) 1.1 % (0-6); HEMATOCRIT 41.5 % (36.0-47.0); HEMOGLOBIN 13.4 g/dL (12.0-15.5); LYMPHOCYTES % (AUTO) 28.6 % (13-45); MEAN CORPUSCULAR HEMOGLOBIN 30.8 pg (27.0-33.4); MEAN CORPUSCULAR HGB CONC 32.4 g/dL (32.0-36.0); MEAN CORPUSCULAR VOLUME 95 fl (80-97); MONOCYTES % (AUTO) 8.5 % (3-13); PLATELET COUNT 245 10^3/uL (150-450); RED BLOOD COUNT 4.36 10^6/uL (3.72-5.28); RED CELL DISTRIBUTION WIDTH 18.6 % (11.5-14.0); SEGMENTED NEUTROPHILS % (AUTO) 61.4 % (42-78); TOTAL CELLS COUNTED % (AUTO) 100 %; WHITE BLOOD COUNT 5.3 10^3/uL (4.0-10.5)
[2018-04-05 19:28] LABS: ALANINE AMINOTRANSFERASE 23 U/L (9-52); ALBUMIN 4.3 g/dL (3.5-5.0); ALKALINE PHOSPHATASE 39 U/L (38-126); ANION GAP 14 (5-19); ASPARTATE AMINO TRANSFERASE 15 U/L (14-36); BILIRUBIN,DIRECT 0.3 mg/dL (0.0-0.4); BILIRUBIN,TOTAL 0.3 mg/dL (0.2-1.3); BLOOD UREA NITROGEN 11 mg/dL (7-20); CALCIUM 9.9 mg/dL (8.4-10.2); CARBON DIOXIDE 24 mmol/L (22-30); CHLORIDE 103 mmol/L (98-107); GLUCOSE 97 mg/dL (75-110); LIPASE 82.1 U/L (23-300); POTASSIUM 4.5 mmol/L (3.6-5.0); TOTAL PROTEIN 7.3 g/dL (6.3-8.2)
== END 2018-04-05 18:37 | disposition left against medical advice (07) ==
LOC: ER 17:31
DX: R10.13 Epigastric pain (principal); R11.2 Nausea with vomiting, unspecified; R19.7 Diarrhea, unspecified; R10.812 Left upper quadrant abdominal tenderness; R10.816 Epigastric abdominal tenderness; F12.10 Cannabis abuse, uncomplicated; I10 Essential (primary) hypertension; Z53.20 Procedure and treatment not carried out because of patient's decision for unspecified reasons
CPT/HCPCS: 99281; 96372; 36415; 83690; 85025; 80053; J3010; J2765

== ENCOUNTER 2018-04-06 08:24 | Emergency (ER) | payer SELFPAY ==
[2018-04-06] MEDS ORDERED: NORMAL SALINE 1000 ML 1,000 ML IV ONE ×2 (09:25→11:24)
[2018-04-06] MEDS ORDERED: METOCLOPRAMIDE HCL INJ/PF 10 MG/2 ML SDV IV ONE (09:25)
[2018-04-06] MEDS ORDERED: DIPHENHYDRAMINE HCL 50 MG/ML VIAL IV ONE (09:25)
[2018-04-06] MEDS ORDERED: DICYCLOMINE HCL INJ 20 MG/2 ML AMPULE IM ONE (09:25)
[2018-04-06 09:40] LABS: APPEARANCE,URINE CLOUDY; BILIRUBIN,URINE NEGATIVE (NEGATIVE); COLOR,URINE YELLOW; GLUCOSE, URINE NEGATIVE (NEGATIVE); KETONES,URINE TRACE mg/dL (NEGATIVE); LEUKOCYTE ESTERASE,URINE LARGE (NEGATIVE); NITRITE,URINE POSITIVE (NEGATIVE); PROTEIN,URINE 30 mg/dL (NEGATIVE); URINE SPECIFIC GRAVITY 1.034; UROBILINOGEN,URINE NEGATIVE mg/dL (<2.0)
[2018-04-06 09:52] LABS: ABSOLUTE LYMPHOCYTES (AUTO) 1.9 10^3/uL (0.5-4.7); ABSOLUTE MONOCYTES (AUTO) 0.4 10^3/uL (0.1-1.4); ABSOLUTE NEUT (AUTO) 4.7 10^3/uL (1.7-8.2); BASOPHILS % (AUTO) 0.4 % (0-2); EOSINOPHILS % (AUTO) 0.6 % (0-6); HEMATOCRIT 42.1 % (36.0-47.0); HEMOGLOBIN 13.8 g/dL (12.0-15.5); LYMPHOCYTES % (AUTO) 26.5 % (13-45); MEAN CORPUSCULAR HEMOGLOBIN 31.2 pg (27.0-33.4); MEAN CORPUSCULAR HGB CONC 32.9 g/dL (32.0-36.0); MEAN CORPUSCULAR VOLUME 95 fl (80-97); MONOCYTES % (AUTO) 6.1 % (3-13); PLATELET COUNT 242 10^3/uL (150-450); RED BLOOD COUNT 4.44 10^6/uL (3.72-5.28); RED CELL DISTRIBUTION WIDTH 18.7 % (11.5-14.0); SEGMENTED NEUTROPHILS % (AUTO) 66.4 % (42-78); TOTAL CELLS COUNTED % (AUTO) 100 %; WHITE BLOOD COUNT 7.1 10^3/uL (4.0-10.5)
--- NOTE | 2018-04-06 10:05 | RADIOLOGY REPORT (SQ) ---
EXAM DESCRIPTION: ACUTE ABDOMEN SERIES COMPLETED DATE/TIME: 04/06/2018 9:57 am REASON FOR STUDY: hx of uclers abd pain COMPARISON: None. NUMBER OF VIEWS: Three views. TECHNIQUE: PA chest, supine abdomen and upright/decubitus abdomen radiographic images acquired. LIMITATIONS: None. FINDINGS: CHEST: Lungs clear of infiltrates. FREE AIR: None. No abnormal gas collections. BOWEL GAS PATTERN: Few scattered small bowel loops. . No distended large or small bowel loops. CALCIFICATIONS: No suspicious calcifications. HARDWARE: None in the abdomen. SOFT TISSUES: No gross mass or suggestion of organomegaly. BONES: No acute fracture. No worrisome bone lesions. OTHER: No other significant finding. IMPRESSION: NONSPECIFIC BOWEL GAS PATTERN WITHOUT EVIDENCE FOR OBSTRUCTION. TECHNICAL DOCUMENTATION: JOB ID: [id number] [employer]- All Rights Reserved Reading location - IP/workstation name: [email or web address]
[2018-04-06] MEDS ORDERED: CEFTRIAXONE 1 GM/D5W RTU 1 GM/50 ML RTUPB IV ONE (10:10)
[2018-04-06] MEDS ORDERED: FAMOTIDINE INJ/PF 20 MG/2 ML SDV IV ONE (10:28)
[2018-04-06] MEDS ORDERED: HYDROMORPHONE HCL INJ/PF 2 MG/ML AMPULE IV ONE (10:28)
[2018-04-06] MEDS ORDERED: ONDANSETRON HCL INJ/PF 4 MG/2 ML SDV IV ONE (10:31)
[2018-04-06 11:00] LABS: ALANINE AMINOTRANSFERASE 21 U/L (9-52); ALBUMIN 4.1 g/dL (3.5-5.0); ALKALINE PHOSPHATASE 39 U/L (38-126); ANION GAP 12 (5-19); ASPARTATE AMINO TRANSFERASE 13 U/L (14-36); BILIRUBIN,DIRECT 0.3 mg/dL (0.0-0.4); BILIRUBIN,TOTAL 0.4 mg/dL (0.2-1.3); BLOOD UREA NITROGEN 12 mg/dL (7-20); CALCIUM 9.8 mg/dL (8.4-10.2); CARBON DIOXIDE 24 mmol/L (22-30); CHLORIDE 104 mmol/L (98-107); GLUCOSE 84 mg/dL (75-110); LIPASE 58.6 U/L (23-300); POTASSIUM 4.2 mmol/L (3.6-5.0); SODIUM 140.4 mmol/L (137-145); TOTAL PROTEIN 7.1 g/dL (6.3-8.2)
[2018-04-06] MEDS ORDERED: OXYCODONE-ACETAMINOPHEN 5-325 MG TABLET PO ONE (12:03)
--- NOTE | 2018-04-06 13:07 | ER Document Report ---
ED General - General Chief Complaint: Nausea/Vomiting Stated Complaint: VOMITING, DIARRHEA Time Seen by Provider: 04/06/18 09:02 TRAVEL OUTSIDE OF THE [place] IN LAST 30 DAYS: No - HPI Patient complains to provider of: Nausea vomiting diarrhea left upper quadrant pain Notes: Patient coming in for evaluation of left upper quadrant abdominal pain nausea vomiting diarrhea. Patient has a history of significant gastritis and peptic ulcer disease. Patient had a recent EGD performed and march. Patient states for the last 24-12 hours she has not been taking her medications because of nausea and vomiting. Patient states she has been using her Phenergan p.o. however is not been of any benefit. Patient denies any fevers or chills. Patient otherwise is resting company upon my evaluation complains of some left upper quadrant abdominal pain patient denies any trauma. Patient states she has scheduled for another EGD coming up on Thursday. - Related Data Allergies/Adverse Reactions: No Known Allergies Allergy (Verified 01/29/18 08:07) Past Medical History - Social History Smoking Status: Current Every Day Smoker Chew tobacco use (# tins/day): No Frequency of alcohol use: None Drug Abuse: None Family History: Reviewed & Not Pertinent, Other Patient has suicidal ideation: No Patient has homicidal ideation: No - Past Medical History Cardiac Medical History: Reports: Hx Hypercholesterolemia, Hx Hypertension Neurological Medical History: Reports: Hx Migraine. Denies: Hx Seizures Renal/ Medical History: Denies: Hx Peritoneal Dialysis Psychiatric Medical History: Reports: Hx Depression Past Surgical History: Reports: Hx Section - X3, Hx Genitourinary Surgery - D&Cs x 2, Hx Hysterectomy - Immunizations Hx Diphtheria, Pertussis, Tetanus Vaccination: Yes Review of Systems - Review of Systems Constitutional: No symptoms reported EENT: No symptoms reported Cardiovascular: No symptoms reported Respiratory: No symptoms reported Gastrointestinal: Abdominal pain, Diarrhea, Nausea, Vomiting Genitourinary: No symptoms reported Female Genitourinary: No symptoms reported Musculoskeletal: No symptoms reported Skin: No symptoms reported Hematologic/Lymphatic: No symptoms reported Neurological/Psychological: No symptoms reported -: Yes All other systems reviewed and negative Physical Exam - Vital signs Vitals: Temp Pulse Resp BP Pulse Ox 99.0 F 103 H 20 122/82 98 04/06/18 08:31 04/06/18 08:31 04/06/18 08:31 04/06/18 08:31 04/06/18 08:31 Interpretation: Normal - General General appearance: Appears well, Alert - HEENT Head: Normocephalic, Atraumatic Eyes: Normal Pupils: PERRL - Respiratory Respiratory status: No respiratory distress Chest status: Nontender Breath sounds: Normal Chest palpation: Normal - Cardiovascular Rhythm: Regular Heart sounds: Normal auscultation Murmur: No - Abdominal Inspection: Normal Distension: No distension Bowel sounds: Normal Tenderness: Tender - Diffuse mild tenderness left upper quadrant epigastric right upper quadrant regions. No: McBurney's point, Terrazas's sign, Guarding, Rebound Organomegaly: No organomegaly - Back Back: Normal, Nontender - Extremities General upper extremity: Normal inspection, Nontender, Normal color, Normal ROM , Normal temperature General lower extremity: Normal inspection, Nontender, Normal color, Normal ROM , Normal temperature, Normal weight bearing. No: Halie's sign - Neurological Neuro grossly intact: Yes Cognition: Normal Orientation: AAOx4 [place] Coma Scale Eye Opening: Spontaneous [place] Coma Scale Verbal: Oriented Radha Coma Scale Motor: Obeys Commands [place] Coma Scale Total: 15 Speech: Normal Motor strength normal: LUE, RUE, LLE, RLE Sensory: Normal - Psychological Associated symptoms: Normal affect, Normal mood - Skin Skin Temperature: Warm Skin Moisture: Dry Skin Color: Normal Course - Re-evaluation Re-evalutation: 04/06/18 14:19 Patient laboratory studies not show any significant pathology urinalysis does show some signs of dehydration along with UTI. Possible etiology of exacerbation of the patient's symptoms. Patient was given IV dose of antibiotics pain medication here patient was able tolerate oral pain medication patient was able to hold this down along with a glass of water for approximately 1 hour. Vital signs are to be stable I encouraged patient to continue her home medications follow-up with your primary care physician return to ER symptoms worsen - Vital Signs Vital signs: Temp Pulse Resp BP Pulse Ox 97.9 F 82 16 101/60 100 04/06/18 13:09 04/06/18 13:09 04/06/18 13:09 04/06/18 13:09 04/06/18 13:09 - Laboratory Result Diagrams: 04/06/18 09:40 04/06/18 10:24 Laboratory results interpreted by me: 04/06/18 04/06/18 04/06/18 09:03 09:40 10:24 RDW 18.7 H AST 13 L Urine Protein 30 H Urine Ketones TRACE H Urine Blood SMALL H Urine Nitrite POSITIVE H Ur Leukocyte Esterase LARGE H Discharge - Discharge Clinical Impression: Peptic ulcer disease Abdominal pain Qualifiers: Abdominal location: left upper quadrant Qualified Code(s): R10.12 - Left upper quadrant pain Nausea & vomiting Qualifiers: Vomiting type: unspecified Vomiting Intractability: unspecified Qualified Code( s): R11.2 - Nausea with vomiting, unspecified UTI (urinary tract infection) Qualifiers: Urinary tract infection type: site unspecified Hematuria presence: without hematuria Qualified Code(s): N39.0 - Urinary tract infection, site not specified Condition: Fair Disposition: HOME, SELF-CARE Instructions: Abdominal Pain ([facility]), Ulcer ([facility]), Urinary Tract Infection ([facility]) Additional Instructions: Your laboratory studies today show signs of urinary tract infection which can be exacerbating some of your underlying GI issues and causing nausea vomiting. Please take the antibiotic as prescribed. Please take nausea medication as prescribed may also be take the pain medication as prescribed. Make sure he follow-up with your primary care physician return to ER symptoms worsen. Prescriptions: Hydrocodone Bit/Acetaminophen [Hydrocodon-Acetaminophen 5-325] 1 each PO Q6 #20 tablet Ondansetron [Zofran Odt] 4 mg PO Q6 PRN #30 tab.rapdis PRN Reason: For Nausea/Vomiting Promethazine HCl [Phenergan 25 mg Tablet] 25 mg PO Q6 #20 tablet Sulfamethoxazole/Trimethoprim [Bactrim Ds Tablet] 1 each PO BID #20 tablet Forms: Return to Work
[2018-04-06 13:11] VITALS: BP 101/60
== END 2018-04-06 13:17 | disposition home or self-care (01) ==
LOC: ER 08:24
DX: K27.9 Peptic ulcer, site unspecified, unspecified as acute or chronic, without hemorrhage or perforation (principal); N39.0 Urinary tract infection, site not specified; R11.2 Nausea with vomiting, unspecified; R19.7 Diarrhea, unspecified; R10.12 Left upper quadrant pain; F17.200 Nicotine dependence, unspecified, uncomplicated; E78.00 Pure hypercholesterolemia, unspecified; I10 Essential (primary) hypertension; Z90.710 Acquired absence of both cervix and uterus
CPT/HCPCS: 99284; 96372; 96361; 96375; 96365; 36415; 87086; 83690; 85025; 87088; 80053; 81001; 87186; 74022; J0500; J1200; J2765; J1170; J2405; J7030; S0028; J0696

== ENCOUNTER 2018-05-09 15:16 | Emergency (ER) | payer SELFPAY ==
[2018-05-09] MEDS ORDERED: HYDROMORPHONE HCL INJ/PF 2 MG/ML AMPULE IV ONE (16:29)
[2018-05-09] MEDS ORDERED: METOCLOPRAMIDE HCL INJ/PF 10 MG/2 ML SDV IV ONE (16:29)
--- NOTE | 2018-05-09 16:32 | ER Document Report ---
ED Medical Screen (RME) - General Chief Complaint: Abdominal Pain Stated Complaint: ABDOMINAL PAIN Time Seen by Provider: 05/09/18 16:21 Mode of Arrival: Ambulatory Information source: Patient Notes: 38-year-old female with history of gastroparesis, chronic abdominal pain, hysterectomy presents with complaint of abdominal pain that worsened 5 days prior to arrival. Pain is located in the epigastric area described as a stabbing pain with associated nausea, vomiting and decreased appetite. Patient does follow with GI. But has been unable to fill any recommended testing due to a loss of insurance. I have greeted and performed a rapid initial assessment of this patient. A comprehensive ED assessment and evaluation of the patient including analysis of labs and imaging ( if obtained) and completion of medical decision making will be conducted by an additional ED provider. PHYSICAL EXAMINATION: GENERAL: Appears to be in pain HEAD: Atraumatic, normocephalic. EYES: Pupils equal round extraocular movements intact, conjunctiva are normal. ENT: Nares patent NECK: Normal range of motion LUNGS: No respiratory distress Musculoskeletal: Normal range of motion NEUROLOGICAL: Normal speech, normal gait. PSYCH: Normal mood, normal affect. SKIN: Warm, Dry, normal turgor, no rashes or lesions noted. TRAVEL OUTSIDE OF THE [place] IN LAST 30 DAYS: No - Related Data Allergies/Adverse Reactions: No Known Allergies Allergy (Verified 01/29/18 08:07) Past Medical History - Social History Chew tobacco use (# tins/day): No Frequency of alcohol use: None Drug Abuse: None - Past Medical History Cardiac Medical History: Reports: Hx Hypercholesterolemia, Hx Hypertension Neurological Medical History: Reports: Hx Migraine. Denies: Hx Seizures Renal/ Medical History: Denies: Hx Peritoneal Dialysis Psychiatric Medical History: Reports: Hx Depression Past Surgical History: Reports: Hx Section - X3, Hx Genitourinary Surgery - D&Cs x 2, Hx Hysterectomy - Immunizations Hx Diphtheria, Pertussis, Tetanus Vaccination: Yes History of Influenza Vaccine for 08/2017 - 01/2018 Season: Refused Physical Exam - Vital signs Vitals: Temp Pulse Resp BP Pulse Ox 98.6 F 101 H 24 H 105/62 98 05/09/18 15:26 05/09/18 15:26 05/09/18 15:26 05/09/18 15:26 05/09/18 15:26 Course - Vital Signs Vital signs: Temp Pulse Resp BP Pulse Ox 98.6 F 101 H 24 H 105/62 98 05/09/18 15:26 05/09/18 15:26 05/09/18 15:26 05/09/18 15:26 05/09/18 15:26
[2018-05-09 17:22] LABS: ABSOLUTE EOSINOPHILS # (AUTO) 0.1 10^3/uL (0.0-0.6); ABSOLUTE LYMPHOCYTES (AUTO) 1.1 10^3/uL (0.5-4.7); ABSOLUTE MONOCYTES (AUTO) 0.3 10^3/uL (0.1-1.4); ABSOLUTE NEUT (AUTO) 3.2 10^3/uL (1.7-8.2); BASOPHILS % (AUTO) 0.8 % (0-2); EOSINOPHILS % (AUTO) 2.5 % (0-6); HEMOGLOBIN 13.4 g/dL (12.0-15.5); LYMPHOCYTES % (AUTO) 23.2 % (13-45); MEAN CORPUSCULAR HEMOGLOBIN 32.1 pg (27.0-33.4); MEAN CORPUSCULAR HGB CONC 32.7 g/dL (32.0-36.0); MEAN CORPUSCULAR VOLUME 98 fl (80-97); MONOCYTES % (AUTO) 6.5 % (3-13); PLATELET COUNT 284 10^3/uL (150-450); RED BLOOD COUNT 4.18 10^6/uL (3.72-5.28); RED CELL DISTRIBUTION WIDTH 19.4 % (11.5-14.0); TOTAL CELLS COUNTED % (AUTO) 100 %; WHITE BLOOD COUNT 4.8 10^3/uL (4.0-10.5)
[2018-05-09 17:41] LABS: ALANINE AMINOTRANSFERASE 30 U/L (9-52); ALBUMIN 4.9 g/dL (3.5-5.0); ALKALINE PHOSPHATASE 45 U/L (38-126); ANION GAP 16 (5-19); ASPARTATE AMINO TRANSFERASE 29 U/L (14-36); BILIRUBIN,DIRECT 0.4 mg/dL (0.0-0.4); BILIRUBIN,TOTAL 0.4 mg/dL (0.2-1.3); BLOOD UREA NITROGEN 20 mg/dL (7-20); CALCIUM 10.2 mg/dL (8.4-10.2); CARBON DIOXIDE 18 mmol/L (22-30); CHLORIDE 108 mmol/L (98-107); GLUCOSE 84 mg/dL (75-110); LIPASE 94.7 U/L (23-300); SODIUM 142.2 mmol/L (137-145); TOTAL PROTEIN 8.2 g/dL (6.3-8.2)
[2018-05-09 17:42] LABS: APPEARANCE,URINE CLEAR; BILIRUBIN,URINE NEGATIVE (NEGATIVE); COLOR,URINE YELLOW; GLUCOSE, URINE NEGATIVE (NEGATIVE); KETONES,URINE TRACE mg/dL (NEGATIVE); LEUKOCYTE ESTERASE,URINE SMALL (NEGATIVE); NITRITE,URINE NEGATIVE (NEGATIVE); PROTEIN,URINE NEGATIVE (NEGATIVE); URINE SPECIFIC GRAVITY 1.046; UROBILINOGEN,URINE NEGATIVE mg/dL (<2.0)
[2018-05-09] MEDS ORDERED: ONDANSETRON 4 MG TAB.RAPDIS PO ONE (18:10)
[2018-05-09] MEDS ORDERED: OXYCODONE-ACETAMINOPHEN 5-325 MG TABLET PO ONE (18:10)
--- NOTE | 2018-05-09 18:22 | ER Document Report ---
ED General - General Chief Complaint: Abdominal Pain Stated Complaint: ABDOMINAL PAIN Time Seen by Provider: 05/09/18 16:21 Mode of Arrival: Ambulatory Notes: Patient says that she is having abdominal pain and nausea and vomiting. She has a diagnosis of intermittent gastroparesis and used to see Dr. Martínez locally , but no longer has health insurance so she cannot see him. She has been diagnosed also with peptic ulcer disease. Her pain is primarily located in the epigastric region of the abdomen. She does not have any pain medication at home. Her current symptoms began on Thursday and got worse last night. She is having both nausea and vomiting well as difficulty with her bowel movements. Has never been diagnosed with IBS, however. No fever. No congestion or chest symptoms. No UTI symptoms. Patient's only abdominal surgery were C- sections. She has had 4 upper endoscopies, finding ulcers and 1 colonoscopy with uncertain findings. Patient also is complaining of sores that are breaking out on her breasts. They are using and have been going on for about a month. She denies picking at the area or scratching it or anything like her bra strap rubbing on the areas. Has not noted any fever. Never had this before. does not have similar lesions. TRAVEL OUTSIDE OF THE [place] IN LAST 30 DAYS: No - Related Data Allergies/Adverse Reactions: No Known Allergies Allergy (Verified 01/29/18 08:07) Past Medical History - General Information source: Patient - Social History Smoking Status: Current Every Day Smoker Chew tobacco use (# tins/day): No Frequency of alcohol use: None Drug Abuse: None Family History: Reviewed & Not Pertinent, Other Patient has suicidal ideation: No Patient has homicidal ideation: No - Past Medical History Cardiac Medical History: Reports: Hx Hypercholesterolemia, Hx Hypertension Neurological Medical History: Reports: Hx Migraine Endocrine Medical History: Denies: Hx Diabetes Mellitus Type 1, Hx Diabetes Mellitus Type 2 GI Medical History: Reports: Hx Ulcer, Other - History of gastroparesis.. Denies: Hx Irritable Bowel Psychiatric Medical History: Reports: Hx Depression Past Surgical History: Reports: Hx Section - X3, Hx Genitourinary Surgery - D&Cs x 2, Hx Hysterectomy - Immunizations Hx Diphtheria, Pertussis, Tetanus Vaccination: Yes Review of Systems - Review of Systems Notes: REVIEW OF SYSTEMS: CONSTITUTIONAL : Denies fever. EENT: Denies eye, ear, nose or mouth or throat pain or other symptoms. CARDIOVASCULAR: Denies chest pain. RESPIRATORY: Denies cough, chest congestion, or shortness of breath. GASTROINTESTINAL: See HPI.. GENITOURINARY: Denies difficulty or painful urinating, urinary frequency, blood in urine. MUSCULOSKELETAL: Denies back or neck pain. Denies joint pain or swelling. SKIN: Patient has a few excoriations on both breasts. See HPI. NEUROLOGICAL: Denies LOC or altered mental status. Denies headache. Denies sensory loss or motor deficits. ALL OTHER SYSTEMS REVIEWED AND NEGATIVE. Physical Exam - Vital signs Vitals: Temp Pulse Resp BP Pulse Ox 98.6 F 101 H 24 H 105/62 98 05/09/18 15:26 05/09/18 15:26 05/09/18 15:26 05/09/18 15:26 05/09/18 15:26 Interpretation: Normal - Notes Notes: PHYSICAL EXAMINATION: GENERAL: Well-appearing, in no acute distress. Vital signs are all essentially normal. HEAD: Atraumatic, normocephalic. EYES: Pupils equal round and reactive to light, extraocular movements intact. ENT: oropharynx clear without exudates. Moist mucous membranes. NECK: Normal range of motion, supple. LUNGS: Breath sounds clear and equal bilaterally. HEART: Regular rate and rhythm without murmurs. ABDOMEN: Soft, mild diffuse tenderness. Definitely no guarding or rebound. No masses. BACK: No tenderness throughout entire back. EXTREMITIES: Normal range of motion without pain. NEUROLOGICAL: Normal speech, normal gait. Normal sensory, motor, and reflex exams. Awake, alert, and oriented x3. Cranial nerves normal. PSYCH: Normal mood, normal affect. SKIN: Patient has a few excoriations on both breasts. The freshest, newest ones are erythematous and may have a very slight oozing from them, although there does not appear to be gross pus present. The old ones that are healed have left some discoloration that look like scarring. These lesions are very superficial and do not appear to have any fluctuance or fluid collection. I doubt that they are due to MRSA. I have cultured these lesions and told the patient that I would call her if they require antibiotic treatment. Course - Vital Signs Vital signs: Temp Pulse Resp BP Pulse Ox 98.7 F 99 18 110/70 99 05/09/18 18:30 05/09/18 18:30 05/09/18 18:30 05/09/18 18:30 05/09/18 18:30 - Laboratory Result Diagrams: 05/09/18 17:10 05/09/18 17:10 Laboratory results interpreted by me: 05/09/18 05/09/18 05/09/18 16:50 17:10 17:10 MCV 98 H RDW 19.4 H Chloride 108 H Carbon Dioxide 18 L Urine Ketones TRACE H Ur Leukocyte Esterase SMALL H Discharge - Discharge Clinical Impression: Gastroparesis, Abdominal pain with vomiting, Skin lesion of breast Condition: Stable Disposition: HOME, SELF-CARE Additional Instructions: ABDOMINAL PAIN: There are many causes of abdominal pain. Pain can mean a serious problem requiring surgery (such as appendicitis). It can also be an innocent problem that goes away on its own (such as a viral infection). Often, time must pass to determine the cause of pain. The physician does not feel that hospitalization is necessary, at present. Things may change within the next 24 hours. Call the doctor or come back for re- examination if any problems occur, such as: (1) Pain that becomes more severe, steady, or becomes concentrated in one specific area. Also, pain that is more severe with movement or coughing. (2) Vomiting that persists or becomes more frequent. (3) Blood in the vomitus, urine, or bowel movements. Blood in the stool may have a tarry or black appearance. (4) Shaking chills or fever greater than 100 degrees F. (5) The abdomen becomes more distended or swollen. (6) Bowel movements cease. (7) Failure to improve as expected. VOMITING: Vomiting (or nausea without vomiting) can be caused by many other different problems. It can mean that something's wrong with the stomach, such as ulcers or inflammation or the intestinal tract, such as appendicitis. But it can also be a symptom of a problem that has nothing to do with the stomach or intestines. Vomiting is common with severe headaches, earaches, tonsillitis, and kidney infections, etc. We see it with pneumonia or heart attacks. Drugs can cause nausea and vomiting. Many abdominal problems cause vomiting; for example, gallstones, kidney stones, pancreatitis, and intestinal obstruction ( blocked bowels). In most cases, curing the vomiting depends on fixing the problem that caused it. For temporary relief, we may use an anti-nausea medicine. For home use, we can prescribe suppositories, chewable pills, pills that dissolve in the mouth, or liquid anti-nausea drugs. If the vomiting seems to be caused by a problem in the stomach, acid-suppressing drugs may be prescribed as well. It's important to avoid dehydration. Sip small amounts of clear liquids ( soft drinks, tea, broth, etc) . Try to take fluids frequently even if you are vomiting to prevent dehydration. Take increasing amounts of fluid and when liquids are being consumed successfully, advance to small amounts of bland food (toast, soups, mashed potatoes, etc.) until you are able to resume a regular diet. Avoid aspirin, tobacco, and alcohol. If the vomiting worsens, if the problem that's making you vomit worsens, or if there's evidence of bleeding in the stomach (such as black, tarry stool, or bloody or black vomit), you should return immediately. Also, return if abdominal pain worsens or becomes localized to one area or you develop high fever. Call your doctor if you aren't improved in 24 hours. NORMAL EXAM AND WORKUP: At this time, your examination and workup show no significant abnormality. No significant abnormal physical findings are noted. All laboratory, EKG, and imaging (x-ray, CT scans, ultrasound) studies that were ordered show no significant abnormality. Although your examination and all studies that were ordered showed no significant abnormal finding, there are no examinations and no studies that are 100% accurate. There is always the possibility that some abnormality could exist and not be detected with physical examination or within the limits and capabilities of laboratory and other studies. You should return or follow up as you were instructed on your visit today for further evaluation if your symptoms do not resolve. PAIN MEDICATION INJECTION: You have received an injection of a pain medication. You should experience significant pain relief within 45 minutes. This drug is a narcotic - - it will impair your judgement, slow your reaction time and make you sleepy ( as well as relieve your pain). Narcotics also can cause nausea. You should not drive, work with machinery, or perform any task requiring mental alertness until all effects of the medication are gone -- six to eight hours. Do not take any alcohol, or sedatives, and do not take any other medication without checking with your physician. ANTINAUSEA MEDICATION: You have been given a medication to suppress nausea and vomiting. This type of medication can be given as a shot, pill, or suppository. It will usually last for many hours. Pills and shots usually last six to eight hours, suppositories last about 12 hours. For the typical illness, only one or two doses of the medication may be necessary. Mild lightheadedness may occur. This type of medicine can cause drowsiness. Do not drive or operate dangerous machinery while under its influence. Do not mix with alcohol. See your doctor at once if you have muscle spasms or tightness, or uncontrollable motions (particularly of the neck, mouth, or jaw). Persistent vomiting or severe lightheadedness should also be evaluated by the physician. ORAL NARCOTIC MEDICATION: You have been given a prescription for pain control. This medication is a narcotic. It's best taken with food, as nausea can result if taken on an empty stomach. Don't operate machinery or drive within six hours of taking this medication. Do not combine this medicine with alcohol, or with any medication which can cause sedation (such as cold tablets or sleeping pills) unless you get permission from the physician. Narcotics tend to cause constipation. If possible, drink plenty of fluids and eat a diet high in fiber and fruits. FOLLOW-UP CARE: If you have been referred to a physician for follow-up care, call the physician s office for an appointment as you were instructed or within the next two days. If you experience worsening or a significant change in your symptoms, notify the physician immediately or return to the Emergency Department at any time for re-evaluation. We have cultured the sores on your breasts to see if any bacteria grow from the lesions. We should have some results in the next day or 2. I will call you if there is any bacterial growth that needs to be treated with an antibiotic. For now, gently wash the areas with the sores on her breasts with mild soap and water and then apply bacitracin ointment. Follow this procedure at least 2 or 3 times a day, more if you wish. Prescriptions: Ondansetron HCl [Zofran 4 mg Tablet] 1 - 2 tab PO Q4HP PRN #15 tablet PRN Reason: Oxycodone HCl/Acetaminophen [Percocet 5-325 mg Tablet] 1 - 2 tab PO Q4H PRN #10 tablet PRN Reason: Referrals: SB PETIT DO [Primary Care Provider] - Follow up as needed
[2018-05-09 18:31] VITALS: BP 110/70
== END 2018-05-09 18:30 | disposition home or self-care (01) ==
LOC: ER 15:16
DX: K31.84 Gastroparesis (principal); R10.9 Unspecified abdominal pain; R11.10 Vomiting, unspecified; L98.9 Disorder of the skin and subcutaneous tissue, unspecified; E78.00 Pure hypercholesterolemia, unspecified; F17.200 Nicotine dependence, unspecified, uncomplicated; I10 Essential (primary) hypertension; Z90.710 Acquired absence of both cervix and uterus
CPT/HCPCS: 99284; 96374; 96375; 36415; 87070; 87205; 83690; 85025; 87075; 87077; 80053; 81001; 87186; S0119; J2765; J1170

== ENCOUNTER 2019-04-28 19:08 | Emergency (ER) | payer OTHER ==
[2019-04-28] MEDS ORDERED: NORMAL SALINE 1000 ML 1,000 ML IV ONE ×2 (20:09→23:17)
[2019-04-28] MEDS ORDERED: KETOROLAC TROMETHAMINE INJ/PF 30 MG/1 ML SDV IV ONE (20:10)
[2019-04-28] MEDS ORDERED: PROCHLORPERAZINE EDISYLATE INJ 10 MG/2 ML VIAL IV ONE (20:10)
[2019-04-28] MEDS ORDERED: DIPHENHYDRAMINE HCL 50 MG/ML VIAL IV ONE (20:10)
--- NOTE | 2019-04-28 20:14 | ER Document Report ---
ED Medical Screen (RME) - General Chief Complaint: Abdominal Pain Stated Complaint: ABDOMINAL PAIN AND VOMITING Time Seen by Provider: 04/28/19 20:07 Primary Care Provider: SB PETIT DO [Primary Care Provider] - Follow up as needed Mode of Arrival: Ambulatory Information source: Patient Notes: 39-year-old female presented to ED for complaint of upper abdominal pain since Thursday. She states it is worse in the center of her upper abdomen. She states she had a ulcer about a year ago. She has been vomiting since Thursday and is vomited 3 times today. She states she cannot keep anything down today due to the vomiting. She does have a history of gastroparesis ulcers high blood pressure and thyroid illness. She is also had a and a hysterectomy at the age of 29. 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 She does not drink or do use any drugs. She does live with her family. I have greeted and performed a rapid initial assessment of this patient. A comprehensive ED assessment and evaluation of the patient, analysis of test results and completion of medical decision making process will be conducted by an additional ED providers. Dictation of this chart was performed using voice recognition software; therefore, there may be some unintended grammatical errors. TRAVEL OUTSIDE OF THE [place] IN LAST 30 DAYS: No - Related Data Allergies/Adverse Reactions: No Known Allergies Allergy (Verified 04/28/19 19:12) Past Medical History - Past Medical History Cardiac Medical History: Reports: Hx Hypercholesterolemia, Hx Hypertension Neurological Medical History: Reports: Hx Migraine. Denies: Hx Seizures Endocrine Medical History: Denies: Hx Diabetes Mellitus Type 1, Hx Diabetes Mellitus Type 2 Renal/ Medical History: Denies: Hx Peritoneal Dialysis GI Medical History: Reports: Hx Ulcer. Denies: Hx Irritable Bowel Psychiatric Medical History: Reports: Hx Depression Past Surgical History: Reports: Hx Section - X3, Hx Genitourinary Surgery - D&Cs x 2, Hx Hysterectomy - Immunizations Hx Diphtheria, Pertussis, Tetanus Vaccination: Yes History of Influenza Vaccine for 08/2017 - 01/2018 Season: Refused Physical Exam - Vital signs Vitals: Temp Pulse Resp BP Pulse Ox 97.9 F 116 H 18 145/94 H 97 04/28/19 19:14 04/28/19 19:14 04/28/19 19:14 04/28/19 19:14 04/28/19 19:14 Course - Vital Signs Vital signs: Temp Pulse Resp BP Pulse Ox 97.9 F 116 H 18 145/94 H 97 04/28/19 19:14 04/28/19 19:14 04/28/19 19:14 04/28/19 19:14 04/28/19 19:14 Doctor's Discharge - Discharge Referrals: SB PETIT DO [Primary Care Provider] - Follow up as needed
[2019-04-28 21:19] LABS: ABSOLUTE EOSINOPHILS # (AUTO) 0.1 10^3/uL (0.0-0.6); ABSOLUTE LYMPHOCYTES (AUTO) 1.7 10^3/uL (0.5-4.7); ABSOLUTE MONOCYTES (AUTO) 0.5 10^3/uL (0.1-1.4); ABSOLUTE NEUT (AUTO) 3.4 10^3/uL (1.7-8.2); BASOPHILS % (AUTO) 0.5 % (0-2); EOSINOPHILS % (AUTO) 1.3 % (0-6); HEMATOCRIT 40.2 % (36.0-47.0); LYMPHOCYTES % (AUTO) 29.9 % (13-45); MEAN CORPUSCULAR HEMOGLOBIN 31.1 pg (27.0-33.4); MEAN CORPUSCULAR HGB CONC 32.3 g/dL (32.0-36.0); MEAN CORPUSCULAR VOLUME 96 fl (80-97); PLATELET COUNT 271 10^3/uL (150-450); RED BLOOD COUNT 4.18 10^6/uL (3.72-5.28); RED CELL DISTRIBUTION WIDTH 18.3 % (11.5-14.0); SEGMENTED NEUTROPHILS % (AUTO) 60.3 % (42-78); TOTAL CELLS COUNTED % (AUTO) 100 %; WHITE BLOOD COUNT 5.7 10^3/uL (4.0-10.5)
[2019-04-28 21:32] LABS: APPEARANCE,URINE CLEAR; BILIRUBIN,URINE NEGATIVE (NEGATIVE); COLOR,URINE YELLOW; GLUCOSE, URINE NEGATIVE (NEGATIVE); KETONES,URINE 20 mg/dL (NEGATIVE); LEUKOCYTE ESTERASE,URINE NEGATIVE (NEGATIVE); NITRITE,URINE NEGATIVE (NEGATIVE); PROTEIN,URINE NEGATIVE (NEGATIVE); URINE SPECIFIC GRAVITY 1.042; UROBILINOGEN,URINE NEGATIVE mg/dL (<2.0)
[2019-04-28 21:45] LABS: ALANINE AMINOTRANSFERASE 14 U/L (9-52); ALBUMIN 5.1 g/dL (3.5-5.0); ALKALINE PHOSPHATASE 33 U/L (38-126); ANION GAP 16 (5-19); ASPARTATE AMINO TRANSFERASE 21 U/L (14-36); BILIRUBIN,DIRECT 0.3 mg/dL (0.0-0.4); BILIRUBIN,TOTAL 0.4 mg/dL (0.2-1.3); BLOOD UREA NITROGEN 19 mg/dL (7-20); CARBON DIOXIDE 19 mmol/L (22-30); CHLORIDE 107 mmol/L (98-107); GLUCOSE 79 mg/dL (75-110); POTASSIUM 4.4 mmol/L (3.6-5.0); SODIUM 141.6 mmol/L (137-145); TOTAL PROTEIN 8.6 g/dL (6.3-8.2)
[2019-04-28 21:46] LABS: LIPASE 67.9 U/L (23-300)
[2019-04-28] MEDS ORDERED: HALOPERIDOL LACTATE INJ 5 MG/1 ML VIAL IV ONE (23:17)
[2019-04-28] MEDS ORDERED: HYDROMORPHONE HCL INJ/PF 2 MG/ML AMPULE IV ONE (23:17)
--- NOTE | 2019-04-28 23:19 | ER Document Report ---
ED General - General Chief Complaint: Abdominal Pain Stated Complaint: ABDOMINAL PAIN AND VOMITING Time Seen by Provider: 04/28/19 20:07 Primary Care Provider: SB PETIT DO [Primary Care Provider] - Follow up in 3-5 days Mode of Arrival: Ambulatory Information source: Patient Notes: This is a 39-year-old woman with a history of GERD, gastroparesis and migraines who presents to the emergency room with nausea, vomiting and abdominal cramping. Patient denies fevers. Patient she says she has had similar episodes of this in the past. TRAVEL OUTSIDE OF THE [place] IN LAST 30 DAYS: No - HPI Onset: Last week Onset/Duration: Gradual Quality of pain: Cramping Severity: Moderate Pain Level: 2 Associated symptoms: denies: Body/muscle aches, Fever, Shortness of breath Exacerbated by: Denies Relieved by: Denies Similar symptoms previously: Yes Recently seen / treated by doctor: No - Related Data Allergies/Adverse Reactions: No Known Allergies Allergy (Verified 04/28/19 19:12) Past Medical History - General Information source: Patient - Social History Smoking Status: Current Every Day Smoker Cigarette use (# per day): Yes - Half a pack per day Chew tobacco use (# tins/day): No Smoking Education Provided: Yes Frequency of alcohol use: None Lives with: Family Family History: Reviewed & Not Pertinent, Other Patient has suicidal ideation: No Patient has homicidal ideation: No - Past Medical History Cardiac Medical History: Reports: Hx Hypercholesterolemia, Hx Hypertension Neurological Medical History: Reports: Hx Migraine. Denies: Hx Seizures Endocrine Medical History: Denies: Hx Diabetes Mellitus Type 1, Hx Diabetes Mellitus Type 2 Renal/ Medical History: Denies: Hx Peritoneal Dialysis GI Medical History: Reports: Hx Ulcer. Denies: Hx Irritable Bowel Psychiatric Medical History: Reports: Hx Depression Past Surgical History: Reports: Hx Section - X3, Hx Genitourinary Surgery - D&Cs x 2, Hx Hysterectomy - Immunizations Hx Diphtheria, Pertussis, Tetanus Vaccination: Yes Review of Systems - Review of Systems Constitutional: denies: Chills, Fever EENT: No symptoms reported Cardiovascular: No symptoms reported Respiratory: No symptoms reported Gastrointestinal: See HPI Genitourinary: No symptoms reported Female Genitourinary: No symptoms reported Musculoskeletal: No symptoms reported Skin: No symptoms reported Hematologic/Lymphatic: No symptoms reported Neurological/Psychological: No symptoms reported Physical Exam - Vital signs Vitals: Temp Pulse Resp BP Pulse Ox 97.9 F 116 H 18 145/94 H 97 04/28/19 19:14 04/28/19 19:14 04/28/19 19:14 04/28/19 19:14 04/28/19 19:14 Notes: Physical exam: GENERAL: 39-year-old female, alert and oriented x3, answering questions. Complaining of some nausea but not in significant distress. HEAD: Atraumatic, normocephalic. EYES: Pupils equal round and reactive to light, extraocular movements intact, sclera anicteric, conjunctiva are normal. ENT: TMs normal, nares patent, oropharynx clear without exudates. Moist mucous membranes. NECK: Normal range of motion, supple without obvious mass or JVD. LUNGS: Breath sounds clear to auscultation bilaterally and equal. No wheezes rales or rhonchi. HEART: Regular rate and rhythm without murmurs, rubs or gallops. ABDOMEN: Soft, normoactive bowel sounds. No tenderness to palpation. No guarding, no rebound. No masses appreciated. EXTREMITIES: Normal range of motion, no pitting or edema. No clubbing or cyanosis. NEUROLOGICAL: Cranial nerves II through XII grossly intact. Normal speech, moving all extremities. PSYCH: Normal mood, normal affect. SKIN: Warm, Dry, normal turgor, no rashes or lesions noted. Course - Vital Signs Vital signs: Temp Pulse Resp BP Pulse Ox 97.9 F 116 H 18 145/94 H 97 04/28/19 19:14 04/28/19 19:14 04/28/19 19:14 04/28/19 19:14 04/28/19 19:14 - Laboratory Result Diagrams: 04/28/19 20:43 04/28/19 20:43 Laboratory results interpreted by me: 04/28/19 04/28/19 04/28/19 20:43 20:43 20:43 RDW 18.3 H Carbon Dioxide 19 L Alkaline Phosphatase 33 L Total Protein 8.6 H Albumin 5.1 H Urine Ketones 20 H Discharge - Discharge Clinical Impression: Gastroparesis Condition: Stable Disposition: HOME, SELF-CARE Additional Instructions: Rest, drink plenty of fluids Take the pain medicine as prescribed. Take the nausea medicine as needed. Take the Carafate as prescribed. Follow-up with your primary care doctor. Return to the emergency room for worsening pain, nausea, vomiting or any concerns that you are getting worse. The pain medicine you're taking prescribed as a narcotic. There are several important things you should know about this medicine: 1. This medicine contains Tylenol: It is important that you do not take Tylenol (or acetaminophen) while on this medicine. Tylenol is metabolized by the liver and taking too much Tylenol (acetaminophen) can lay to liver damage and even liver failure. 2. Taking narcotics for too long can lead to physical and mental dependence. Take this medicine only if really needed and in the lowest quantity to achieve pain relief. 3. Do not drink alcohol while on this medicine. Alcohol interacts with narc otics and the combination can be dangerous. 4. Do not drive or operate machinery while on this medicine. 5. Narcotics do cause constipation, so drink plenty of fluids and daily stool softeners. Prescriptions: Hydrocodone/Acetaminophen [Salmon 5-325 mg Tablet] 1 tab PO Q6HP PRN #20 tablet PRN Reason: Promethazine HCl [Phenergan 25 mg Tablet] 25 mg PO Q6H PRN #15 tablet PRN Reason: Sucralfate [Carafate 1 gm Tablet] 1 gm PO ACHS #60 tablet Referrals: SB PETIT DO [Primary Care Provider] - Follow up in 3-5 days
[2019-04-29 02:56] VITALS: BP 110/78
== END 2019-04-29 02:56 | disposition home or self-care (01) ==
LOC: ER 19:08
DX: K31.84 Gastroparesis (principal); F17.210 Nicotine dependence, cigarettes, uncomplicated; Z90.710 Acquired absence of both cervix and uterus; Z87.11 Personal history of peptic ulcer disease
CPT/HCPCS: 99284; 96361; 96374; 96375; 36415; 83690; 84703; 85025; 80053; 81001; J1200; J1630; J1170; J0780; J7030

== ENCOUNTER 2019-05-21 12:06 | Emergency (ER) | payer OTHER ==
--- NOTE | 2019-05-21 12:42 | ER Document Report ---
ED Medical Screen (RME) - General Chief Complaint: Nausea/Vomiting Stated Complaint: VOMITING Time Seen by Provider: 05/21/19 12:31 Primary Care Provider: SB PETIT DO [Primary Care Provider] - Follow up as needed Mode of Arrival: Ambulatory Information source: Patient Notes: Patient presents to the emergency department with complaints of abdominal pain nausea and vomiting for the last couple weeks. Reports she was seen here evaluated for same few weeks ago when she is not feeling better. Reports she was given promethazine and is not helping. She is also been evaluated by her provider twice. Patient does have a history of H. pylori. Right upper quad tender to palpate. I have greeted and performed a rapid initial assessment of this patient. A co mprehensive ED assessment and evaluation of the patient, analysis of test results and completion of the medical decision making process will be conducted by additional ED providers. Dictation of this chart was performed using voice recognition software; therefore, there may be some unintended grammatical errors. TRAVEL OUTSIDE OF THE [place] IN LAST 30 DAYS: No - Related Data Allergies/Adverse Reactions: No Known Allergies Allergy (Verified 05/21/19 12:08) Past Medical History - Past Medical History Cardiac Medical History: Reports: Hx Hypercholesterolemia, Hx Hypertension Neurological Medical History: Reports: Hx Migraine. Denies: Hx Seizures Endocrine Medical History: Denies: Hx Diabetes Mellitus Type 1, Hx Diabetes Mellitus Type 2 Renal/ Medical History: Denies: Hx Peritoneal Dialysis GI Medical History: Reports: Hx Ulcer. Denies: Hx Irritable Bowel Psychiatric Medical History: Reports: Hx Depression Past Surgical History: Reports: Hx Section - X3, Hx Genitourinary Surgery - D&Cs x 2, Hx Hysterectomy - Immunizations Hx Diphtheria, Pertussis, Tetanus Vaccination: Yes History of Influenza Vaccine for 08/2017 - 01/2018 Season: Refused Physical Exam - Vital signs Vitals: Temp Pulse Resp BP Pulse Ox 98.0 F 98 14 121/79 97 05/21/19 12:15 05/21/19 12:15 05/21/19 12:15 05/21/19 12:15 05/21/19 12:15 Course - Vital Signs Vital signs: Temp Pulse Resp BP Pulse Ox 98.0 F 98 14 121/79 97 05/21/19 12:15 05/21/19 12:15 05/21/19 12:15 05/21/19 12:15 05/21/19 12:15 Doctor's Discharge - Discharge Referrals: SB PETIT DO [Primary Care Provider] - Follow up as needed
[2019-05-21 13:02] LABS: ABSOLUTE EOSINOPHILS # (AUTO) 0.1 10^3/uL (0.0-0.6); ABSOLUTE LYMPHOCYTES (AUTO) 1.6 10^3/uL (0.5-4.7); ABSOLUTE MONOCYTES (AUTO) 0.5 10^3/uL (0.1-1.4); ABSOLUTE NEUT (AUTO) 3.1 10^3/uL (1.7-8.2); BASOPHILS % (AUTO) 0.8 % (0-2); EOSINOPHILS % (AUTO) 1.8 % (0-6); HEMATOCRIT 37.2 % (36.0-47.0); HEMOGLOBIN 12.4 g/dL (12.0-15.5); MEAN CORPUSCULAR HEMOGLOBIN 32.6 pg (27.0-33.4); MEAN CORPUSCULAR HGB CONC 33.4 g/dL (32.0-36.0); MEAN CORPUSCULAR VOLUME 98 fl (80-97); MONOCYTES % (AUTO) 8.8 % (3-13); PLATELET COUNT 318 10^3/uL (150-450); RED BLOOD COUNT 3.81 10^6/uL (3.72-5.28); RED CELL DISTRIBUTION WIDTH 19.3 % (11.5-14.0); SEGMENTED NEUTROPHILS % (AUTO) 57.6 % (42-78); TOTAL CELLS COUNTED % (AUTO) 100 %; WHITE BLOOD COUNT 5.3 10^3/uL (4.0-10.5)
[2019-05-21 13:06] LABS: APPEARANCE,URINE CLEAR; BILIRUBIN,URINE NEGATIVE (NEGATIVE); COLOR,URINE YELLOW; GLUCOSE, URINE NEGATIVE (NEGATIVE); KETONES,URINE TRACE mg/dL (NEGATIVE); LEUKOCYTE ESTERASE,URINE NEGATIVE (NEGATIVE); NITRITE,URINE NEGATIVE (NEGATIVE); PROTEIN,URINE NEGATIVE (NEGATIVE); UROBILINOGEN,URINE NEGATIVE mg/dL (<2.0)
[2019-05-21 13:17] LABS: ALANINE AMINOTRANSFERASE 13 U/L (9-52); ALBUMIN 4.8 g/dL (3.5-5.0); ALKALINE PHOSPHATASE 34 U/L (38-126); ANION GAP 13 (5-19); ASPARTATE AMINO TRANSFERASE 15 U/L (14-36); BILIRUBIN,DIRECT 0.2 mg/dL (0.0-0.4); BILIRUBIN,TOTAL 0.3 mg/dL (0.2-1.3); BLOOD UREA NITROGEN 12 mg/dL (7-20); CALCIUM 9.9 mg/dL (8.4-10.2); CARBON DIOXIDE 23 mmol/L (22-30); CHLORIDE 103 mmol/L (98-107); GLUCOSE 95 mg/dL (75-110); SODIUM 139.3 mmol/L (137-145); URINE AMPHETAMINES SCREEN NEGATIVE; URINE BARBITURATES SCREEN NEGATIVE; URINE BENZODIAZEPINES SCREEN NEGATIVE; URINE COCAINE SCREEN NEGATIVE; URINE MARIJUANA (THC) SCREEN NEGATIVE; URINE METHADONE SCREEN NEGATIVE; URINE PHENCYCLIDINE SCREEN NEGATIVE
--- NOTE | 2019-05-21 13:27 | RADIOLOGY REPORT (SQ) ---
EXAM DESCRIPTION: U/S ABDOMEN LIMITED W/O DOP COMPLETED DATE/TIME: 05/21/2019 1:18 pm REASON FOR STUDY: RUQ Abdominal pain COMPARISON: 11/28/2017. TECHNIQUE: Dynamic and static grayscale images acquired of the abdomen and recorded on PACS. Additio nal selected color Doppler and spectral images recorded. LIMITATIONS: None. FINDINGS: PANCREAS: No masses. Visualized pancreatic duct normal caliber. LIVER: No masses. Echotexture normal. LIVER VASCULATURE: Normal directional flow of the main portal vein and hepatic veins. GALLBLADDER: No stones. Normal wall thickness. No pericholecystic fluid. ULTRASOUND-DETECTED SMITH'S SIGN: Negative. INTRAHEPATIC DUCTS AND COMMON DUCT: CBD and intrahepatic ducts normal caliber. No filling defects. INFERIOR VENA CAVA: Normal flow. AORTA: No aneurysm. RIGHT KIDNEY: Normal size. Normal echogenicity. No solid or suspicious masses. No hydronephrosis. No calcifications. PERITONEAL AND RIGHT PLEURAL SPACE: No ascites or effusions. OTHER: No other significant findings. IMPRESSION: NORMAL RIGHT UPPER QUADRANT ULTRASOUND. TECHNICAL DOCUMENTATION: JOB ID: [id number] [employer]- All Rights Reserved Reading location - IP/workstation name: [email or web address]
[2019-05-21] MEDS ORDERED: NORMAL SALINE 1000 ML 1,000 ML IV ONE (14:22)
[2019-05-21] MEDS ORDERED: PROMETHAZINE HCL INJ 25 MG/1 ML VIAL IM ONE (14:23)
--- NOTE | 2019-05-21 14:33 | ER Document Report ---
ED General - General Chief Complaint: Nausea/Vomiting Stated Complaint: VOMITING Time Seen by Provider: 05/21/19 12:31 Primary Care Provider: SB PETIT DO [NO LOCAL MD] - Follow up as needed Mode of Arrival: Ambulatory Information source: Patient TRAVEL OUTSIDE OF THE [place] IN LAST 30 DAYS: No - HPI Patient complains to provider of: Abdominal pain, nausea, vomiting, constipation Onset: Other - Weeks Onset/Duration: Persistent Quality of pain: Cramping, Sharp Severity: Severe Pain Level: 4 Associated symptoms: Nausea, Vomiting, Other - Constipation. denies: Chills, Diarrhea, Fever Exacerbated by: Food Relieved by: Denies Similar symptoms previously: No Recently seen / treated by doctor: No Notes: 39-year-old female with history of peptic ulcer, history of Helicobacter pylori, possible gastroparesis here with weeks of vomiting and abdominal pain. GI doctor could not see her. Primary care will not do anything for. She is afebrile. No shaking chills. Also states constipated for about a week. Multiple abdominal surgeries in the past. - Related Data Allergies/Adverse Reactions: No Known Allergies Allergy (Verified 05/21/19 12:08) Past Medical History - General Information source: Patient - Social History Smoking Status: Current Every Day Smoker Family History: Reviewed & Not Pertinent, Other Patient has suicidal ideation: No Patient has homicidal ideation: No - Past Medical History Cardiac Medical History: Reports: Hx Hypercholesterolemia, Hx Hypertension Neurological Medical History: Reports: Hx Migraine. Denies: Hx Seizures Endocrine Medical History: Denies: Hx Diabetes Mellitus Type 1, Hx Diabetes Mellitus Type 2 Renal/ Medical History: Denies: Hx Peritoneal Dialysis GI Medical History: Reports: Hx Ulcer. Denies: Hx Irritable Bowel Psychiatric Medical History: Reports: Hx Depression Past Surgical History: Reports: Hx Section - X3, Hx Genitourinary Surgery - D&Cs x 2, Hx Hysterectomy - Immunizations Hx Diphtheria, Pertussis, Tetanus Vaccination: Yes Review of Systems - Review of Systems Notes: Constitutional: No fevers. No chills. EENT: No eye redness. No eye pain. No ear pain. No sore throat. Cardiovascular: No chest pain. No palpitations. Respiratory: No cough. No shortness of breath. No respiratory distress. Gastrointestinal: Positive for abdominal pain, nausea, vomiting, constipation. Negative for diarrhea Genitourinary: Atraumatic. No lesions. No pain. No discharge. Musculoskeletal: Atraumatic. No swelling. No deformities. Skin: No rash or lesions. Lymphatic: No swollen lymph nodes. Neurologic: No headache. No syncope. Psychiatric: No suicidal or homicidal ideation. Physical Exam - Vital signs Vitals: Temp Pulse Resp BP Pulse Ox 98.0 F 98 14 121/79 97 05/21/19 12:15 05/21/19 12:15 05/21/19 12:15 05/21/19 12:15 05/21/19 12:15 - Notes Notes: General: Looks older than stated age Cardiac: Well-perfused. Regular rate and rhythm. No murmurs, rubs, or gallops. Pulmonary: No respiratory distress. No cyanosis. Bilateral lung fiels are clear to auscultation. Abdominal: Non-distended. Non-rigid. Bowels sounds are present in all four quadrants. No guarding or rebound. HEENT: Head is atraumatic. Conjunctivae not reddened. No tearing. PERRL. EOMI. Orbits atraumatic. No periorbital swelling or erythema. Oropharynx is without erythema, swelling, or exudates. Neck: Supple. No adenopathy. No meningismus. Dermatologic: Warm with good turgor. No rash. Atraumatic. Chest: Atraumatic. No chest wall tenderness to palpation. Musculoskeletal: Moves all extremities well. No range of motion deficits. no muscular or joint tenderness. No paraspinal muscle tenderness. no midline spinal tenderness or step-off. Genitourinary: Examination deferred Neurologic: No gross neurologic deficits. Psychiatric: Normal mood. Course - Re-evaluation Re-evalutation: 05/21/19 14:33 Labs are all normal thus far. Ultrasound negative. Will order CT scan to rule out small bowel obstruction. Order fluids and Phenergan. 05/21/19 16:33 SYMPTOMS IMPROVED. IMAGING NL. WILL DC HOME ON PHENERGAN AND LIBRAX. - Vital Signs Vital signs: Temp Pulse Resp BP Pulse Ox 98.0 F 98 14 121/79 97 05/21/19 12:15 05/21/19 12:15 05/21/19 12:15 05/21/19 12:15 05/21/19 12:15 - Laboratory Result Diagrams: 05/21/19 12:46 05/21/19 12:46 Laboratory results interpreted by me: 05/21/19 05/21/19 05/21/19 12:46 12:46 12:46 MCV 98 H RDW 19.3 H Alkaline Phosphatase 34 L Urine Ketones TRACE H Discharge - Discharge Clinical Impression: Chronic abdominal pain Nausea and vomiting Qualifiers: Vomiting type: unspecified Vomiting Intractability: non-intractable Qualified Code(s): R11.2 - Nausea with vomiting, unspecified Condition: Good Disposition: HOME, SELF-CARE Instructions: Abdominal Pain ([facility]), Antispasmodics ([facility]), Intravenous (IV) Fluids ([facility]), Reglan ([facility]), Vomiting ([facility]) Additional Instructions: Phenergan as needed for severe intractable nausea and Librax as needed for intestinal spasms and pain. Follow-up with your GI doctor soon as possible. Prescriptions: Chlordiazepoxide/Clidinium Br [Librax Capsule] 1 each PO Q6HP PRN #12 capsule PRN Reason: Promethazine HCl [Phenergan 25 mg Tablet] 1 tab PO Q6H PRN #12 tablet PRN Reason: Referrals: SB PETIT DO [NO LOCAL MD] - Follow up as needed
--- NOTE | 2019-05-21 15:33 | RADIOLOGY REPORT (SQ) ---
EXAM DESCRIPTION: CT ABD/PELVIS WITH IV ONLY COMPLETED DATE/TIME: 05/21/2019 3:07 pm REASON FOR STUDY: intractable vomiting, constipation, mult abd surge COMPARISON: None. TECHNIQUE: CT scan of the abdomen and pelvis performed using helical scanning technique with dynamic intravenous contrast injection. No oral contrast. Images reviewed with lung, soft tissue, and bone windows. Reconstructed coronal and sagittal MPR images reviewed. Delayed images for evaluation of the urinary system also acquired. All images stored on PACS. All CT scanners at this facility use dose modulation, iterative reconstruction, and/or weight based d osing when appropriate to reduce radiation dose to as low as reasonably achievable (ALARA). [facility]: Dose Right [facility]: CareDose [facility]: Dose Right [facility]: Teradose 4D [facility]: MileIQ CONTRAST TYPE AND DOSE: contrast/concentration: Isovue 350.00 mg/ml; Total Contrast Delivered: 70.0 ml; Total Saline Delivered: 65.0 ml RENAL FUNCTION: Creatinine: 0.73 RADIATION DOSE: CT Rad equipment meets quality standard of care and radiation dose reduction techniq ues were employed. CTDIvol: 4.9 - 5.7 mGy. DLP: 535 mGy-cm.. LIMITATIONS: None. FINDINGS: LOWER CHEST: Chronic scarring left lower lobe. . LIVER: Normal. SPLEEN: Normal. PANCREAS: Normal. GALLBLADDER: Normal. ADRENAL GLANDS: Normal. RIGHT KIDNEY AND URETER: Normal . LEFT KIDNEY AND URETER: Normal. AORTA AND VESSELS: No aneurysm. No dissection. Renal arteries, SMA, celiac without stenosis. RETROPERITONEUM: No retroperitoneal adenopathy, hemorrhage or masses. BOWEL AND PERITONNEAL CAVITY: No abnormality. APPENDIX: No abnormality (image number [id number]/ [id number] series 601 coronal scan.) PELVIS: No mass. No free fluid. Normal bladder. ABDOMINAL WALL: No masses. No hernias. BONES: No significant or acute findings. IMPRESSION: NO SIGNIFICANT ABNORMALITY SEEN. TECHNICAL DOCUMENTATION: JOB ID: [id number] SC-69 Quality ID # [id number]: Final reports with documentation of one or more dose reduction techniques (e.g., Au tomated exposure control, adjustment of the mA and/or kV according to patient size, use of iterative reconstruction technique) 2010 [employer]- All Rights Reserved Reading location - IP/workstation name: [email or web address]
[2019-05-21] MEDS ORDERED: MORPHINE SULFATE 10 MG/ML INJ SUBCUT ONE (15:55)
[2019-05-21 16:59] VITALS: BP 120/72
[2019-05-31 09:27] LABS: HELICOBACTER PYLORI IGA AB <9.0 units (0.0-8.9); HELICOBACTER PYLORI IGG AB <0.80 (0.00-0.79)
== END 2019-05-21 16:58 | disposition home or self-care (01) ==
LOC: ER 12:06
DX: R10.9 Unspecified abdominal pain (principal); G89.29 Other chronic pain; R11.2 Nausea with vomiting, unspecified; K59.00 Constipation, unspecified; F17.200 Nicotine dependence, unspecified, uncomplicated; I10 Essential (primary) hypertension
CPT/HCPCS: 99284; 96372; 96360; 86677 ×3; 36415; 83690; 85025; 80053; 81001; 80307; 76705; 74177; J2270; J2550; J7030

== ENCOUNTER 2020-05-12 04:51 | Emergency (ER) | payer OTHER ==
[2020-05-12] MEDS ORDERED: NORMAL SALINE 1000 ML 1,000 ML IV ONE ×2 (05:37→06:37)
[2020-05-12 05:43] LABS: ABSOLUTE LYMPHOCYTES (AUTO) 0.9 10^3/uL (0.5-4.7); ABSOLUTE MONOCYTES (AUTO) 0.3 10^3/uL (0.1-1.4); ABSOLUTE NEUT (AUTO) 3.9 10^3/uL (1.7-8.2); BASOPHILS % (AUTO) 0.4 % (0-2); EOSINOPHILS % (AUTO) 0.5 % (0-6); HEMATOCRIT 46.5 % (36.0-47.0); LYMPHOCYTES % (AUTO) 18.5 % (13-45); MEAN CORPUSCULAR HEMOGLOBIN 34.7 pg (27.0-33.4); MEAN CORPUSCULAR HGB CONC 34.4 g/dL (32.0-36.0); MEAN CORPUSCULAR VOLUME 101 fl (80-97); MONOCYTES % (AUTO) 5.1 % (3-13); PLATELET COUNT 258 10^3/uL (150-450); RED BLOOD COUNT 4.61 10^6/uL (3.72-5.28); RED CELL DISTRIBUTION WIDTH 15.7 % (11.5-14.0); SEGMENTED NEUTROPHILS % (AUTO) 75.5 % (42-78); TOTAL CELLS COUNTED % (AUTO) 100 %; WHITE BLOOD COUNT 5.1 10^3/uL (4.0-10.5)
[2020-05-12 06:01] LABS: ALBUMIN 4.7 g/dL (3.5-5.0); ALKALINE PHOSPHATASE 52 U/L (38-126); ANION GAP 12 (5-19); ASPARTATE AMINO TRANSFERASE 17 U/L (14-36); BILIRUBIN,TOTAL 0.4 mg/dL (0.2-1.3); BLOOD UREA NITROGEN 15 mg/dL (7-20); CARBON DIOXIDE 20 mmol/L (22-30); CHLORIDE 108 mmol/L (98-107); GLUCOSE 100 mg/dL (75-110); POTASSIUM 3.8 mmol/L (3.6-5.0); TOTAL PROTEIN 7.8 g/dL (6.3-8.2)
[2020-05-12] MEDS ORDERED: FAMOTIDINE INJ/PF 20 MG/2 ML SDV IV ONE (06:38)
[2020-05-12] MEDS ORDERED: ONDANSETRON HCL INJ/PF 4 MG/2 ML SDV IV ONE (06:38)
[2020-05-12 07:11] LABS: APPEARANCE,URINE CLEAR; BILIRUBIN,URINE NEGATIVE (NEGATIVE); COLOR,URINE YELLOW; GLUCOSE, URINE NEGATIVE (NEGATIVE); KETONES,URINE 20 mg/dL (NEGATIVE); LEUKOCYTE ESTERASE,URINE NEGATIVE (NEGATIVE); NITRITE,URINE NEGATIVE (NEGATIVE); PROTEIN,URINE 30 mg/dL (NEGATIVE); UROBILINOGEN,URINE NEGATIVE mg/dL (<2.0)
--- NOTE | 2020-05-12 07:26 | RADIOLOGY REPORT (SQ) ---
EXAM DESCRIPTION: XR ABDOMEN SUPINE AND ERECT WITH CHEST (ABD ACUTE SERIES) COMPLETED DATE/TME: 05/12/2020 06:37 CLINICAL HISTORY: 40 years, Female, N/V Comparison: None FINDINGS: The lungs are clear. There are no pleural abnormalities. Cardiac silhouette and pulmonary vessels are normal. Supine and upright views of the abdomen show no dilated loops of bowel. No pathologic calcifications. Hemisacralization L5-S1 on the left. No acute osseous abnormalities. IMPRESSION: No acute cardiopulmonary disease. Nonspecific bowel gas pattern.
[2020-05-12 07:34] LABS: URINE AMPHETAMINES SCREEN NEGATIVE; URINE BARBITURATES SCREEN NEGATIVE; URINE BENZODIAZEPINES SCREEN NEGATIVE; URINE COCAINE SCREEN NEGATIVE; URINE MARIJUANA (THC) SCREEN NEGATIVE; URINE METHADONE SCREEN NEGATIVE; URINE PHENCYCLIDINE SCREEN NEGATIVE
[2020-05-12] MEDS ORDERED: DICYCLOMINE HCL 20 MG TABLET PO ONE (09:18)
--- NOTE | 2020-05-12 09:19 | ER Document Report ---
Entered by MG LOPEZ SCRIBE 05/12/20 0636 Acting as scribe for:FRAN MCFARLAND MD ED GI/ - General Chief Complaint: Abdominal Pain Stated Complaint: VOMITING,BODY PAIN Time Seen by Provider: 05/12/20 06:08 Primary Care Provider: CYRUS GALLARDO MD [Primary Care Provider] - Follow up as needed Information source: Patient Notes: This 40 year old female patient presents to the emergency department today with complaints of abdominal pain for the past x2 weeks. Patient reports nausea, and vomiting producing green bile. Patient reports diarrhea x1 week ago, but this has resolved. Patient states she has had years of abdominal pain and it has not been able to be diagnosed. Patient denies black stool or blood being present in her vomit. Denies any fever, chills, or exposure to anyone with covid. TRAVEL OUTSIDE OF THE [place] IN LAST 30 DAYS: No - Related Data Allergies/Adverse Reactions: No Known Allergies Allergy (Verified 05/12/20 05:48) Past Medical History - General Information source: Patient - Social History Smoking Status: Current Every Day Smoker Cigarette use (# per day): Yes Chew tobacco use (# tins/day): No Frequency of alcohol use: None Drug Abuse: None Lives with: Family Family History: Reviewed & Not Pertinent Patient has homicidal ideation: No - Past Medical History Cardiac Medical History: Reports: Hx Hypercholesterolemia, Hx Hypertension Neurological Medical History: Reports: Hx Migraine GI Medical History: Reports: Hx Ulcer Psychiatric Medical History: Reports: Hx Depression Past Surgical History: Reports: Hx Section - X3, Hx Genitourinary Surgery - D&Cs x 2, Hx Hysterectomy - Immunizations Hx Diphtheria, Pertussis, Tetanus Vaccination: Yes Review of Systems - Review of Systems Constitutional: See HPI. denies: Chills, Fever EENT: No symptoms reported Cardiovascular: No symptoms reported Respiratory: No symptoms reported Gastrointestinal: See HPI, Abdominal pain, Diarrhea - X1 week ago, Nausea, Vomiting - Green bile, no blood. denies: Black stools Genitourinary: No symptoms reported Female Genitourinary: No symptoms reported Musculoskeletal: No symptoms reported Skin: No symptoms reported Hematologic/Lymphatic: No symptoms reported Neurological/Psychological: No symptoms reported -: Yes All other systems reviewed and negative Physical Exam - Vital signs Vitals: Temp Pulse Resp BP Pulse Ox 98.5 F 97 18 113/80 97 05/12/20 04:51 05/12/20 04:51 05/12/20 04:51 05/12/20 04:51 05/12/20 04:51 - General General appearance: Appears well, Alert - HEENT Head: Normocephalic, Atraumatic Eyes: Normal Pupils: PERRL Neck: Normal, Supple - Respiratory Respiratory status: No respiratory distress Chest status: Nontender Breath sounds: Normal Chest palpation: Normal - Cardiovascular Rhythm: Regular Heart sounds: Normal auscultation, S1 appreciated, S2 appreciated Murmur: No - Abdominal Inspection: Normal - Soft Distension: No distension Bowel sounds: Normal Tenderness: Nontender - Extremities General upper extremity: Normal inspection. No: Edema General lower extremity: Normal inspection. No: Edema - Neurological Neuro grossly intact: Yes Cognition: Normal Orientation: AAOx4 Speech: Normal - Psychological Associated symptoms: Normal affect, Normal mood - Skin Skin Temperature: Warm Skin Moisture: Dry Skin Color: Normal Course - Re-evaluation Re-evalutation: 05/12/20 09:14 Vital signs stable patient states she has abdominal pain cramping. - Vital Signs Vital signs: Temp Pulse Resp BP Pulse Ox 98.5 F 97 18 113/80 97 05/12/20 05:04 05/12/20 04:51 05/12/20 04:51 05/12/20 04:51 05/12/20 04:51 05/12/20 09:14 Vital signs are stable - Laboratory Result Diagrams: 05/12/20 05:26 05/12/20 05:26 Laboratory results interpreted by me: 05/12/20 05/12/20 05/12/20 05:26 05:26 06:35 Hgb 16.0 H MCV 101 H MCH 34.7 H RDW 15.7 H Chloride 108 H Carbon Dioxide 20 L Urine Protein 30 H Urine Ketones 20 H Urine Blood MODERATE H 05/12/20 09:14 Laboratories show hemoconcentration consistent with dehydration. 05/12/20 09:15 Moderate blood noted on urinalysis with no evidence of nitrite positive or leukocyte esterase positive. Doubt that there is any urinary tract infection. - Diagnostic Test Radiology reviewed: Image reviewed, Reports reviewed Radiology results interpreted by me: 05/12/20 09:15 Acute abdominal series shows no acute process no obstruction no free air chest no infection. Discharge - Discharge Clinical Impression: Gastroenteritis, Nausea & vomiting, Abdominal pain Condition: Stable Disposition: HOME, SELF-CARE Instructions: Abdominal Pain ([facility]), Gastroenteritis (adult) ([facility]), Vomiting ([facility]) Prescriptions: Dicyclomine HCl [Bentyl 20 mg Tablet] 20 mg PO QID PRN 5 Days #20 tablet PRN Reason: Abdominal Cramping Famotidine 40 mg PO BID #60 tablet Ondansetron [Zofran Odt 4 mg Tablet] 1 - 2 tab PO Q4H PRN #15 tab.rapdis PRN Reason: For Nausea/Vomiting Referrals: CYRUS GALLARDO MD [Primary Care Provider] - Follow up as needed I personally performed the services described in the documentation, reviewed and edited the documentation which was dictated to the scribe in my presence, and it accurately records my words and actions.
[2020-05-12 09:27] VITALS: BP 120/67
== END 2020-05-12 09:35 | disposition home or self-care (01) ==
LOC: ER 04:51
DX: K52.9 Noninfective gastroenteritis and colitis, unspecified (principal); R11.2 Nausea with vomiting, unspecified; R10.9 Unspecified abdominal pain; F17.210 Nicotine dependence, cigarettes, uncomplicated; I10 Essential (primary) hypertension
CPT/HCPCS: 99284; 96361; 96374; 96375; 36415; 83690; 85025; 80053; 81001; 80307; 74022; J3490; J2405; J7030; S0028

== ENCOUNTER 2020-06-06 18:44 | Emergency (ER) | payer OTHER ==
[2020-06-06 19:15] VITALS: BP 134/94
--- NOTE | 2020-06-06 21:06 | ER Document Report ---
ED General - General Chief Complaint: Vomiting Stated Complaint: BACK PAIN,ABDOMINAL PAIN,VOMITING Time Seen by Provider: 06/06/20 18:49 Primary Care Provider: CYRUS GALLARDO MD [Primary Care Provider] - Follow up as needed Mode of Arrival: Ambulatory Information source: Patient Notes: 06/06/20 18:56 - ED PCT Note by VIDA YANESEE Acct Num: [id number] : 1980 Patient Age: 40 This PCT assisted with patient getting EKG 06/06/20 21:28 - ED Nursing Note by CATALINA TRONCOSO Acct Num: [id number] : 1980 Patient Age: 40 Pt to Ed c/o N/V and 2 episodes of diarrhea that began Thursday. LBM prior to diarrhea 2 weeks ago. Pt c/o continued n/v, and ripping type pain to RLQ and LLQ radiating to back. Hx possible gastroparesis, gastric ulcers, Aspirin poisoning and blood sugar issues. Unable to advise last time that she ate anything. Pt denies fever. AOX4, rates lower abd pain 5 out of 5 currently. Respirations e/u. Emesis noted to be clear, guthrie colored, approximately 350ml noted. Initialized on 06/06/20 21:28 - END OF NOTE TRAVEL OUTSIDE OF THE [place] IN LAST 30 DAYS: No - HPI Onset: Other - x 1-2 weeks by history to staff Onset/Duration: Sudden, Persistent Quality of pain: Achy Severity: Severe Pain Level: 5 Associated symptoms: Diarrhea, Nausea, Vomiting Similar symptoms previously: Yes Recently seen / treated by doctor: No - unknown to me - Related Data Allergies/Adverse Reactions: No Known Allergies Allergy (Verified 06/06/20 21:32) Past Medical History - General Information source: Patient - Social History Smoking Status: Unknown if Ever Smoked Cigarette use (# per day): No - unk Chew tobacco use (# tins/day): No - unk Smoking Education Provided: No - unk Frequency of alcohol use: None - unknown.. i never spoke or saw this pt Drug Abuse: None - unknown.. i never spoke or saw this pt Family History: Reviewed & Not Pertinent Patient has suicidal ideation: No - unknown to me Patient has homicidal ideation: No - unk - Past Medical History Cardiac Medical History: Reports: Hx Hypercholesterolemia, Hx Hypertension Neurological Medical History: Reports: Hx Migraine. Denies: Hx Seizures Endocrine Medical History: Denies: Hx Diabetes Mellitus Type 1, Hx Diabetes Mellitus Type 2 Renal/ Medical History: Denies: Hx Peritoneal Dialysis GI Medical History: Reports: Hx Ulcer. Denies: Hx Irritable Bowel Psychiatric Medical History: Reports: Hx Depression Past Surgical History: Reports: Hx Section - X3, Hx Genitourinary Surgery - D&Cs x 2, Hx Hysterectomy - Immunizations Hx Diphtheria, Pertussis, Tetanus Vaccination: Yes Physical Exam - Vital signs Vitals: Temp Pulse Resp BP Pulse Ox 98.2 F 110 H 18 134/94 H 94 06/06/20 19:14 06/06/20 19:14 06/06/20 19:14 06/06/20 19:14 06/06/20 19:14 Course - Vital Signs Vital signs: Temp Pulse Resp BP Pulse Ox 98.2 F 110 H 18 134/94 H 94 06/06/20 19:14 06/06/20 19:14 06/06/20 19:14 06/06/20 19:14 06/06/20 19:14 Discharge - Discharge Clinical Impression: Abdominal pain Qualifiers: Abdominal location: unspecified location Qualified Code(s): R10.9 - Unspecified abdominal pain Vomiting Qualifiers: Vomiting type: unspecified Vomiting Intractability: unspecified Nausea presence: unspecified Qualified Code(s): R11.10 - Vomiting, unspecified Disposition: LEFT WITHOUT BEING SEEN Referrals: CYRUS GALLARDO MD [Primary Care Provider] - Follow up as needed
--- NOTE | 2020-06-07 13:23 | EKG REPORT ---
SEVERITY:- NORMAL ECG - SINUS RHYTHM : Confirmed by: Josh Reyes MD 07-Jun-2020 13:23:18
== END 2020-06-06 21:45 | disposition left against medical advice (07) ==
LOC: ER 18:44
DX: R11.10 Vomiting, unspecified (principal); R10.9 Unspecified abdominal pain; M54.9 Dorsalgia, unspecified; E78.00 Pure hypercholesterolemia, unspecified; I10 Essential (primary) hypertension
CPT/HCPCS: 93005; 93010; 99281

== ENCOUNTER 2020-06-08 01:40 | Emergency (ER) | payer OTHER ==
[2020-06-08] MEDS ORDERED: ACETAMINOPHEN 325 MG TABLET PO ONE (06:31)
[2020-06-08] MEDS ORDERED: NORMAL SALINE 1000 ML 1,000 ML IV ONE (06:35)
[2020-06-08] MEDS ORDERED: ONDANSETRON HCL INJ/PF 4 MG/2 ML SDV IV ONE ×2 (06:35→11:55)
[2020-06-08 06:53] LABS: ALBUMIN 3.6 g/dL (3.5-5.0); ALKALINE PHOSPHATASE 37 U/L (38-126); ANION GAP 12 (5-19); ASPARTATE AMINO TRANSFERASE 37 U/L (14-36); BILIRUBIN,DIRECT 0.1 mg/dL (0.0-0.4); BILIRUBIN,TOTAL 0.5 mg/dL (0.2-1.3); BLOOD UREA NITROGEN 26 mg/dL (7-20); CALCIUM 9.2 mg/dL (8.4-10.2); CARBON DIOXIDE 21 mmol/L (22-30); CHLORIDE 102 mmol/L (98-107); GLUCOSE 96 mg/dL (75-110); POTASSIUM 4.6 mmol/L (3.6-5.0); TOTAL PROTEIN 6.7 g/dL (6.3-8.2)
[2020-06-08 06:54] LABS: APPEARANCE,URINE CLEAR; BILIRUBIN,URINE NEGATIVE (NEGATIVE); COLOR,URINE YELLOW; GLUCOSE, URINE NEGATIVE (NEGATIVE); KETONES,URINE 20 mg/dL (NEGATIVE); LEUKOCYTE ESTERASE,URINE TRACE (NEGATIVE); NITRITE,URINE NEGATIVE (NEGATIVE); PROTEIN,URINE NEGATIVE (NEGATIVE); URINE SPECIFIC GRAVITY 1.046; UROBILINOGEN,URINE NEGATIVE mg/dL (<2.0)
[2020-06-08 08:31] LABS: ABSOLUTE LYMPHOCYTES (AUTO) 1.5 10^3/uL (0.5-4.7); ABSOLUTE MONOCYTES (AUTO) 0.9 10^3/uL (0.1-1.4); ABSOLUTE NEUT (AUTO) 5.7 10^3/uL (1.7-8.2); BASOPHILS % (AUTO) 0.3 % (0-2); EOSINOPHILS % (AUTO) 0.4 % (0-6); HEMOGLOBIN 11.6 g/dL (12.0-15.5); MEAN CORPUSCULAR HEMOGLOBIN 35.7 pg (27.0-33.4); MEAN CORPUSCULAR HGB CONC 34.1 g/dL (32.0-36.0); MONOCYTES % (AUTO) 10.6 % (3-13); PLATELET COUNT 263 10^3/uL (150-450); RED BLOOD COUNT 3.25 10^6/uL (3.72-5.28); RED CELL DISTRIBUTION WIDTH 17.1 % (11.5-14.0); SEGMENTED NEUTROPHILS % (AUTO) 69.7 % (42-78); TOTAL CELLS COUNTED % (AUTO) 100 %; WHITE BLOOD COUNT 8.1 10^3/uL (4.0-10.5)
[2020-06-08] MEDS ORDERED: FAMOTIDINE 20 MG TABLET PO ONE (08:40)
[2020-06-08] MEDS ORDERED: SUCRALFATE 1 GM TABLET PO ONE (08:40)
[2020-06-08] MEDS ORDERED: MORPHINE SULFATE 10 MG/ML INJ IV ONE ×3 (08:40→14:32)
[2020-06-08] MEDS ORDERED: METOCLOPRAMIDE HCL INJ/PF 10 MG/2 ML SDV IV ONE (08:40)
[2020-06-08 08:41] LABS: MEAN CORPUSCULAR VOLUME 105 fl (80-97)
[2020-06-08] MEDS ORDERED: DICYCLOMINE HCL INJ 20 MG/2 ML AMPULE IM ONE (08:43)
--- NOTE | 2020-06-08 08:43 | ER Document Report ---
ED GI/ - General Chief Complaint: Nausea/Vomiting Stated Complaint: VOMITING BLOOD Time Seen by Provider: 06/08/20 08:04 Primary Care Provider: CYRUS GALLARDO MD [Primary Care Provider] - Follow up as needed KIEL MARTÍNEZ MD [ACTIVE STAFF] - Follow up tomorrow Notes: Patient is a 40-year-old female who presents to the emergency department with a chief complaint of nausea, vomiting, and abdominal pain. Her symptoms have been going on for the past 6 days. Patient also has complaints of a possible yeast infection. She has not been taking any [id number] medication for this. Patient has history of gastritis in the past. She sees Dr. Martínez, but her insurance will not for another endoscope. Patient started vomiting blood last night. Patient has not vomited since she received Zofran in triage. Patient denies any hematochezia. States that she has not had a normal bowel movement since she has been vomiting. TRAVEL OUTSIDE OF THE [place] IN LAST 30 DAYS: No - Related Data Allergies/Adverse Reactions: No Known Allergies Allergy (Verified 06/06/20 21:32) Past Medical History - Social History Smoking Status: Current Every Day Smoker Family History: Reviewed & Not Pertinent Patient has homicidal ideation: No - Past Medical History Cardiac Medical History: Reports: Hx Hypercholesterolemia, Hx Hypertension Neurological Medical History: Reports: Hx Migraine. Denies: Hx Seizures Endocrine Medical History: Denies: Hx Diabetes Mellitus Type 1, Hx Diabetes Mellitus Type 2 Renal/ Medical History: Denies: Hx Peritoneal Dialysis GI Medical History: Reports: Hx Ulcer. Denies: Hx Irritable Bowel Psychiatric Medical History: Reports: Hx Depression Past Surgical History: Reports: Hx Section - X3, Hx Genitourinary Surgery - D&Cs x 2, Hx Hysterectomy - Immunizations Hx Diphtheria, Pertussis, Tetanus Vaccination: Yes Review of Systems - Review of Systems Notes: REVIEW OF SYSTEMS: CONSTITUTIONAL : Denies recent illness. Denies recent unintentional weight loss. Denies fever, chills, or sweats. EENT: Denies eye, ear, throat, or mouth pain, discharge, or symptoms. Denies nasal or sinus congestion. CARDIOVASCULAR: Denies chest pain. RESPIRATORY: Denies shortness of breath, cough, congestion, difficulty breathing, or wheezing. GASTROINTESTINAL: See HPI. GENITOURINARY: Denies difficulty urinating, burning, blood in urine, urgency or frequency. MUSCULOSKELETAL: Denies neck and back pain. Denies joint pain or swelling. SKIN: Denies rash, itchiness, or lesions HEMATOLOGIC : Denies easy bruising or bleeding. LYMPHATIC: Denies swollen, painful, enlarged glands. NEUROLOGICAL: Denies no numbness or tingling denies weakness. Denies headache. Denies altered mental status. Denies alteration in speech. PSYCHIATRIC: Denies stress, anxiety, alteration in sleep patterns, or depressi on. [employer]ERSON[employer]ER: See HPI. All other systems reviewed and negative. Physical Exam - Vital signs Vitals: Temp Pulse BP Pulse Ox 98.1 F 104 H 111/67 100 06/08/20 01:54 06/08/20 01:54 06/08/20 01:54 06/08/20 01:54 - Notes Notes: PHYSICAL EXAMINATION: GENERAL: Appears well, healthy, well-nourished, no acute distress. HEAD: Normocephalic, atraumatic. EYES: PERRL, conjunctiva normal, all extraocular movements intact, sclera nonicteric ENT: Moist mucous membranes. NECK: Supple, no noticeable swelling, redness, rash. Normal range of motion. LUNGS: Equal breath sounds bilaterally and clear to auscultation. No wheezes rales or rhonchi. CARDIOVASCULAR: S1-S2, regular rate, regular rhythm. Radial pulses 2+, normal. ABDOMEN: Normoactive bowel sounds. Soft, tender generalized abdomen, no guarding, no rebound tenderness, and no masses palpated. EXTREMITIES: Normal strength and range of motion, no pitting or edema. No cyanosis. NEUROLOGICAL: Moves all extremities upon command. Strength 5/5 in all extremities. PSYCH: Normal mood, normal affect. SKIN: Warm, dry. No rash, lesions, ulcerations noted. Normal skin turgor. Course - Re-evaluation Re-evalutation: 06/08/20 08:47 Pelvic exam done with ELEANOR Larry at bedside. 06/08/20 11:25 Patient has 4+ epithelial cells and 4+ bacteria noted on her wet mount. There is no yeast or trichomonas. Patient also has 2+ WBCs on her wet mount.We will treat the patient for bacterial vaginosis. Gonorrhea and Chlamydia are negative. Hematology shows a hemoglobin of 11.6 and a hematocrit of 34. This is a significant decrease compared to the previous visit about a month ago where her hemoglobin was 16. Still awaiting right upper quadrant ultrasound. We will also repeat H&H to double check hemoglobin. Patient states that she feels somewhat better. CT of the abdomen pelvis is unremarkable. She has not vomited since she has received the Zofran and Reglan. 06/08/20 14:28 Patient's repeat H&H is stable. We will start the patient on Pepcid and Carafate. She will follow-up with Dr. Martínez in regards to this visit. We will also treat her for bacterial vaginosis. I do not suspect appendicitis. Right upper quadrant ultrasound is normal. Follow-up precautions were given. Verbal discharge instructions were given to the patient. They verbalized understanding. They are stable for discharge. - Vital Signs Vital signs: Temp Pulse Resp BP Pulse Ox 98.8 F 85 123/68 96 06/08/20 14:56 06/08/20 14:56 06/08/20 14:56 06/08/20 14:56 - Laboratory Result Diagrams: 06/08/20 12:42 06/08/20 05:35 Laboratory results interpreted by me: 06/08/20 06/08/20 06/08/20 05:35 06:34 08:14 RBC 3.25 L Hgb 11.6 L Hct 34.0 L MCV 105 H D MCH 35.7 H RDW 17.1 H Sodium 134.8 L Carbon Dioxide 21 L BUN 26 H AST 37 H Alkaline Phosphatase 37 L Urine Ketones 20 H Ur Leukocyte Esterase TRACE H 06/08/20 12:42 RBC 3.35 L Hgb 11.8 L Hct 34.8 L MCV 104 H MCH 35.2 H RDW 17.2 H Sodium Carbon Dioxide BUN AST Alkaline Phosphatase Urine Ketones Ur Leukocyte Esterase Discharge - Discharge Clinical Impression: Vomiting Qualifiers: Vomiting type: unspecified Vomiting Intractability: unspecified Nausea presence: unspecified Qualified Code(s): R11.10 - Vomiting, unspecified Abdominal pain Qualifiers: Abdominal location: unspecified location Qualified Code(s): R10.9 - Unspecified abdominal pain Condition: Stable Disposition: HOME, SELF-CARE Additional Instructions: You were seen today in the emergency department for abdominal pain and vomiting some blood. Please start Pepcid and Carafate. Take Zofran as needed for nausea or vomiting. Start Bentyl for pain. Follow-up with Dr. Martínez tomorrow. You have an overgrowth of natural vaginal bacteria, called bacterial vaginosis. You are being treated with an antibiotic called metronidazole. Do not drink alcohol while taking this medication. Complete all of the antibiotic even if your symptoms have resolved. Return for abdominal pain, vomiting, fever of greater than 101F, or any other symptoms that are worrisome to you. Please follow-up with your HEALTH PROFESSOR or primary care doctor as needed. Prescriptions: Dicyclomine HCl [Bentyl 20 mg Tablet] 20 mg PO QID PRN #30 tablet PRN Reason: Sucralfate [Carafate 1 gm Tablet] 1 gm PO ACHS #120 tablet Metronidazole [Flagyl 500 mg Tablet] 500 mg PO Q6H #28 tablet Famotidine [Pepcid 20 mg Tablet] 20 mg PO BID #60 tablet Ondansetron [Zofran Odt 4 mg Tablet] 1 - 2 tab PO Q4H PRN #30 tab.rapdis PRN Reason: For Nausea/Vomiting Forms: Return to School Referrals: CYRUS GALLARDO MD [Primary Care Provider] - Follow up as needed KIEL MARTÍNEZ MD [ACTIVE STAFF] - Follow up tomorrow
[2020-06-08 08:46] LABS: T.VAGINALIS (WET MOUNT) NO TRICHOMONAS SEEN
[2020-06-08 08:47] LABS: WBCS (WET MOUNT) 2+ WBCS SEEN; YEAST (WET MOUNT) NO YEAST SEEN
[2020-06-08 08:48] LABS: BACTERIA (WET MOUNT) 4+ BACTERIA SEEN; EPITHELIALS (WET MOUNT) 4+ EPITHELIALS SEEN
[2020-06-08 10:18] LABS: CHLAM PCR NOT DETECTED (NOT DETECT)
--- NOTE | 2020-06-08 10:34 | RADIOLOGY REPORT (SQ) ---
EXAM DESCRIPTION: CT ABD/PELVIS WITH IV ONLY IMAGES COMPLETED DATE/TIME: 06/08/2020 9:53 am REASON FOR STUDY: abdominal pain; vomiting COMPARISON: 05/21/2019 TECHNIQUE: CT scan of the abdomen and pelvis performed using helical scanning technique with dynamic intravenous contrast injection. No oral contrast. Images reviewed with lung, soft tissue, and bone windows. Reconstructed coronal and sagittal MPR images reviewed. Delayed images for evaluation of the urinary system also acquired. All images stored on PACS. All CT scanners at this facility use dose modulation, iterative reconstruction, and/or weight based d osing when appropriate to reduce radiation dose to as low as reasonably achievable (ALARA). [facility]: Dose Right [facility]: CareDose [facility]: Dose Right [facility]: Teradose 4D [facility]: [employer] CONTRAST TYPE AND DOSE: contrast/concentration: Isovue 350.00 mmol/ml; Total Contrast Delivered: 69. 0 ml; Total Saline Delivered: 58.8 ml RENAL FUNCTION: BUN 26, creatinine 0.62 RADIATION DOSE: CT Rad equipment meets quality standard of care and radiation dose reduction techniq ues were employed. CTDIvol: 5.0 - 6.2 mGy. DLP: 573 mGy-cm.. LIMITATIONS: None. FINDINGS: LOWER CHEST: No significant findings. No nodules or infiltrates. LIVER: Focal 2.0 cm air decreased attenuation in the right lobe of liver adjacent to the falciform li gament most consistent with focal fatty infiltration. SPLEEN: Normal size. No focal lesions. PANCREAS: No masses. No significant calcifications. No adjacent inflammation or peripancreatic fluid collections. Pancreatic duct not dilated. GALLBLADDER: No identified stones by CT criteria. No inflammatory changes to suggest cholecystitis. ADRENAL GLANDS: No significant masses or asymmetry. RIGHT KIDNEY AND URETER: No solid masses. No significant calcifications. No hydronephrosis or hyd roureter. LEFT KIDNEY AND URETER: No solid masses. No significant calcifications. No hydronephrosis or hydr oureter. AORTA AND VESSELS: No aneurysm. No dissection. Renal arteries, SMA, celiac without stenosis. RETROPERITONEUM: No retroperitoneal adenopathy, hemorrhage or masses. BOWEL AND PERITONEAL CAVITY: No masses or inflammatory changes. No free fluid or peritoneal masses. APPENDIX: Normal. PELVIS: No mass. No free fluid. Normal bladder. ABDOMINAL WALL: No masses. No hernias. BONES: No significant or acute findings. OTHER: No other significant finding. IMPRESSION: NO SIGNIFICANT OR ACUTE FINDING IN THE ABDOMEN OR PELVIS ON CT SCAN WITH IV CONTRAST. TECHNICAL DOCUMENTATION: JOB ID: [id number] Quality ID # [id number]: Final reports with documentation of one or more dose reduction techniques (e.g., Au tomated exposure control, adjustment of the mA and/or kV according to patient size, use of iterative reconstruction technique) 2010 [employer]- All Rights Reserved Reading location - IP/workstation name: [email or web address]
[2020-06-08 13:09] LABS: HEMATOCRIT 34.8 % (36.0-47.0); HEMOGLOBIN 11.8 g/dL (12.0-15.5); MEAN CORPUSCULAR HEMOGLOBIN 35.2 pg (27.0-33.4); MEAN CORPUSCULAR HGB CONC 33.9 g/dL (32.0-36.0); MEAN CORPUSCULAR VOLUME 104 fl (80-97); PLATELET COUNT 305 10^3/uL (150-450); RED BLOOD COUNT 3.35 10^6/uL (3.72-5.28); RED CELL DISTRIBUTION WIDTH 17.2 % (11.5-14.0)
--- NOTE | 2020-06-08 14:18 | RADIOLOGY REPORT (SQ) ---
EXAM DESCRIPTION: U/S ABDOMEN LIMITED W/O DOP IMAGES COMPLETED DATE/TIME: 06/08/2020 12:39 pm REASON FOR STUDY: RUQ abd pain COMPARISON: CT done earlier the same day. TECHNIQUE: Dynamic and static grayscale images acquired of the abdomen and recorded on PACS. Lyno amy selected color Doppler and spectral images recorded. LIMITATIONS: None. FINDINGS: PANCREAS: No masses. Visualized pancreatic duct normal caliber. LIVER: No masses. Echotexture normal. LIVER VASCULATURE: Normal directional flow of the main portal vein and hepatic veins. GALLBLADDER: No stones. Normal wall thickness. No pericholecystic fluid. ULTRASOUND-DETECTED SMITH'S SIGN: Negative. INTRAHEPATIC DUCTS AND COMMON DUCT: CBD and intrahepatic ducts normal caliber. No filling defects. AORTA: No aneurysm. RIGHT KIDNEY: Normal size. Normal echogenicity. No solid or suspicious masses. No hydronephrosis. No calcifications. PERITONEAL AND RIGHT PLEURAL SPACE: No ascites or effusions. OTHER: No other significant findings. IMPRESSION: NORMAL RIGHT UPPER QUADRANT ULTRASOUND. TECHNICAL DOCUMENTATION: JOB ID: [id number] 2010 [email or web address]- All Rights Reserved Reading location - IP/workstation name: [email or web address]
[2020-06-08 15:01] VITALS: BP 123/68
== END 2020-06-08 15:01 | disposition home or self-care (01) ==
LOC: ER 01:40
DX: R11.10 Vomiting, unspecified (principal); R10.9 Unspecified abdominal pain; F17.200 Nicotine dependence, unspecified, uncomplicated; E78.00 Pure hypercholesterolemia, unspecified; I10 Essential (primary) hypertension
CPT/HCPCS: 96376; 99284; 96372; 96361; 96374; 96375; 36415; 87086; 87210; 83690; 85025; 80053; 81001; 87491; 87591; 76705; 74177; J0500; J2765; J2270; J2405; J7030

== ENCOUNTER 2020-06-11 04:16 | Emergency (ER) | payer OTHER ==
[2020-06-11 05:42] LABS: ABSOLUTE BASOPHILS # (AUTO) 0.1 10^3/uL (0.0-0.2); BASOPHILS % (AUTO) 0.9 % (0-2); EOSINOPHILS % (AUTO) 0.2 % (0-6); TOTAL CELLS COUNTED % (AUTO) 100 %
[2020-06-11] MEDS ORDERED: ONDANSETRON HCL INJ/PF 4 MG/2 ML SDV IV ONE ×2 (05:45→08:20)
[2020-06-11 05:48] LABS: ABSOLUTE LYMPHOCYTES (AUTO) 1.2 10^3/uL (0.5-4.7); ABSOLUTE MONOCYTES (AUTO) 0.6 10^3/uL (0.1-1.4); HEMATOCRIT 19.1 % (36.0-47.0); LYMPHOCYTES % (AUTO) 11.7 % (13-45); MEAN CORPUSCULAR HEMOGLOBIN 35.3 pg (27.0-33.4); MEAN CORPUSCULAR HGB CONC 34.2 g/dL (32.0-36.0); MEAN CORPUSCULAR VOLUME 103 fl (80-97); PLATELET COUNT 387 10^3/uL (150-450); RED BLOOD COUNT 1.85 10^6/uL (3.72-5.28); RED CELL DISTRIBUTION WIDTH 15.9 % (11.5-14.0); SEGMENTED NEUTROPHILS % (AUTO) 81.2 % (42-78); WHITE BLOOD COUNT 9.9 10^3/uL (4.0-10.5)
[2020-06-11] MEDS ORDERED: NORMAL SALINE 250 ML IV PRN ×4 (05:59→07:44)
[2020-06-11] MEDS ORDERED: PANTOPRAZOLE SODIUM 40 MG VIAL IV ONE (06:05)
--- NOTE | 2020-06-11 06:05 | ER Document Report ---
ED GI Bleed / Rectal Pain - General Stated Complaint: VOMITING BLOOD Time Seen by Provider: 06/11/20 05:32 Primary Care Provider: CYRUS GALLARDO MD [Primary Care Provider] - Follow up as needed Mode of Arrival: Medic Information source: Patient Notes: 40-year-old female patient presents emergency department concern for vomiting blood. Patient reports she has been having episodes of vomiting blood for the last week, she states that the symptoms had subsided for a couple of days but r eturned today, she vomited a large amount of blood twice today per her report. She also reports epigastric pain and back pain. She states this is also been going on for the last week. Tonight she states she felt very faint and passed out. TRAVEL OUTSIDE OF THE [place] IN LAST 30 DAYS: No - Related Data Allergies/Adverse Reactions: No Known Allergies Allergy (Verified 06/06/20 21:32) Past Medical History - General Information source: Patient - Social History Smoking Status: Never Smoker Frequency of alcohol use: None Drug Abuse: None Family History: Reviewed & Not Pertinent - Past Medical History Cardiac Medical History: Reports: Hx Hypercholesterolemia, Hx Hypertension Neurological Medical History: Reports: Hx Migraine. Denies: Hx Seizures Endocrine Medical History: Denies: Hx Diabetes Mellitus Type 1, Hx Diabetes Mellitus Type 2 Renal/ Medical History: Denies: Hx Peritoneal Dialysis GI Medical History: Reports: Hx Ulcer. Denies: Hx Irritable Bowel Psychiatric Medical History: Reports: Hx Depression Past Surgical History: Reports: Hx Section - X3, Hx Genitourinary Surgery - D&Cs x 2, Hx Hysterectomy - Immunizations Hx Diphtheria, Pertussis, Tetanus Vaccination: Yes Review of Systems - Review of Systems Constitutional: Weakness, Weight loss EENT: No symptoms reported Cardiovascular: Lightheaded Respiratory: No symptoms reported Gastrointestinal: Vomiting, Blood in vomit Genitourinary: No symptoms reported Female Genitourinary: No symptoms reported Musculoskeletal: No symptoms reported Skin: No symptoms reported Hematologic/Lymphatic: No symptoms reported Neurological/Psychological: No symptoms reported Physical Exam - Vital signs Vitals: Temp Pulse Resp BP Pulse Ox 98.3 F 117 H 16 85/44 L 98 06/11/20 04:24 06/11/20 04:24 06/11/20 04:24 06/11/20 04:24 06/11/20 04:24 - Notes Notes: PHYSICAL EXAMINATION: GENERAL: Ill-appearing patient, interactive, sluggish. HEAD: Atraumatic, normocephalic. EYES: Pupils equal round and reactive to light, extraocular movements intact, conjunctiva are normal. ENT: Nares patent, oropharynx clear without exudates. Moist mucous membranes. NECK: Normal range of motion, supple without lymphadenopathy LUNGS: Breath sounds clear to auscultation bilaterally and equal. No wheezes rales or rhonchi. HEART: Regular rate and rhythm without murmurs ABDOMEN: Soft, nontender, nondistended abdomen. No guarding, no rebound. No masses appreciated. Female : deferred Musculoskeletal: Normal range of motion, no pitting or edema. No cyanosis. NEUROLOGICAL: Cranial nerves grossly intact. Normal speech, normal gait. Normal sensory, motor exams PSYCH: Normal mood, normal affect. Course - Re-evaluation Re-evalutation: 06/11/20 06:07 Lab called patient's hemoglobin is 6.8. It was 11.8 in this facility 3 days ago. The lab has been called for emergency release blood. Protonix bolus and drip ordered. Patient remains alert, answering questions, patient gave verbal consent to myself and the charge nurse for blood transfusion. 06/11/20 06:44 Patient accepted for transfer to [facility], Dr. Garcia accepting on behalf of Dr. Rasheeda Warner. 06/11/20 07:45 Patient has octreotide and Protonix drip infusing. We have just ordered 1/3 L of packed red cells. Transport will be here at 0815. Patient and spouse updated on plan of care. Patient stable at this time. 06/11/20 08:20 Transport is at bedside to transport patient to [facility]. Patient is in stable condition at this time. She is alert, oriented, pain and nausea medications ordered. - Vital Signs Vital signs: Temp Pulse Resp BP Pulse Ox 98.1 F 117 H 20 121/81 100 06/11/20 06:35 06/11/20 04:24 06/11/20 08:01 06/11/20 08:01 06/11/20 08:01 - Laboratory Result Diagrams: 06/11/20 05:17 06/11/20 05:17 Laboratory results interpreted by me: 06/11/20 06/11/20 06/11/20 05:17 05:17 06:44 RBC 1.85 L Hgb 6.5 L D Hct 19.1 L MCV 103 H MCH 35.3 H RDW 15.9 H Lymph % (Auto) 11.7 L Seg Neutrophils % 81.2 H Sodium 135.5 L Potassium 3.5 L Carbon Dioxide 21 L Glucose 121 H Total Bilirubin 0.1 L Alkaline Phosphatase 35 L Total Protein 5.7 L Albumin 3.1 L Crossmatch See Detail Discharge - Discharge Clinical Impression: GI bleed Qualifiers: GI bleed type/associated pathology: unspecified gastrointestinal hemorrhage type Qualified Code(s): K92.2 - Gastrointestinal hemorrhage, unspecified Hematemesis Qualifiers: Nausea presence: with nausea Qualified Code(s): K92.0 - Hematemesis Condition: Fair Disposition: [facility] Referrals: CYRUS GALLARDO MD [Primary Care Provider] - Follow up as needed
[2020-06-11 06:06] LABS: ALBUMIN 3.1 g/dL (3.5-5.0); ALKALINE PHOSPHATASE 35 U/L (38-126); ASPARTATE AMINO TRANSFERASE 17 U/L (14-36); BILIRUBIN,TOTAL 0.1 mg/dL (0.2-1.3); BLOOD UREA NITROGEN 17 mg/dL (7-20); CALCIUM 8.7 mg/dL (8.4-10.2); CARBON DIOXIDE 21 mmol/L (22-30); GLUCOSE 121 mg/dL (75-110); POTASSIUM 3.5 mmol/L (3.6-5.0); TOTAL PROTEIN 5.7 g/dL (6.3-8.2)
[2020-06-11] MEDS ORDERED: PANTOPRAZOLE SODIUM 40 MG VIAL IV PRN (06:07)
[2020-06-11 06:08] LABS: ANION GAP 10 (5-19); CHLORIDE 105 mmol/L (98-107)
[2020-06-11 06:11] LABS: HEMOGLOBIN 6.5 g/dL (12.0-15.5)
[2020-06-11] MEDS ORDERED: OCTREOTIDE ACETATE INJ/PF 100 MCG/1 ML SDV IV ONE (06:39)
[2020-06-11] MEDS ORDERED: NORMAL SALINE 500 ML with OCTREOTIDE ACETATE 500 MCG IV PRN ×2 (06:41)
[2020-06-11] MEDS ORDERED: OCTREOTIDE ACETATE INJ/PF 100 MCG/1 ML SDV ONE (06:51)
[2020-06-11] MEDS ORDERED: METOCLOPRAMIDE HCL INJ/PF 10 MG/2 ML SDV IV ONE (07:20)
[2020-06-11] MEDS ORDERED: MORPHINE SULFATE 10 MG/ML INJ IV ONE (08:20)
[2020-06-11 08:35] VITALS: BP 125/81
== END 2020-06-11 08:41 | disposition short-term general hospital (02) ==
LOC: ER 04:16
DX: K92.2 Gastrointestinal hemorrhage, unspecified (principal); K92.0 Hematemesis; R10.13 Epigastric pain; E78.00 Pure hypercholesterolemia, unspecified; I10 Essential (primary) hypertension
CPT/HCPCS: 96376; 99285; 96375; 96365; 96368; 86900; 86901; 36415; 36430; 86850; 83690; 85025; 80053; 86920; P9016; J2765; J2270; J2354; C9113; J2405